=== PATIENT | female | born 1945 | race Caucasian/White ===

== ENCOUNTER → 2017-09-01 08:37 | Outpatient (CLI) | payer MEDICARE, SELFPAY ==
[2017-09-01 09:36] LABS: Alanine Aminotransferase 39 IU/L (9-52); Albumin 4.3 g/dL (3.5-5.0); Albumin Globulin Ratio 1.3 (1.0-2.8); Alkaline Phosphatase 87 U/L (38-126); Aspartate Aminotransferase 27 IU/L (14-36); BUN Creatinine Ratio 26.3 (6-22); Bilirubin Total 0.4 mg/dL (0.2-1.3); Blood Urea Nitrogen 21 mg/dL (7-17); Calcium 9.2 mg/dL (8.4-10.2); Carbon Dioxide 27 mmol/L (22-32); Chloride 102 mmol/L (98-107); Cholesterol 210 mg/dL (140-199); Estimated Glomerular Filt Rate > 60.0 mL/min (>60); Globulin 3.3 g/dL (1.7-4.1); Glucose 110 mg/dL (80-110); HDL Cholesterol 44 mg/dL (40-60); HEMOLYSIS < 15 (0-50); LDL Cholesterol Calculated 135 mg/dL (<100); Potassium 4.1 mmol/L (3.4-5.1); Sodium 143 mmol/L (137-145); Total Protein 7.6 g/dL (6.3-8.2); Triglycerides 157 mg/dL (35-150)
== END ==
PROVIDERS: PCP Family Medicine; Visit Provider Family Medicine
DX: E78.2 Mixed hyperlipidemia (principal)
CPT/HCPCS: 36415; 80053; 80061

== ENCOUNTER → 2017-09-06 10:12 | Outpatient (CLI) | payer MEDICARE, SELFPAY ==
[2017-09-06 11:20] LABS: Add Manual Diff / Slide Review NO; Basophils Percent Auto 1.3 % (0-2); Eosinophils Percent Auto 4.4 % (2-4); Hematocrit 42.5 % (36-46); Hemoglobin 14.2 g/dL (12.0-16.0); Lymphocytes Percent Auto 34.5 % (25-40); Mean Corpuscular HGB Conc 33.5 % (30-36); Mean Corpuscular Hemoglobin 29.9 PG (26-34); Mean Corpuscular Volume 89.3 fL (80-100); Monocytes Percent Auto 4.4 % (3-14); Neutrophils Absolute Auto 5000 /uL (3000-5900); Neutrophils Percent Auto 55.4 % (50-75); Platelet Count 341 X10^3/uL (150-400); Red Blood Cell Count 4.76 X10^6/uL (4.0-5.2); Red Cell Distribution Width 14.6 % (11.6-14.8); White Blood Cell Count 8.9 X10^3/uL (4.5-11.0)
== END ==
PROVIDERS: PCP Family Medicine; Visit Provider Family Medicine
DX: D72.829 Elevated white blood cell count, unspecified (principal)
CPT/HCPCS: 36415; 85025

== ENCOUNTER 2018-03-01 09:13 | Emergency (ER) | payer MEDICARE, SELFPAY ==
[2018-03-01 09:31] VITALS: BP 140/73; PULSE 73; RESP 18; TEMP 36.9; O2SAT 96
--- NOTE | 2018-03-01 09:33 | DI.RAD.S_ITS ---
PROCEDURE: XR KNEE RT 3V INDICATIONS: fall/twist TECHNIQUE: 3 views of the knee were acquired. COMPARISON: None. FINDINGS: Bones: There is a poorly seen fracture involving the lateral tibial plateau. Degenerative changes are seen throughout, including moderate lateral patellofemoral joint space narrowing. Osteophyte formation can be seen along the margins of the patella. Soft tissues: There is a moderate joint effusion. No suspicious soft tissue calcifications. IMPRESSION: Fracture involving the lateral tibial plateau, with associated joint effusion. The scheduled CT study is expected to provide additional diagnostic information. Dictated by: Deejay Solorzano M.D. on 03/01/2018 at 9:56 Approved by: Deejay Solorzano M.D. on 03/01/2018 at 9:58
--- NOTE | 2018-03-01 09:45 | PC.NURSE ---
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
--- NOTE | 2018-03-01 10:48 | ED.LOWEXIN ---
HPI - Extremity Injury (Lower) General Chief Complaint: Extremity Injury, Lower Stated Complaint: FELL AND HURT R KNEE Time Seen by Provider: 03/01/18 10:11 Source: patient Mode of arrival: wheelchair Limitations: no limitations History of Present Illness HPI Narrative: Patient is a 72-year-old female who presents with right knee pain. She was walking the dog when she slipped on the cannon. As she fell onto her elbow she thinks she twisted her knee. She has no numbness or tingling did not have a direct fall onto it. She says that she has known osteopenia. MD complaint: knee injury Related Data Home Medications Medication Instructions Recorded Confirmed albuterol sulfate [Ventolin HFA] 2 puff INH Q4HP PRN #0 06/15/17 03/01/18 aspirin 81 mg tablet,delayed 81 mg PO DAILY tab 09/11/17 03/01/18 release Vitamin D3 1 cap PO DAILY 12/03/17 03/01/18 multivitamin tablet 1 tab PO DAILY 12/03/17 03/01/18 Coq10 1 dose PO DAILY 03/01/18 03/01/18 Fish Oil 1 cap PO DAILY 03/01/18 03/01/18 Magnesium 1 dose PO DAILY 03/01/18 03/01/18 Potassium 1 dose PO DAILY 03/01/18 03/01/18 lisinopril-hydrochlorothiazide 1 tab PO DAILY 03/01/18 03/01/18 [Zestoretic] simvastatin 20 mg PO BEDTIME 03/01/18 03/01/18 Previous Rx's Medication Instructions Recorded tramadol [Ultram] 50 mg PO Q6H PRN #14 tab 03/01/18 Allergies Allergy/AdvReac Type Severity Reaction Status Date / Time peanut [PEANUT] Allergy Severe ASTHMA Verified 12/03/17 15:18 REACTION Sulfa (Sulfonamide Allergy Severe WELTS Verified 12/03/17 15:18 Antibiotics) [SULFA (SULFONAMIDE ANTIBIOTICS)] oyster extract Allergy Intermediate Mild Verified 12/03/17 15:18 [OYSTER EXTRACT] throat swelling Penicillins [PENICILLINS] Allergy Mild DIARRHEA Verified 12/03/17 15:18 morphine [MORPHINE] AdvReac Mild NAUSEA, Verified 12/03/17 15:18 DID NOT WORK FOR PAIN Review of Systems Review of Systems GENERAL: Denies chills,fever HEENT: Denies throat pain RESPIRATORY: Denies dyspnea, cough, wheezing CARDIOVASCULAR: Denies chest pain, palpitations GASTROINTESTINAL: Denies nausea, vomiting MUSCULOSKELETAL: see hPi SKIN: No rash, no laceration, no pruritus NEUROLOGIC: Denies weakness, dizziness, headache, numbness 8 point review of systems is negative except for those stated above and HPI PFSH Medical History Allergic rhinitis (Chronic Unknown) Asthma (Chronic Unknown) Asthma (Chronic Unknown) Carpal tunnel syndrome (Chronic Unknown) Chronic back pain (Chronic Unknown) Eczema (Chronic Unknown) Glaucoma (Chronic 2013) Hyperlipemia (Chronic Unknown) Hypertension (Chronic Unknown) Lumbar disc disease (Chronic Unknown) Osteopenia (Chronic Unknown) Ankle pain (Resolved Unknown) Cataracts, bilateral (Resolved ~2014) Foot pain (Resolved Unknown) Fractures (Resolved Unknown) Heavy menstrual period (Resolved ~1958) Painful menstrual periods (Resolved ~1958) Shoulder pain (Resolved Unknown) Surgical History History of left hip replacement (Resolved 2015) Hx of appendectomy (Resolved 2015) Hx of cataract surgery (Resolved 2014) Hx of tonsillectomy (Resolved ~1953) Family History Child Age: 41 Heart disease Hypertension Stroke Mother Hypertension Stroke High cholesterol Father Heart disease Grandmother Heart disease Grandmother No problems noted. Social History Smoking Status: Former smoker Tobacco: How many years used: 5 alcohol intake: current (occasional) Exam Initial Vital Signs Initial Vital Signs: Vital Signs Temperature 98.4 F 03/01/18 09:31 Pulse Rate 73 03/01/18 09:31 Respiratory Rate 18 03/01/18 09:31 Blood Pressure 140/73 03/01/18 09:31 Pulse Oximetry 96 03/01/18 09:31 GENERAL: A well-appearing alert female cooperative HEENT: Head atraumatic,EOMI, pupils reactive, CARDIOVASCULAR: Regular rate and rhythm without murmurs, rubs or gallops. RESPIRATORY: Breath sounds equal bilaterally, no wheezes rales or rhonchi. ABDOMEN: Soft, nontender. Normoactive bowel sounds all 4 quadrants. No guarding or rebound. EXTREMITIES: Normal range of motion, no clubbing or edema. Neurovascularly intact -right knee mild effusion able to flex and extend distal pedal pulse intact NEUROLOGICAL: Alert and oriented x4.Normal gait and speech. Cranial nerves II through XII grossly intact. SKIN: Warm, dry, no laceration, no petechiae, no rashes or lesions. Course Orders Ordered: ED Orders 03/01/18 09:33 XR knee RT 3V Stat 03/01/18 11:00 CT LE RT wo con Stat Vital Signs - 8 hr 03/01/18 12:24 Pulse Rate 77 Respiratory Rate 17 Blood Pressure [Left Arm] 124/87 Pulse Oximetry 100 MDM - Extremity Injury (Lower) Imaging Data right Knee XR: My impression: Right tibial plateau fracture Radiologist's impression: PROCEDURE: XR KNEE RT 3V INDICATIONS: fall/twist TECHNIQUE: 3 views of the knee were acquired. COMPARISON: None. FINDINGS: Bones: There is a poorly seen fracture involving the lateral tibial plateau. Degenerative changes are seen throughout, including moderate lateral patellofemoral joint space narrowing. Osteophyte formation can be seen along the margins of the patella. Soft tissues: There is a moderate joint effusion. No suspicious soft tissue calcifications. IMPRESSION: Fracture involving the lateral tibial plateau, with associated joint effusion. The scheduled CT study is expected to provide additional diagnostic information. Dictated by: Deejay Solorzano M.D. on 03/01/2018 at 9:56 Approved by: Deejay Solorzano M.D. on 03/01/2018 at 9: CT LE RT: Radiologist's impression: PROCEDURE: CT LE RT WO CON INDICATIONS: Tibial plateau fracture requested Orthopedics TECHNIQUE: Noncontrast 1-1.5 mm axial sections acquired from the mid-patella to the proximal tibia, with coronal and sagittal reformats. [facility], 03/01/2018, 9:35. FINDINGS: Image quality: Excellent. Bones: There is a fracture involving the posterior aspect of the lateral tibial plateau with 4 mm depression (Schatzker II). The involved area measures 2.8 cm anterior-posterior and 12 cm transverse. A small bone island is noted in the tibial eminence. Soft tissues: There is moderate knee joint effusion with a fat/fluid level consistent with hemarthrosis. IMPRESSION: Schatzker II fracture of the lateral tibial plateau with 4 mm central depression. There is moderate hemarthrosis. Dictated by: David Alcantar M.D. on 03/01/2018 at 11:25 MDM Narrative Medical decision making narrative: Dr. Cifuentes has reviewed x-ray request CT. She has reviewed the CT as well. Agrees with knee immobilization nonweightbearing and outpatient follow-up. Discharge Plan Departure Patient Disposition: Home Clinical Impression: Closed fracture of right tibial plateau Discharge Date/Time: 03/01/18 12:43 Interventions: ED Discharge Assessment Last Done: 03/01/18 12:41 Instructions: DI for Tibial Plateau Fracture Activity Restrictions/Additional Instructions: *You have been diagnosed with right tibial plateau fracture *What to do: Keep knee in immobilizer at all times no weight-bearing use crutches *Continue to take medications as directed -tramadol 1 tablet every 6-8 hours if needed for severe pain Tylenol 650 mg every 4 hr if needed mild pain *Follow up with your primary care provider in 2-3 days, up with Orthopedics, call today to schedule up *Return to ER if you should have increasing pain, numbness, tingling or any new, worsening or concerning symptoms CONTROLLED SUBSTANCE DISCHARGE (Narcotoic/benzodiazepine/Flexeril/Phenergan) 1. You have been prescribed narcotic medications, it does have acetaminophen/Tylenol/paracetamol in it so do not take extra Tylenol or Tylenol containing products 2. Please understand that we cannot provide further refills of narcotics, benzodiazepines or controlled substances through the ED and her pain management will need to be through your provider. 3. While on these medications you cannot drive or operate heavy machinery. 4. You cannot sign legal documents or perform any duties such as this. 5. As long as you're taking opiate pain medications he should also be taking a stool softener such as Colace, Dulcolax, MiraLAX or prune juice, to help avoid constipation. Prescriptions: New tramadol [Ultram] 50 mg tablet 50 mg PO Q6H PRN (Reason: pain) Qty: 14 RF: 0 No Action multivitamin Tablet 1 tab PO DAILY RF: 0 Vitamin D3 1 cap PO DAILY RF: 0 aspirin [Adult Low Dose Aspirin] 81 mg tablet,delayed release (DR/EC) 81 mg PO DAILY RF: 0 albuterol sulfate [Ventolin HFA] 90 MCG/PUFF HFA aerosol inhaler 2 puff INH Q4HP PRN (Reason: Shortness Of Breath) Qty: 0 RF: 0 lisinopril-hydrochlorothiazide [Zestoretic] 20-12.5 mg tablet 1 tab PO DAILY RF: 0 simvastatin 20 mg tablet 20 mg PO BEDTIME RF: 0 Fish Oil 1 cap PO DAILY RF: 0 Magnesium 1 dose PO DAILY RF: 0 Potassium 1 dose PO DAILY RF: 0 Coq10 1 dose PO DAILY RF: 0 Referrals: [facility] [Provider Group] Chi Buckner MD [Primary Care Provider] -
--- NOTE | 2018-03-01 11:00 | DI.CT.S_ITS ---
PROCEDURE: CT LE RT WO CON INDICATIONS: Tibial plateau fracture requested Orthopedics TECHNIQUE: Noncontrast 1-1.5 mm axial sections acquired from the mid-patella to the proximal tibia, with coronal and sagittal reformats. COMPARISON: [facility], CR, XR KNEE RT 3V, 03/01/2018, 9:35. FINDINGS: Image quality: Excellent. Bones: There is a fracture involving the posterior aspect of the lateral tibial plateau with 4 mm depression (Schatzker II). The involved area measures 2.8 cm anterior-posterior and 12 cm transverse. A small bone island is noted in the tibial eminence. Soft tissues: There is moderate knee joint effusion with a fat/fluid level consistent with hemarthrosis. IMPRESSION: Schatzker II fracture of the lateral tibial plateau with 4 mm central depression. There is moderate hemarthrosis. Dictated by: David Alcantar M.D. on 03/01/2018 at 11:25 Approved by: David Alacntar M.D. on 03/01/2018 at 11:35
[2018-03-01 12:24] VITALS: BP 124/87; PULSE 77; RESP 17; O2SAT 100
--- NOTE | 2018-03-01 12:41 | PC.NURSE ---
pair of cruthes provided, education provided, verbal understandin instructions.
--- NOTE | 2018-03-01 12:43 | PC.NURSE ---
friend coming for a ride.
== END 2018-03-01 12:43 | disposition home or self-care (01) ==
PROVIDERS: Emergency Provider Emergency Medicine; Family Provider Internal Medicine; PCP Internal Medicine
DX: M25.561 Pain in right knee (principal); W01.0XXA Fall on same level from slipping, tripping and stumbling without subsequent striking against object, initial encounter; Y93.K1 Activity, walking an animal
CPT/HCPCS: 73562; 73700; 99283; 99284

== ENCOUNTER → 2018-12-18 11:07 | Outpatient (CLI) | payer MEDICARE, SELFPAY ==
[2018-12-18 11:48] LABS: Alanine Aminotransferase 25 IU/L (9-52); Albumin 4.5 g/dL (3.5-5.0); Albumin Globulin Ratio 1.6 (1.0-2.8); Alkaline Phosphatase 78 U/L (38-126); Aspartate Aminotransferase 24 IU/L (14-36); BUN Creatinine Ratio 26.3 (6-22); Bilirubin Total 0.5 mg/dL (0.2-1.3); Blood Urea Nitrogen 21 mg/dL (7-17); Calcium 10.6 mg/dL (8.4-10.2); Carbon Dioxide 25 mmol/L (22-32); Chloride 105 mmol/L (98-107); Cholesterol 222 mg/dL (140-199); Estimated Glomerular Filt Rate > 60.0 mL/min (>60); Globulin 2.9 g/dL (1.7-4.1); Glucose 115 mg/dL (80-110); HDL Cholesterol 66 mg/dL (40-60); HEMOLYSIS < 15 (0-50); LDL Cholesterol Calculated 117 mg/dL (<100); Potassium 4.6 mmol/L (3.4-5.1); Sodium 142 mmol/L (137-145); Total Protein 7.4 g/dL (6.3-8.2); Triglycerides 196 mg/dL (35-150)
== END ==
PROVIDERS: PCP Internal Medicine; Visit Provider Internal Medicine
DX: E78.5 Hyperlipidemia, unspecified (principal)
CPT/HCPCS: 36415; 80053; 80061

== ENCOUNTER → 2019-01-25 15:07 | Outpatient (CLI) | payer MEDICARE, SELFPAY ==
[2019-01-25 15:40] LABS: Hemoglobin A1C% w Est Avg Glu 5.6 % (4.0-6.0)
[2019-01-25 15:47] LABS: Uric Acid 4.2 mg/dL (2.5-6.2)
== END ==
PROVIDERS: PCP Internal Medicine; Visit Provider Internal Medicine
DX: M10.9 Gout, unspecified (principal); E11.9 Type 2 diabetes mellitus without complications
CPT/HCPCS: 36415; 83036; 84550

== ENCOUNTER → 2019-04-18 15:26 | Outpatient (CLI) | payer MEDICARE, SELFPAY ==
--- NOTE | 2019-04-18 | DI.RAD.S_ITS ---
PROCEDURE: XR ANKLE RT MIN 3V INDICATIONS: ANKLE PAIN TECHNIQUE: 3 views of the ankle were acquired. COMPARISON: None. FINDINGS: Bones: There is a nondisplaced lucency at the distal fibula. Soft tissues: Mild bimalleolar edema. Achilles tendon appears normal. IMPRESSION: Nondisplaced distal fibular lucency consistent with fracture. Dictated by: Agustina South M.D. on 04/18/2019 at 17:06 Approved by: Agustina South M.D. on 04/18/2019 at 17:07
== END ==
PROVIDERS: PCP Internal Medicine; Visit Provider Nurse Practitioner Family
DX: M25.571 Pain in right ankle and joints of right foot (principal)
CPT/HCPCS: 73610

== ENCOUNTER → 2019-11-05 11:48 | Outpatient (CLI) | payer MEDICARE, SELFPAY ==
[2019-11-05 13:41] LABS: BUN Creatinine Ratio 24.7 (6-22); Blood Urea Nitrogen 21 mg/dL (7-17); Calcium 10.1 mg/dL (8.4-10.2); Carbon Dioxide 23 mmol/L (22-32); Chloride 105 mmol/L (98-107); Estimated Glomerular Filt Rate > 60.0 mL/min (>60); HEMOLYSIS < 15 (0-50); Potassium 4.5 mmol/L (3.4-5.1); Sodium 139 mmol/L (137-145)
[2019-11-05 13:57] LABS: Glucose 86 mg/dL (80-110)
== END ==
PROVIDERS: PCP Student in an Organized Health Care Education/Training Program; Referring Provider Student in an Organized Health Care Education/Training Program; Visit Provider Student in an Organized Health Care Education/Training Program
DX: I10 Essential (primary) hypertension (principal)
CPT/HCPCS: 36415; 80048

== ENCOUNTER → 2020-04-17 10:56 | Outpatient (CLI) | payer MEDICARE, SELFPAY ==
[2020-04-17] MEDS: COVID-19 VACC #1, MRNA(MOD) 100 MCG/0.5 ML VIAL IM (11:02)
== END ==
PROVIDERS: PCP Student in an Organized Health Care Education/Training Program; Visit Provider Internal Medicine
DX: Z23 Encounter for immunization (principal)
CPT/HCPCS: 0011A; 91301

== ENCOUNTER → 2020-05-08 13:02 | Outpatient (CLI) | payer MEDICARE, SELFPAY | PROVIDERS: PCP Nurse Practitioner Family; Referring Provider Nurse Practitioner Family; Visit Provider Nurse Practitioner Family | DX: M85.832 Other specified disorders of bone density and structure, left forearm (principal); Z78.0 Asymptomatic menopausal state; Z87.891 Personal history of nicotine dependence | CPT/HCPCS: 77080; 77081 ==

== ENCOUNTER → 2020-05-15 10:54 | Outpatient (CLI) | payer MEDICARE, SELFPAY ==
[2020-05-15] MEDS: COVID-19 VACC #2, MRNA(MOD) 100 MCG/0.5 ML VIAL IM (11:00)
== END ==
PROVIDERS: PCP Nurse Practitioner Family; Visit Provider Internal Medicine
DX: Z23 Encounter for immunization (principal)
CPT/HCPCS: 0012A; 91301

== ENCOUNTER → 2020-06-10 09:04 | Outpatient (CLI) | payer MEDICARE, SELFPAY ==
[2020-06-10 11:21] LABS: COVID19 -Nasal RAPID Negative (Negative)
== END ==
PROVIDERS: PCP Nurse Practitioner Family; Visit Provider Physician Assistant
DX: Z01.812 Encounter for preprocedural laboratory examination (principal); Z20.822 Contact with and (suspected) exposure to COVID-19
CPT/HCPCS: 87635; C9803

== ENCOUNTER 2020-06-12 12:31 | Day surgery (SDC) | payer MEDICARE, SELFPAY ==
--- NOTE | 2020-06-12 12:01 | PM.HP.1 ---
History of Present Illness History of Present Illness Date Patient Seen: 06/12/20 Chief complaint: SCREENING COLONOSCOPY Narrative: 74 year old female comes in today for consideration of a screening colonoscopy. Has never had a colonoscopy. She did have a sigmoidoscopy many years ago, approximately 30, reportedly normal. There have been no lower GI symptoms suggesting disease such as change in bowel habits, bleeding, abdominal pain or anemia. There's been no family history of colon cancer or colon polyps. Overall health issues have been stable, including no major cardiac events for at least 6 weeks. PCP: REJI Cesar Past medical history Hypertension Hyperlipidemia Gout Depression Mild intermittent asthma Allergies Chronic pain Eczema Lumbar disc disease Osteopenia Past surgical history: History of left replacement, bilateral Appendectomy Cataracts Tonsillectomy Family history: No colon cancer or colon polyps. Social history: to [employer] [facility]. Occasional alcohol use, former smoker. Patient History Medical History (Updated 06/10/20 @ 17:00 by Karla Buckner RN) Allergic rhinitis (Unknown) Ankle pain (Unknown) Asthma (Unknown) Asthma (Unknown) Carpal tunnel syndrome (Unknown) Cataracts, bilateral (~2014) Chronic back pain (Unknown) Depression Depression, controlled Eczema (Unknown) Foot pain (Unknown) Fractures (Unknown) Glaucoma (2012) Heavy menstrual period (~1958) Hyperlipemia (Unknown) Hypertension (Unknown) Lumbar disc disease (Unknown) Osteopenia (Unknown) Painful menstrual periods (~1958) Shoulder pain (Unknown) Surgical History (Updated 11/09/19 @ 10:50 by Ramos Barr MD) History of left hip replacement (2015) Hx of appendectomy (2015) Hx of cataract surgery (2014) Hx of tonsillectomy (~1953) Family & Social History Family History (Updated 10/03/17 @ 16:55 by Debora Meléndez LPN) Child Age: 43 Heart disease Hypertension Stroke Mother Hypertension Stroke High cholesterol Father Heart disease Grandmother Heart disease Grandmother No problems noted. Tobacco & Substance use: Smoking Status Former smoker alcohol intake current alcohol intake frequency other Substance Use Type does not use Meds Home Medications and Allergies Home Medications Medication Instructions Recorded Confirmed Type albuterol sulfate [Ventolin HFA] 2 puff INH Q4HP PRN #0 06/15/17 06/12/20 History aspirin 81 mg tablet,delayed 81 mg PO DAILY tab 09/11/17 06/12/20 History release Vitamin D3 1 cap PO DAILY 12/03/17 06/12/20 History multivitamin 1 tab PO DAILY 12/03/17 06/12/20 History Fish Oil 1 cap PO DAILY 03/01/18 06/12/20 History Magnesium 1 dose DAILY 03/01/18 06/12/20 History simvastatin 20 mg PO BEDTIME 03/01/18 06/12/20 History allopurinol 300 mg tablet 300 mg PO tab 11/05/19 11/05/19 History bupropion HCl 300 mg 24 hr tablet, 300 mg PO DAILY tab 11/05/19 06/12/20 History extended release lisinopril 20 mg tablet 20 mg PO DAILY tab 11/05/19 06/12/20 History Allergies Allergy/AdvReac Type Severity Reaction Status Date / Time peanut [PEANUT] Allergy Severe ASTHMA Verified 11/05/19 11:04 REACTION Sulfa (Sulfonamide Allergy Severe WELTS Verified 11/05/19 11:04 Antibiotics) [SULFA (SULFONAMIDE ANTIBIOTICS)] oyster extract Allergy Intermediate Mild Verified 11/05/19 11:04 [OYSTER EXTRACT] throat swelling Penicillins [PENICILLINS] Allergy Mild DIARRHEA Verified 11/05/19 11:04 morphine [MORPHINE] AdvReac Mild NAUSEA, Verified 11/05/19 11:04 DID NOT WORK FOR PAIN Review of Systems Review of Systems ROS: Yes All systems reviewed with the patient and are negative except as otherwise documented Exam Narrative Exam Narrative: GENERAL: Alert and oriented, appearing stated age and in no acute distress. HEENT: Head normocephalic/atraumatic. Pupils equal, round, and reactive to light and accomodation. Extraocular muscles intact. Tympanic membranes clear. Nasal mucosa moist, septum midline. Oral mucosa moist, no lesions. Neck soft and supple, no lymphadenopathy. LUNGS: Clear to ausculation bilaterally, no wheezes, rhonchi or rales. CV: Normal S1 and S2 with regular rate and rhythm, no audible murmurs, rubs or gallops. ABDOMEN: Soft, non-tender, non-distended, no organomegaly. Positive bowel sounds. EXTREMITIES: No clubbing, cyanosis, or edema. NEURO: Cranial nerves II through XII grossly intact, no focal deficits. PSYCH: Alert and oriented x 3. SKIN: No concerning lesions. Assessment & Plan Assessment & Plan narrative: 1. Screening for colon cancer Plan for colonoscopy. The nature and character of the procedure as well as anticipated results were discussed. The possibility of not completing the procedure was also discussed. Possible complications including aspiration pneumonia, bleeding, perforation and reaction to medications either for sedation or preparation and missed lesions were discussed. Questions were answered and proceeding to the colonoscopy was elected. Informed consent signed. I sincerely appreciate the referral allowing me to participate in this patient's care. Please contact me with any questions or concerns. Quality MIPS - Admit Advanced Care Plan / Current Medications Measures: #47 ? Advanced Care Plan Clinician documentation instruction: document at admission. [] I confirmed that the patient's Advance Care Plan is present, code status is documented, or surrogate decision maker is listed in the patient?s medical record. [SATISFIES MIPS PERFORMANCE] If Yes, Stop Here [] The patient?s Advance Care plan is not present because: (select) [MIPS PERFORMANCE EXCEPTION/EXCLUSION] [] I confirmed today that the patient does not wish or was not able to name a surrogate decision maker or provide an Advance Care Plan. [] Hospice care is currently being provided or has been provided this calendar year [] I did NOT confirm today the presence of an Advance Care Plan or surrogate decision maker documented within the patient's medical record. [DOES NOT SATISFY MIPS PERFORMANCE] #130 - Documentation of Current Medications in the Medical Record Clinician documentation instruction: use macro the first time you see a patient. [] I have utilized all available immediate resources to obtain, update, or review the patient?s current medications. [SATISFIES MIPS PERFORMANCE] If Yes, Stop Here [] The patient is not eligible for medication reconciliation; the patient is in an emergent medical situation where delaying treatment would jeopardize the patient?s health. [MIPS PERFORMANCE EXCEPTION/EXCLUSION] [] I did NOT confirm, update or review the patient's current list of medications today. [DOES NOT SATISFY MIPS PERFORMANCE] MIPS - CL Central Venous Catheter Placement Measure: #76 ? Prevention of Central Venous Catheter (CVC) ? Related Bloodstream Infection Clinician documentation instruction: use macro every time you place a central line. [] All elements of Maximal Sterile Barrier Technique, including hand hygiene, skin prep, and sterile ultrasound technique (if used) were followed. [SATISFIES MIPS PERFORMANCE] If Yes, Stop Here [] If ?No?, the medical reason all elements were NOT used for medical reason [] (ex. emergent condition). [] Maximal Sterile Barrier Technique was not followed, no reason provided [DOES NOT SATISFY MIPS PERFORMANCE] MIPS - DC Heart Failure Measures: #5 - Heart Failure (HF): Angiotensin-Converting Enzyme (CRISTO) Inhibitor or Angiotensin Receptor Keyon (ARB) Therapy for Left Ventricular Systolic Dysfunction (LVSD) and #8 - Heart Failure (HF): Beta-Keyon Therapy for Left Ventricular Systolic Dysfunction (LVSD) Clinician documentation instruction: use macro at every CHF discharge. [] The patient has current or prior documentation of left ventricular ejection fraction (LVEF) less than 40%, or moderate or severely depressed left ventricular systolic function. Answer both: [SATISFIES MIPS PERFORMANCE] [] The patient was prescribed or already taking an Angiotensin-Converting Enzyme (CRISTO) Inhibitor, or Angiotensin Receptor Keyon (ARB). [] The patient was prescribed or already taking a beta-keyon. If Yes to Both, Stop Here [] Patient not prescribed/taking: [MIPS PERFORMANCE EXCEPTION/EXCLUSION] [] CRISTO or ARB for medical/patient/system reason(s) including [] (ex. allergy, intolerance, contraindication) [] Beta-keyon for medical/patient/system reason(s) including [] (ex. allergy, intolerance, contraindication) [] Patient not prescribed/taking: [DOES NOT SATISFY MIPS PERFORMANCE] [] CRISTO or ARB, no reason given [] Beta-keyon, no reason given
--- NOTE | 2020-06-12 12:06 | PM.OP.ENDO ---
Operative Date/Time/Diagnoses Date of procedure: 06/12/20 Procedure Notes Procedure in detail: ENDOSCOPIST: Leighann Fleming MD Sedation RN: Susan Hester RN Sedation start time: 2:01 p.m. Sedation end time: 2:27 p.m. PROCEDURE: Colonoscopy INDICATIONS: 1. Screening for colon cancer MEDICATION: Levsin 0.125 mg sublingual, incremental doses of Versed and fentanyl until appropriate level sedation achieved. ASA CLASS: 2 CECAL WITHDRAWAL TIME: 9 minutes COMPLICATIONS: None. EXTENT OF PROCEDURE: Cecum. QUALITY OF PREP: Good with portions of liquid stool. PROCEDURE: Prior to insertion of the colonoscope, a digital rectal examination was accomplished with circumferential palpation of the distal rectal mucosa without significant findings being noted. The high-definition colonoscope was passed into the rectum in the usual fashion and advanced over to the cecum without difficulty. The ileocecal valve, appendiceal stoma, and medial wall all could be inspected and []no abnormalities were seen. ASCENDING COLON: As the colonoscope was withdrawn, care was taken to expose and inspect the haustral folds and no abnormalities were seen. HEPATIC FLEXURE: Normal, no polyps, diverticula or other abnormalities. TRANSVERSE COLON: Normal, no polyps, diverticula or other abnormalities. DESCENDING COLON: Minor diverticulosis, otherwise, normal, no polyps or other abnormalities. SIGMOID COLON: Minor diverticulosis, otherwise, normal, no polyps or other abnormalities. RECTUM: Normal. J maneuver was produced. There was no significant perianal disease. The J maneuver was broken. The remainder of the rectum was inspected and there was no external hemorrhoid disease. The scope was withdrawn. IMPRESSION: 1. Normal colonoscopy 2. Minor diverticulosis, left-sided PLAN: 1. If life expectancy is greater than 10 years, can repeat colonoscopy in 10 years. Secondary to age, this could also be her last colonoscopy. The possibility of a missed lesion including a malignancy has been discussed with the patient previously. Potential alarm symptoms have been discussed and should be reported immediately.
[2020-06-12 12:58] VITALS: BP 129/75; PULSE 81; RESP 13; TEMP 36.2; O2SAT 100; BMI 25.7
[2020-06-12] MEDS: LACTATED RINGERS 1,000 ML 200 ML IV (13:07)
[2020-06-12] MEDS: HYOSCYAMINE 0.125 MG TABLET PO (13:17)
[2020-06-12] MEDS: MIDAZOLAM 5 MG/5 ML VIAL IV (14:14)
[2020-06-12] MEDS: fentaNYL 250 MCG/5 ML INJ IV (14:14)
[2020-06-12 14:31] VITALS: BP 110/60; PULSE 77; RESP 12; TEMP 35.9; O2SAT 95
[2020-06-12 14:36] VITALS: BP 108/67; PULSE 78; RESP 16; O2SAT 96
[2020-06-12 14:40] VITALS: BP 118/73; PULSE 73; RESP 12; O2SAT 96
[2020-06-12 14:46] VITALS: BP 122/70; PULSE 70; RESP 14; TEMP 37.1; O2SAT 96
== END 2020-06-12 15:07 | disposition home or self-care (01) ==
PROVIDERS: PCP Nurse Practitioner Family; Referring Provider Student in an Organized Health Care Education/Training Program; Visit Provider Student in an Organized Health Care Education/Training Program
PROC: 0DJD8ZZ Inspection of Lower Intestinal Tract, Via Natural or Artificial Opening Endoscopic (ICD-10-PCS; CPT 45378; principal; 2020-06-12 13:45)
DX: Z12.11 Encounter for screening for malignant neoplasm of colon (principal); K57.30 Diverticulosis of large intestine without perforation or abscess without bleeding
CPT/HCPCS: G0121; J2250; J3010

== ENCOUNTER → 2020-07-02 07:59 | Outpatient (CLI) | payer MEDICARE, SELFPAY ==
--- NOTE | 2020-07-02 | DI.MG.S_ITS ---
BILATERAL DIGITAL SCREENING MAMMOGRAM 3D/2D WITH CAD: 07/02/2020 CLINICAL: Routine screening. Comparison is made to exams dated: 05/08/2013 mammogram, 08/26/2011 mammogram, and 02/06/2009 mammogram - [facility]. There are scattered fibroglandular elements in both breasts. Current study was also evaluated with a Computer Aided Detection (CAD) system. There are grouped fine punctate calcifications in the left breast central to the nipple middle depth. There also are grouped fine calcifications in the left breast central to the nipple posterior depth. No other significant masses, calcifications, or other findings are seen in either breast. IMPRESSION: INCOMPLETE: NEEDS ADDITIONAL IMAGING EVALUATION The grouped fine punctate calcifications in the left breast central to the nipple middle depth are indeterminate. Spot magnification and additional views are recommended. The grouped fine calcifications in the left breast central to the nipple posterior depth are indeterminate. Mediolateral, spot magnification, and additional views are recommended. This exam was interpreted at Station ID: [id number]. NOTE: For mammograms, a report in lay terms will be sent to the patient. Approximately 15% of breast malignancies will not be visualized mammographically. In the management of a palpable breast mass, a negative mammogram must not discourage biopsy of a clinically suspicious lesion. Electronically Signed By: Wilbert humphreys/rehana:07/02/2020 09:36:08 letter sent: Additional Imaging Needed ACR BI-RADS Category 0: Incomplete [id number]
== END ==
PROVIDERS: PCP Nurse Practitioner Family; Referring Provider Nurse Practitioner Family; Visit Provider Nurse Practitioner Family
DX: Z12.31 Encounter for screening mammogram for malignant neoplasm of breast (principal); R92.1 Mammographic calcification found on diagnostic imaging of breast
CPT/HCPCS: 77063; 77067

== ENCOUNTER → 2020-07-13 12:17 | Outpatient (CLI) | payer MEDICARE, SELFPAY ==
--- NOTE | 2020-07-13 12:19 | DI.MG.S_ITS ---
UNILATERAL LEFT DIGITAL DIAGNOSTIC MAMMOGRAM 3D/2D WITH ADDITIONAL VIEWS: 07/13/2020 CLINICAL: Additional evaluation requested from prior study. Comparison is made to exams dated: 07/02/2020 mammogram - [facility], 05/08/2013 mammogram, and 08/26/2011 mammogram - [facility]. There are scattered fibroglandular elements in left breast. There are 0.6 cm grouped fine and punctate calcifications in the left breast central to the nipple middle depth. These are increased in number. There also are regional fine and punctate calcifications in the left breast central to the nipple posterior depth. No other significant masses or calcifications are seen in the breast. IMPRESSION: SUSPICIOUS OF MALIGNANCY The 0.6 cm grouped fine and punctate calcifications in the left breast central to the nipple middle depth are at a moderate suspicion for malignancy. -A stereotactic biopsy is recommended. The regional fine and punctate calcifications in the left breast central to the nipple posterior depth are at a moderate suspicion for malignancy. -This area of calcifications is similar but more regional than grouped. Recommend biopsy of the grouped calcifications described above first. If pathology is malignant, second site biopsy or localization could be preformed to guide in treatment planning. Exam findings were discussed with the patient by Dr. Walt Rucker. This exam was interpreted at Station ID: [id number]. NOTE: For mammograms, a report in lay terms will be sent to the patient. Approximately 15% of breast malignancies will not be visualized mammographically. In the management of a palpable breast mass, a negative mammogram must not discourage biopsy of a clinically suspicious lesion. Electronically Signed By: Ghanshyam Howard M.D. [facility]/:07/13/2020 13:43:00 letter sent: Biopsy Required ACR BI-RADS Category 4b: Suspicious abnormality - intermediate suspicion of malignancy 3344F
== END ==
PROVIDERS: PCP Nurse Practitioner Family; Referring Provider Nurse Practitioner Family; Visit Provider Nurse Practitioner Family
DX: R92.8 Other abnormal and inconclusive findings on diagnostic imaging of breast (principal); R92.1 Mammographic calcification found on diagnostic imaging of breast
CPT/HCPCS: 77065; G0279

== ENCOUNTER 2020-11-26 16:00 | Outpatient (RCR) | payer MEDICARE, SELFPAY ==
--- NOTE | 2020-10-07 09:53 | PT.OIE ---
Current Diagnoses Pain in right hip (10/06/20) Pain in left hip (10/06/20) Stiffness of left hip, not elsewhere classified (10/06/20) Sciatica, left side (10/06/20) Muscle weakness (generalized) (10/06/20) Trochanteric bursitis, left hip (10/06/20) Aftercare following joint replacement surgery (10/06/20) Past Medical History (Last Reviewed 08/19/20 @ 15:35 by Shawna Li MD) Allergic rhinitis (Unknown) Ankle pain (Unknown) Asthma (Unknown) Asthma (Unknown) Carpal tunnel syndrome (Unknown) Cataracts, bilateral (~2014) Chronic back pain (Unknown) Depression Depression, controlled Eczema (Unknown) Foot pain (Unknown) Fractures (Unknown) Glaucoma (2012) Heavy menstrual period (~1958) History of left hip replacement (2015) Hx of appendectomy (2015) Hx of cataract surgery (2014) Hx of tonsillectomy (~1953) Hyperlipemia (Unknown) Hypertension (Unknown) Lumbar disc disease (Unknown) Osteopenia (Unknown) Painful menstrual periods (~1958) Shoulder pain (Unknown) Past Surgical History (Last Reviewed 08/19/20 @ 15:35 by Shawna Li MD) History of left hip replacement (2015) Hx of appendectomy (2015) Hx of cataract surgery (2014) Hx of tonsillectomy (~1953) Visit Care Team Role Provider Type Leighann Fleming MD Family Provider Physician Primary Care Provider Specialty: Family Practice Address: [address] [place] [address], [facility] Email: [email or web address] REJI Cesar Attending Provider Advanced Coal Hauler Referring Provider Specialty: Family Practice Address: [address] [place] [address], [id number] Email: Physical Therapy Initial Evaluation PT-OP-A Visit Information Start: 10/06/20 17:33 Freq: Status: Active Protocol: Document 10/06/20 16:00 DCW (Rec: 10/07/20 09:53 DCW [id number]) Out-Patient Physical Therapy Visit Information Visit Information Visit Type Initial Evaluation Visit Start Time 16:00 Visit Stop Time 16:45 Total Visit Minutes 45 Visit Number 1 Number of HEDIS REGISTERED NURSE RN Visits 0 Evaluation Information Evaluation Date 10/06/20 PT-OP-B Current Condition Start: 10/06/20 17:33 Freq: Status: Active Protocol: Document 10/06/20 16:00 DCW (Rec: 10/07/20 09:53 [facility] [id number]) Current Condition History of Current Condition Onset Date A couple of months Current Complaints left>right posterior hip pain History of Current Condition Pt is a 74 year old female presenting with a two month history of left greater than right posterior hip pain. Pt reports she has the most pain lying on her side in bed, or when she first gets up and starts walking after sitting for a while. 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 Pt feels like it is probably sciatic nerve. Prior Treatments and Tests B XOCHILT anterior approach Treatment Goals Patient/Caregiver Goals Decrease hip pain PT-OP-C Subjective Start: 10/06/20 17:33 Freq: Status: Active Protocol: Document 10/06/20 16:00 DCW (Rec: 10/07/20 09:53 [facility] [id number]) OP-PT Subjective Patient Comments Patient Comments I think my left is worst because that was the first one I had replaced, but then my right was still so bad, I was not really able to focus on getting my left better. Patient Reported Progress Same Patient Questionnaires Lower Extremity Functional Scale LEFS Score 62/80 = 77.5% LEFS Impairment 20 to 39% Impaired (Score 48- 62) OP-PT Pain Assessment Location Left Posterior Lateral Hip Intensity 3 Scale Used Numeric (0 - 10) PT-OP-F Manual Assessment Start: 10/06/20 17:33 Freq: Status: Active Protocol: Document 10/06/20 16:00 DCW (Rec: 10/07/20 09:53 LAW [id number]) Manual Assessments Soft Tissue Assessment Soft Tissue Mobility Assessment Moderate tone with tenderness to palpation 3/4: Wincing and withdraw along bilateral piriformis, left ITB, bilateral psoas PT-OP-L Special Tests Start: 10/06/20 17:33 Freq: Status: Active Protocol: Document 10/06/20 16:00 DCW (Rec: 10/07/20 09:53 [facility] [id number]) Special Tests Lumbar Spine Special Tests Vertical Spine Loading Test Results Negative Straight Leg Raise Test Results Negative Slump Test Results Negative Compression Test Results Negative Hip Special Tests Piriformis Test Results Positive bilaterally ROMINA Test Results Mild c/o L hip pain PT-OP-M Strength Start: 10/06/20 17:33 Freq: Status: Active Protocol: Document 10/06/20 16:00 DCW (Rec: 10/07/20 09:53 [facility] [id number]) Hip Strength Hip Manual Muscle Testing Right Flexion (L2) 4+ Good+ Abduction 4+ Good+ Adduction 4+ Good+ External Rotation 4+ Good+ Internal Rotation 4- Good- Left Flexion (L2) 4+ Good+ Abduction 4 Good Adduction 4+ Good+ External Rotation 4+ Good+ Internal Rotation 3+ Fair+ Knee Strength Knee Manual Muscle Testing Right Flexion (S2) 4+ Good+ Extension (L3) 4+ Good+ Left Flexion (S2) 4+ Good+ Extension (L3) 4+ Good+ PT-OP-Q Treatments Start: 10/06/20 17:33 Freq: Status: Active Protocol: Document 10/06/20 16:00 DCW (Rec: 10/06/20 17:36 [facility] [id number]) Therapeutic Exercises Supine Exercises 1 Supine Exercise Name Piriformis stretch - knee to opposite shoulder Side left Sitting Exercises 1 Sitting Exercise Name Piriformis stretch - seated figure-4 Side left PT-OP-T Assessment and Plan Start: 10/06/20 17:33 Freq: Status: Active Protocol: Document 10/06/20 16:00 [facility] (Rec: 10/07/20 09:53 [facility] [id number]) Physical Therapy Assessment Rehab Potential Rehabilitation Potential Good Evaluation Complexity Number of Personal Factors/Comorbidities 1-2 Number of Body Systems Impaired 1-2 Clinical Presentation at Evaluation Stable Impairments Impairments Functional Activities, Functional Mobility,Pain,Soft Tissue Mobility,Strength,Tone Goals Three Impairment MMT shows left IR weakness of 3+/5 Chcf Goal (LTG) Pt to exhibit at least 4/5 hip MMT in all planes to show improvement in mobility and stability of hips and spine LTG Duration 12/07/20 Two Impairment Pt has pain in hip when initiating gait following rest Cemetery Keeper Goal (LTG) Pt to get up in the morning and begin walking with no increased pain on 07/31 morning over the previous week to show improve function and soft tissue tone through hip musculature LTG Duration 12/07/20 One Impairment Pt does not have an appropriate home exercise plan Short Term Goal (STG) Pt to be independent and compliant with an appropriate HEP STG Duration 11/06/20 Assessment Summary Assessment Pt presents with signs and symptoms consistent with possible sciatica due to piriformis tightness bilaterally, left>right. No notable positive special tests in low back or hips, pt likely just has some general hip weakness following bilateral hip replacements, which resulted in protective muscle spasming for added stability. Pt should benefit from skilled therapy focusing on hip strengthening, STM to decrease tone, modalities for pain control and soft tissue mobility, and flexibility. Physical Therapy Plan Frequency and Duration Frequency of Treatment 2x/Week Duration of Treatment Two months Plan of Care Start Date 10/06/20 Plan of Care End Date 12/07/20 Therapeutic Interventions Therapeutic Interventions Home Exercise Program,Joint Mobilizations,Manual Therapy, Neuromuscular Re-education, Patient/Caregiver Education, Self-Care/Home Management,Soft Tissue Mobilization, Therapeutic Activities, Therapeutic Exercises Modalities Cold Pack/Ice Massage,Electric Stimulation,Hot Packs, Ultrasound Next Visit Focus/Plan Next Note Type Treatment Note Next Visit Plan Hip flexibility, STM, strengthening
--- NOTE | 2020-10-07 09:54 | PT.OPPOC ---
Physical, Occupational & Speech Therapy At [facility] Current Diagnoses Pain in right hip (10/06/20) Pain in left hip (10/06/20) Stiffness of left hip, not elsewhere classified (10/06/20) Sciatica, left side (10/06/20) Muscle weakness (generalized) (10/06/20) Trochanteric bursitis, left hip (10/06/20) Aftercare following joint replacement surgery (10/06/20) Visit Care Team Role Provider Type Leighann Fleming MD Family Provider Physician Primary Care Provider Specialty: [facility] Practice Address: [address] [place] [address], [facility] [place], [address] Email: [email or web address] REJI Cesar Attending Provider Advanced Business Initiatives Manager Referring Provider Specialty: [facility] Address: [address] [place] [address]. [facility], [address] Email: Plan Of Care PT-OP-T Assessment and Plan Start: 10/06/20 17:33 Freq: Status: Active Protocol: Document 10/06/20 16:00 DCW (Rec: 10/07/20 09:53 DCW [id number]) Physical Therapy Assessment Rehab Potential Rehabilitation Potential Good Evaluation Complexity Number of Personal Factors/Comorbidities 1-2 Number of Body Systems Impaired 1-2 Clinical Presentation at Evaluation Stable Impairments Impairments Functional Activities, Functional Mobility,Pain,Soft Tissue Mobility,Strength,Tone Goals Three Impairment MMT shows left IR weakness of 3+/5 Rib Cutter Goal (LTG) Pt to exhibit at least 4/5 hip MMT in all planes to show improvement in mobility and stability of hips and spine LTG Duration 12/07/20 Two Impairment Pt has pain in hip when initiating gait following rest Rib Cutter Goal (LTG) Pt to get up in the morning and begin walking with no increased pain on 5/ morning over the previous week to show improve function and soft tissue tone through hip musculature LTG Duration 12/07/20 One Impairment Pt does not have an appropriate home exercise plan Short Term Goal (STG) Pt to be independent and compliant with an appropriate HEP STG Duration 11/06/20 Assessment Summary Assessment Pt presents with signs and symptoms consistent with possible sciatica due to piriformis tightness bilaterally, left>right. No notable positive special tests in low back or hips, pt likely just has some general hip weakness following bilateral hip replacements, which resulted in protective muscle spasming for added stability. Pt should benefit from skilled therapy focusing on hip strengthening, STM to decrease tone, modalities for pain control and soft tissue mobility, and flexibility. Physical Therapy Plan Frequency and Duration Frequency of Treatment 2x/Week Duration of Treatment Two months Plan of Care Start Date 10/06/20 Plan of Care End Date 12/07/20 Therapeutic Interventions Therapeutic Interventions Home Exercise Program,Joint Mobilizations,Manual Therapy, Neuromuscular Re-education, Patient/Caregiver Education, Self-Care/Home Management,Soft Tissue Mobilization, Therapeutic Activities, Therapeutic Exercises Modalities Cold Pack/Ice Massage,Electric Stimulation,Hot Packs, Ultrasound Next Visit Focus/Plan Next Note Type Treatment Note Next Visit Plan Hip flexibility, STM, strengthening Plan of Care Dates Plan of Care Start Date 10/06/20 Plan of Care End Date 12/07/20 Electronically Signed by: Den Diego, PT 10/07/20 0954 Please Sign and Return: I have reviewed this Plan of Care and certify that the skilled therapy services above are required to meet the patient?s needs. Physician Signature Date Printed Name and Credentials Clinical Instructor Signature Printed Name and Credentials
--- NOTE | 2020-10-08 16:43 | PT.OTN ---
Current Diagnoses Pain in right hip (10/08/20) Pain in left hip (10/08/20) Stiffness of left hip, not elsewhere classified (10/08/20) Sciatica, left side (10/08/20) Muscle weakness (generalized) (10/08/20) Trochanteric bursitis, left hip (10/08/20) Aftercare following joint replacement surgery (10/08/20) Physical Therapy Treatment Note PT-OP-A Visit Information Start: 10/06/20 17:33 Freq: Status: Active Protocol: Document 10/08/20 16:00 DCW (Rec: 10/08/20 16:43 DCW [id number]) Out-Patient Physical Therapy Visit Information Visit Information Visit Type Treatment Note Visit Start Time 16:00 Visit Stop Time 16:45 Total Visit Minutes 45 Visit Number 2 Number of CORONER/MEDICAL EXAMINER Visits 0 Evaluation Information Evaluation Date 10/06/20 PT-OP-B Current Condition Start: 10/06/20 17:33 Freq: Status: Active Protocol: Document 10/06/20 16:00 DCW (Rec: 10/07/20 09:53 DCW [id number]) Current Condition History of Current Condition Onset Date A couple of months Current Complaints left>right posterior hip pain History of Current Condition Pt is a 74 year old female presenting with a two month history of left greater than right posterior hip pain. Pt reports she has the most pain lying on her side in bed, or when she first gets up and starts walking after sitting for a while. 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 Pt feels like it is probably sciatic nerve. Prior Treatments and Tests B XOCHILT anterior approach Treatment Goals Patient/Caregiver Goals Decrease hip pain PT-OP-C Subjective Start: 10/06/20 17:33 Freq: Status: Active Protocol: Document 10/08/20 16:00 DCW (Rec: 10/08/20 16:43 DCW [id number]) OP-PT Subjective Patient Comments Patient Comments It really hurts today. PT-OP-F Manual Assessment Start: 10/06/20 17:33 Freq: Status: Active Protocol: Document 10/06/20 16:00 DCW (Rec: 10/07/20 09:53 DCW [id number]) Manual Assessments Soft Tissue Assessment Soft Tissue Mobility Assessment Moderate tone with tenderness to palpation 3/4: Wincing and withdraw along bilateral piriformis, left ITB, bilateral psoas PT-OP-L Special Tests Start: 10/06/20 17:33 Freq: Status: Active Protocol: Document 10/06/20 16:00 DCW (Rec: 10/07/20 09:53 DCW [id number]) Special Tests Lumbar Spine Special Tests Vertical Spine Loading Test Results Negative Straight Leg Raise Test Results Negative Slump Test Results Negative Compression Test Results Negative Hip Special Tests Piriformis Test Results Positive bilaterally ROMINA Test Results Mild c/o L hip pain PT-OP-M Strength Start: 10/06/20 17:33 Freq: Status: Active Protocol: Document 10/06/20 16:00 DCW (Rec: 10/07/20 09:53 DCW [id number]) Hip Strength Hip Manual Muscle Testing Right Flexion (L2) 4+ Good+ Abduction 4+ Good+ Adduction 4+ Good+ External Rotation 4+ Good+ Internal Rotation 4- Good- Left Flexion (L2) 4+ Good+ Abduction 4 Good Adduction 4+ Good+ External Rotation 4+ Good+ Internal Rotation 3+ Fair+ Knee Strength Knee Manual Muscle Testing Right Flexion (S2) 4+ Good+ Extension (L3) 4+ Good+ Left Flexion (S2) 4+ Good+ Extension (L3) 4+ Good+ PT-OP-Q Treatments Start: 10/06/20 17:33 Freq: Status: Active Protocol: Document 10/08/20 16:00 DCW (Rec: 10/08/20 16:43 DCW [id number]) Cardio Equipment Recumbent Elliptical ([employer]) Duration (Minutes) 5 Resistance 3 Seat Position 6 Gym Equipment Shuttle Recovery Unilateral Squats Resistance 50# Shuttle Recovery Platform Stable Bilateral Squats Resistance 100# Shuttle Recovery Platform Stable Therapeutic Exercises Sidelying Exercises 2 Sidelying Exercise Name Reverse Clamshell Side bilateral 1 Sidelying Exercise Name Clamshell Side bilateral Other Exercises 1 Other Exercise Name Resisted side-stepping Manual Therapy Treatment Soft Tissue Mobilization 3 Body Location B Paraspinals Mobilization Type Strumming,Sustained Pressure, Trigger Point Release Body Position Sidelying 2 Body Location B QL Mobilization Type Strumming,Sustained Pressure, Trigger Point Release Body Position Sidelying 1 Body Location B Piriformis Mobilization Type Strumming,Sustained Pressure, Trigger Point Release Body Position Sidelying PT-OP-T Assessment and Plan Start: 10/06/20 17:33 Freq: Status: Active Protocol: Document 10/08/20 16:00 DCW (Rec: 10/08/20 16:43 DCW [id number]) Physical Therapy Assessment Impairments Impairments Functional Activities, Functional Mobility,Pain,Soft Tissue Mobility,Strength,Tone Goals Three Impairment MMT shows left IR weakness of 3+/5 Long-Term Goal (LTG) Pt to exhibit at least 4/5 hip MMT in all planes to show improvement in mobility and stability of hips and spine LTG Duration 12/07/20 Two Impairment Pt has pain in hip when initiating gait following rest Em Physician Goal (LTG) Pt to get up in the morning and begin walking with no increased pain on 07/31 morning over the previous week to show improve function and soft tissue tone through hip musculature LTG Duration 12/07/20 One Impairment Pt does not have an appropriate home exercise plan Short Term Goal (STG) Pt to be independent and compliant with an appropriate HEP STG Duration 11/06/20 Assessment Summary Assessment Pt tolerated treatment very well today, did have some soreness with STM. Physical Therapy Plan Frequency and Duration Frequency of Treatment 2x/Week Duration of Treatment Two months Plan of Care Start Date 10/06/20 Plan of Care End Date 12/07/20 Therapeutic Interventions Therapeutic Interventions Home Exercise Program,Joint Mobilizations,Manual Therapy, Neuromuscular Re-education, Patient/Caregiver Education, Self-Care/Home Management,Soft Tissue Mobilization, Therapeutic Activities, Therapeutic Exercises Modalities Cold Pack/Ice Massage,Electric Stimulation,Hot Packs, Ultrasound Next Visit Focus/Plan Next Note Type Treatment Note Next Visit Plan Hip flexibility, STM, strengthening
--- NOTE | 2020-10-13 16:48 | PT.OTN ---
Current Diagnoses Pain in right hip (10/13/20) Pain in left hip (10/13/20) Stiffness of left hip, not elsewhere classified (10/13/20) Sciatica, left side (10/13/20) Muscle weakness (generalized) (10/13/20) Trochanteric bursitis, left hip (10/13/20) Aftercare following joint replacement surgery (10/13/20) Physical Therapy Treatment Note PT-OP-A Visit Information Start: 10/06/20 17:33 Freq: Status: Active Protocol: Document 10/13/20 16:00 DCW (Rec: 10/13/20 16:48 DCW [id number]) Out-Patient Physical Therapy Visit Information Visit Information Visit Type Treatment Note Visit Start Time 16:00 Visit Stop Time 16:45 Total Visit Minutes 45 Visit Number 3 Number of DIRECTOR OF MARKET RESEARCH Visits 0 Evaluation Information Evaluation Date 10/06/20 PT-OP-B Current Condition Start: 10/06/20 17:33 Freq: Status: Active Protocol: Document 10/06/20 16:00 DCW (Rec: 10/07/20 09:53 DCW [id number]) Current Condition History of Current Condition Onset Date A couple of months Current Complaints left>right posterior hip pain History of Current Condition Pt is a 74 year old female presenting with a two month history of left greater than right posterior hip pain. Pt reports she has the most pain lying on her side in bed, or when she first gets up and starts walking after sitting for a while. 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 Pt feels like it is probably sciatic nerve. Prior Treatments and Tests B XOCHILT anterior approach Treatment Goals Patient/Caregiver Goals Decrease hip pain PT-OP-C Subjective Start: 10/06/20 17:33 Freq: Status: Active Protocol: Document 10/13/20 16:00 DCW (Rec: 10/13/20 16:48 DCW [id number]) OP-PT Subjective Patient Comments Patient Comments It still hurts. Notes she was pretty sore for the rest of the day following the STM during her last visit. PT-OP-F Manual Assessment Start: 10/06/20 17:33 Freq: Status: Active Protocol: Document 10/06/20 16:00 DCW (Rec: 10/07/20 09:53 DCW [id number]) Manual Assessments Soft Tissue Assessment Soft Tissue Mobility Assessment Moderate tone with tenderness to palpation 3/4: Wincing and withdraw along bilateral piriformis, left ITB, bilateral psoas PT-OP-L Special Tests Start: 10/06/20 17:33 Freq: Status: Active Protocol: Document 10/06/20 16:00 DCW (Rec: 10/07/20 09:53 DCW [id number]) Special Tests Lumbar Spine Special Tests Vertical Spine Loading Test Results Negative Straight Leg Raise Test Results Negative Slump Test Results Negative Compression Test Results Negative Hip Special Tests Piriformis Test Results Positive bilaterally ROMINA Test Results Mild c/o L hip pain PT-OP-M Strength Start: 10/06/20 17:33 Freq: Status: Active Protocol: Document 10/06/20 16:00 DCW (Rec: 10/07/20 09:53 DCW [id number]) Hip Strength Hip Manual Muscle Testing Right Flexion (L2) 4+ Good+ Abduction 4+ Good+ Adduction 4+ Good+ External Rotation 4+ Good+ Internal Rotation 4- Good- Left Flexion (L2) 4+ Good+ Abduction 4 Good Adduction 4+ Good+ External Rotation 4+ Good+ Internal Rotation 3+ Fair+ Knee Strength Knee Manual Muscle Testing Right Flexion (S2) 4+ Good+ Extension (L3) 4+ Good+ Left Flexion (S2) 4+ Good+ Extension (L3) 4+ Good+ PT-OP-Q Treatments Start: 10/06/20 17:33 Freq: Status: Active Protocol: Document 10/13/20 16:00 DCW (Rec: 10/13/20 16:48 DCW [id number]) Cardio Equipment Recumbent Elliptical (Biodex) Duration (Minutes) 5 Resistance 4 Seat Position 7 Gym Equipment Shuttle Recovery Unilateral Squats Resistance 62# Shuttle Recovery Platform Stable Bilateral Squats Resistance 112# Shuttle Recovery Platform Stable Therapeutic Exercises Supine Exercises 3 Supine Exercise Name Hamstring Stretch 2 Supine Exercise Name Bridging 1 Supine Exercise Name Piriformis stretch - knee to opposite shoulder Side left Standing Exercises 1 Standing Exercise Name Resisted IR/ER Side bilateral Resistance Lv 2 Equipment Used T-babd Comments Partial kneel on stool Other Exercises 1 Other Exercise Name Resisted side-stepping Resistance Green Manual Therapy Treatment Soft Tissue Mobilization 3 Body Location B Paraspinals Mobilization Type Strumming,Sustained Pressure, Trigger Point Release Body Position Sidelying 2 Body Location B QL Mobilization Type Strumming,Sustained Pressure, Trigger Point Release Body Position Sidelying 1 Body Location B Piriformis Mobilization Type Strumming,Sustained Pressure, Trigger Point Release Body Position Sidelying PT-OP-T Assessment and Plan Start: 10/06/20 17:33 Freq: Status: Active Protocol: Document 10/13/20 16:00 DCW (Rec: 10/13/20 16:48 DCW [id number]) Physical Therapy Assessment Impairments Impairments Functional Activities, Functional Mobility,Pain,Soft Tissue Mobility,Strength,Tone Goals Three Impairment MMT shows left IR weakness of 3+/5 [facility] Goal (LTG) Pt to exhibit at least 4/5 hip MMT in all planes to show improvement in mobility and stability of hips and spine LTG Duration 12/07/20 Two Impairment Pt has pain in hip when initiating gait following rest Ginger Farmer Goal (LTG) Pt to get up in the morning and begin walking with no increased pain on 07/31 morning over the previous week to show improve function and soft tissue tone through hip musculature LTG Duration 12/07/20 One Impairment Pt does not have an appropriate home exercise plan Short Term Goal (STG) Pt to be independent and compliant with an appropriate HEP STG Duration 11/06/20 Assessment Summary Assessment Pt doing very well, showing some improvement with hip strengthening. Physical Therapy Plan Frequency and Duration Frequency of Treatment 2x/Week Duration of Treatment Two months Plan of Care Start Date 10/06/20 Plan of Care End Date 12/07/20 Therapeutic Interventions Therapeutic Interventions Home Exercise Program,Joint Mobilizations,Manual Therapy, Neuromuscular Re-education, Patient/Caregiver Education, Self-Care/Home Management,Soft Tissue Mobilization, Therapeutic Activities, Therapeutic Exercises Modalities Cold Pack/Ice Massage,Electric Stimulation,Hot Packs, Ultrasound Next Visit Focus/Plan Next Note Type Treatment Note Next Visit Plan Hip flexibility, STM, strengthening
--- NOTE | 2020-10-15 16:44 | PT.OTN ---
Current Diagnoses Pain in right hip (10/15/20) Pain in left hip (10/15/20) Stiffness of left hip, not elsewhere classified (10/15/20) Sciatica, left side (10/15/20) Muscle weakness (generalized) (10/15/20) Trochanteric bursitis, left hip (10/15/20) Aftercare following joint replacement surgery (10/15/20) Physical Therapy Treatment Note PT-OP-A Visit Information Start: 10/06/20 17:33 Freq: Status: Active Protocol: Document 10/15/20 16:00 DCW (Rec: 10/15/20 16:43 DCW [id number]) Out-Patient Physical Therapy Visit Information Visit Information Visit Type Treatment Note Visit Start Time 16:00 Visit Stop Time 16:45 Total Visit Minutes 45 Visit Number 4 Number of TRAFFIC RECORDER Visits 0 Evaluation Information Evaluation Date 10/06/20 PT-OP-B Current Condition Start: 10/06/20 17:33 Freq: Status: Active Protocol: Document 10/06/20 16:00 DCW (Rec: 10/07/20 09:53 DCW [id number]) Current Condition History of Current Condition Onset Date A couple of months Current Complaints left>right posterior hip pain History of Current Condition Pt is a 74 year old female presenting with a two month history of left greater than right posterior hip pain. Pt reports she has the most pain lying on her side in bed, or when she first gets up and starts walking after sitting for a while. 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 Pt feels like it is probably sciatic nerve. Prior Treatments and Tests B XOCHILT anterior approach Treatment Goals Patient/Caregiver Goals Decrease hip pain PT-OP-C Subjective Start: 10/06/20 17:33 Freq: Status: Active Protocol: Document 10/15/20 16:00 DCW (Rec: 10/15/20 16:43 DCW [id number]) OP-PT Subjective Patient Comments Patient Comments I'm feeling pretty good today . PT-OP-F Manual Assessment Start: 10/06/20 17:33 Freq: Status: Active Protocol: Document 10/06/20 16:00 DCW (Rec: 10/07/20 09:53 DCW [id number]) Manual Assessments Soft Tissue Assessment Soft Tissue Mobility Assessment Moderate tone with tenderness to palpation 3/4: Wincing and withdraw along bilateral piriformis, left ITB, bilateral psoas PT-OP-L Special Tests Start: 10/06/20 17:33 Freq: Status: Active Protocol: Document 10/06/20 16:00 DCW (Rec: 10/07/20 09:53 DCW [id number]) Special Tests Lumbar Spine Special Tests Vertical Spine Loading Test Results Negative Straight Leg Raise Test Results Negative Slump Test Results Negative Compression Test Results Negative Hip Special Tests Piriformis Test Results Positive bilaterally ROMINA Test Results Mild c/o L hip pain PT-OP-M Strength Start: 10/06/20 17:33 Freq: Status: Active Protocol: Document 10/06/20 16:00 DCW (Rec: 10/07/20 09:53 DCW [id number]) Hip Strength Hip Manual Muscle Testing Right Flexion (L2) 4+ Good+ Abduction 4+ Good+ Adduction 4+ Good+ External Rotation 4+ Good+ Internal Rotation 4- Good- Left Flexion (L2) 4+ Good+ Abduction 4 Good Adduction 4+ Good+ External Rotation 4+ Good+ Internal Rotation 3+ Fair+ Knee Strength Knee Manual Muscle Testing Right Flexion (S2) 4+ Good+ Extension (L3) 4+ Good+ Left Flexion (S2) 4+ Good+ Extension (L3) 4+ Good+ PT-OP-Q Treatments Start: 10/06/20 17:33 Freq: Status: Active Protocol: Document 10/15/20 16:00 DCW (Rec: 10/15/20 16:43 DCW [id number]) Cardio Equipment Recumbent Elliptical (BiodMesitis) Duration (Minutes) 5 Resistance 4 Seat Position 7 Gym Equipment Shuttle Recovery Unilateral Squats Resistance 62# Shuttle Recovery Platform Stable Bilateral Squats Resistance 112# Shuttle Recovery Platform Stable Therapeutic Exercises Supine Exercises 3 Supine Exercise Name Hamstring Stretch 1 Supine Exercise Name Piriformis stretch - knee to opposite shoulder Side left Standing Exercises 1 Standing Exercise Name Resisted IR/ER Side bilateral Resistance Lv 2 Equipment Used T-babd Comments Partial kneel on stool Other Exercises 1 Other Exercise Name Resisted side-stepping Resistance Green Manual Therapy Treatment Soft Tissue Mobilization 3 Body Location B Paraspinals Mobilization Type Strumming,Sustained Pressure, Trigger Point Release Body Position Sidelying 2 Body Location B QL Mobilization Type Strumming,Sustained Pressure, Trigger Point Release Body Position Sidelying 1 Body Location B Piriformis Mobilization Type Strumming,Sustained Pressure, Trigger Point Release Body Position Sidelying PT-OP-T Assessment and Plan Start: 10/06/20 17:33 Freq: Status: Active Protocol: Document 10/15/20 16:00 DCW (Rec: 10/15/20 16:43 DCW [id number]) Physical Therapy Assessment Impairments Impairments Functional Activities, Functional Mobility,Pain,Soft Tissue Mobility,Strength,Tone Goals Three Impairment MMT shows left IR weakness of 3+/5 [facility] Goal (LTG) Pt to exhibit at least 4/5 hip MMT in all planes to show improvement in mobility and stability of hips and spine LTG Duration 12/07/20 Two Impairment Pt has pain in hip when initiating gait following rest Radiocommunications Technician Goal (LTG) Pt to get up in the morning and begin walking with no increased pain on 5/ morning over the previous week to show improve function and soft tissue tone through hip musculature LTG Duration 12/07/20 One Impairment Pt does not have an appropriate home exercise plan Short Term Goal (STG) Pt to be independent and compliant with an appropriate HEP STG Duration 11/06/20 Assessment Summary Assessment Pt tolerating STM better today , showing improvement with mobility. Physical Therapy Plan Frequency and Duration Frequency of Treatment 2x/Week Duration of Treatment Two months Plan of Care Start Date 10/06/20 Plan of Care End Date 12/07/20 Therapeutic Interventions Therapeutic Interventions Home Exercise Program,Joint Mobilizations,Manual Therapy, Neuromuscular Re-education, Patient/Caregiver Education, Self-Care/Home Management,Soft Tissue Mobilization, Therapeutic Activities, Therapeutic Exercises Modalities Cold Pack/Ice Massage,Electric Stimulation,Hot Packs, Ultrasound Next Visit Focus/Plan Next Note Type Treatment Note Next Visit Plan Hip flexibility, STM, strengthening
--- NOTE | 2020-10-21 17:34 | PT.OTN ---
Current Diagnoses Pain in right hip (10/21/20) Pain in left hip (10/21/20) Stiffness of left hip, not elsewhere classified (10/21/20) Sciatica, left side (10/21/20) Muscle weakness (generalized) (10/21/20) Trochanteric bursitis, left hip (10/21/20) Aftercare following joint replacement surgery (10/21/20) Physical Therapy Treatment Note PT-OP-A Visit Information Start: 10/06/20 17:33 Freq: Status: Active Protocol: Document 10/21/20 16:45 DCW (Rec: 10/21/20 17:34 DCW [id number]) Out-Patient Physical Therapy Visit Information Visit Information Visit Type Treatment Note Visit Start Time 16:45 Visit Stop Time 17:30 Total Visit Minutes 45 Visit Number 5 Number of BIOTECH PRODUCTION SPECIALIST Visits 0 Evaluation Information Evaluation Date 10/06/20 PT-OP-B Current Condition Start: 10/06/20 17:33 Freq: Status: Active Protocol: Document 10/06/20 16:00 DCW (Rec: 10/07/20 09:53 DCW [id number]) Current Condition History of Current Condition Onset Date A couple of months Current Complaints left>right posterior hip pain History of Current Condition Pt is a 74 year old female presenting with a two month history of left greater than right posterior hip pain. Pt reports she has the most pain lying on her side in bed, or when she first gets up and starts walking after sitting for a while. 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 Pt feels like it is probably sciatic nerve. Prior Treatments and Tests B XOCHILT anterior approach Treatment Goals Patient/Caregiver Goals Decrease hip pain PT-OP-C Subjective Start: 10/06/20 17:33 Freq: Status: Active Protocol: Document 10/21/20 16:45 DCW (Rec: 10/21/20 17:34 DCW [id number]) OP-PT Subjective Patient Comments Patient Comments Pt has been busy with a friend visiting from out of town this past week. Notes her leg has been feeling good, but was sore Monday night after standing for an extended time leading latter-day. PT-OP-F Manual Assessment Start: 10/06/20 17:33 Freq: Status: Active Protocol: Document 10/06/20 16:00 DCW (Rec: 10/07/20 09:53 DCW [id number]) Manual Assessments Soft Tissue Assessment Soft Tissue Mobility Assessment Moderate tone with tenderness to palpation 3/4: Wincing and withdraw along bilateral piriformis, left ITB, bilateral psoas PT-OP-L Special Tests Start: 10/06/20 17:33 Freq: Status: Active Protocol: Document 10/06/20 16:00 DCW (Rec: 10/07/20 09:53 DCW [id number]) Special Tests Lumbar Spine Special Tests Vertical Spine Loading Test Results Negative Straight Leg Raise Test Results Negative Slump Test Results Negative Compression Test Results Negative Hip Special Tests Piriformis Test Results Positive bilaterally ROMINA Test Results Mild c/o L hip pain PT-OP-M Strength Start: 10/06/20 17:33 Freq: Status: Active Protocol: Document 10/06/20 16:00 DCW (Rec: 10/07/20 09:53 DCW [id number]) Hip Strength Hip Manual Muscle Testing Right Flexion (L2) 4+ Good+ Abduction 4+ Good+ Adduction 4+ Good+ External Rotation 4+ Good+ Internal Rotation 4- Good- Left Flexion (L2) 4+ Good+ Abduction 4 Good Adduction 4+ Good+ External Rotation 4+ Good+ Internal Rotation 3+ Fair+ Knee Strength Knee Manual Muscle Testing Right Flexion (S2) 4+ Good+ Extension (L3) 4+ Good+ Left Flexion (S2) 4+ Good+ Extension (L3) 4+ Good+ PT-OP-Q Treatments Start: 10/06/20 17:33 Freq: Status: Active Protocol: Document 10/21/20 16:45 DCW (Rec: 10/21/20 17:34 DCW [id number]) Cardio Equipment Recumbent Elliptical (Biodex) Duration (Minutes) 5 Resistance 4 Seat Position 6 Gym Equipment Shuttle Recovery Unilateral Squats Resistance 62# Shuttle Recovery Platform Stable Bilateral Squats Resistance 112# Shuttle Recovery Platform Stable Therapeutic Exercises Supine Exercises 3 Supine Exercise Name Hamstring Stretch 1 Supine Exercise Name Piriformis stretch - knee to opposite shoulder Side left Standing Exercises 1 Standing Exercise Name Resisted IR/ER Side bilateral Resistance Lv 2 Equipment Used T-babd Comments Partial kneel on stool Other Exercises 1 Other Exercise Name Resisted side-stepping Resistance Green Manual Therapy Treatment Soft Tissue Mobilization 3 Body Location B Paraspinals Mobilization Type Strumming,Sustained Pressure, Trigger Point Release Body Position Sidelying 2 Body Location B QL Mobilization Type Strumming,Sustained Pressure, Trigger Point Release Body Position Sidelying 1 Body Location B Piriformis Mobilization Type Strumming,Sustained Pressure, Trigger Point Release Body Position Sidelying PT-OP-T Assessment and Plan Start: 10/06/20 17:33 Freq: Status: Active Protocol: Document 10/21/20 16:45 DCW (Rec: 10/21/20 17:34 DCW [id number]) Physical Therapy Assessment Impairments Impairments Functional Activities, Functional Mobility,Pain,Soft Tissue Mobility,Strength,Tone Goals Three Impairment MMT shows left IR weakness of 3+/5 Halal Butcher Goal (LTG) Pt to exhibit at least 4/5 hip MMT in all planes to show improvement in mobility and stability of hips and spine LTG Duration 12/07/20 Two Impairment Pt has pain in hip when initiating gait following rest Halal Butcher Goal (LTG) Pt to get up in the morning and begin walking with no increased pain on 07/31 morning over the previous week to show improve function and soft tissue tone through hip musculature LTG Duration 12/07/20 One Impairment Pt does not have an appropriate home exercise plan Short Term Goal (STG) Pt to be independent and compliant with an appropriate HEP STG Duration 11/06/20 Assessment Summary Assessment Pt having noticeable improvement in overall muscle tone and standing tolerance at work. Physical Therapy Plan Frequency and Duration Frequency of Treatment 2x/Week Duration of Treatment Two months Plan of Care Start Date 10/06/20 Plan of Care End Date 12/07/20 Therapeutic Interventions Therapeutic Interventions Home Exercise Program,Joint Mobilizations,Manual Therapy, Neuromuscular Re-education, Patient/Caregiver Education, Self-Care/Home Management,Soft Tissue Mobilization, Therapeutic Activities, Therapeutic Exercises Modalities Cold Pack/Ice Massage,Electric Stimulation,Hot Packs, Ultrasound Next Visit Focus/Plan Next Note Type Treatment Note Next Visit Plan Hip flexibility, STM, strengthening
--- NOTE | 2020-10-26 15:18 | PT.OTN ---
Current Diagnoses Pain in right hip (10/26/20) Pain in left hip (10/26/20) Stiffness of left hip, not elsewhere classified (10/26/20) Sciatica, left side (10/26/20) Muscle weakness (generalized) (10/26/20) Trochanteric bursitis, left hip (10/26/20) Aftercare following joint replacement surgery (10/26/20) Physical Therapy Treatment Note PT-OP-A Visit Information Start: 10/06/20 17:33 Freq: Status: Active Protocol: Document 10/26/20 14:31 SP (Rec: 10/26/20 15:46 SP [id number]) Out-Patient Physical Therapy Visit Information Visit Information Visit Type Treatment Note Visit Start Time 14:31 Visit Stop Time 15:18 Total Visit Minutes 47 Visit Number 6 Number of STRAWHAT BLOCKING OPERATOR Visits 1 Evaluation Information Evaluation Date 10/06/20 PT-OP-B Current Condition Start: 10/06/20 17:33 Freq: Status: Active Protocol: Document 10/06/20 16:00 DCW (Rec: 10/07/20 09:53 DCW [id number]) Current Condition History of Current Condition Onset Date A couple of months Current Complaints left>right posterior hip pain History of Current Condition Pt is a 74 year old female presenting with a two month history of left greater than right posterior hip pain. Pt reports she has the most pain lying on her side in bed, or when she first gets up and starts walking after sitting for a while. 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 Pt feels like it is probably sciatic nerve. Prior Treatments and Tests B XOCHILT anterior approach Treatment Goals Patient/Caregiver Goals Decrease hip pain PT-OP-C Subjective Start: 10/06/20 17:33 Freq: Status: Active Protocol: Document 10/26/20 14:31 SP (Rec: 10/26/20 15:46 SP [id number]) OP-PT Subjective Patient Comments Patient Comments Pt states L hips starts hurting with extended standing and when comes up to standing but improves once walking. PT-OP-F Manual Assessment Start: 10/06/20 17:33 Freq: Status: Active Protocol: Document 10/06/20 16:00 DCW (Rec: 10/07/20 09:53 DCW [id number]) Manual Assessments Soft Tissue Assessment Soft Tissue Mobility Assessment Moderate tone with tenderness to palpation 3/4: Wincing and withdraw along bilateral piriformis, left ITB, bilateral psoas PT-OP-L Special Tests Start: 10/06/20 17:33 Freq: Status: Active Protocol: Document 10/06/20 16:00 DCW (Rec: 10/07/20 09:53 DCW [id number]) Special Tests Lumbar Spine Special Tests Vertical Spine Loading Test Results Negative Straight Leg Raise Test Results Negative Slump Test Results Negative Compression Test Results Negative Hip Special Tests Piriformis Test Results Positive bilaterally ROMINA Test Results Mild c/o L hip pain PT-OP-M Strength Start: 10/06/20 17:33 Freq: Status: Active Protocol: Document 10/06/20 16:00 DCW (Rec: 10/07/20 09:53 DC [id number]) Hip Strength Hip Manual Muscle Testing Right Flexion (L2) 4+ Good+ Abduction 4+ Good+ Adduction 4+ Good+ External Rotation 4+ Good+ Internal Rotation 4- Good- Left Flexion (L2) 4+ Good+ Abduction 4 Good Adduction 4+ Good+ External Rotation 4+ Good+ Internal Rotation 3+ Fair+ Knee Strength Knee Manual Muscle Testing Right Flexion (S2) 4+ Good+ Extension (L3) 4+ Good+ Left Flexion (S2) 4+ Good+ Extension (L3) 4+ Good+ PT-OP-Q Treatments Start: 10/06/20 17:33 Freq: Status: Active Protocol: Document 10/26/20 14:31 SP (Rec: 10/26/20 15:46 SP [id number]) Gym Equipment Shuttle Recovery Unilateral Squats Details good knee alignment Resistance 62# Shuttle Recovery Platform Stable Reps/Time 2x15 Bilateral Squats Details good slow pace control, cued B knee alignment //feet see insoles Resistance 112# Shuttle Recovery Platform Stable Reps/Time 2x15 Sport Cord green Exercise Details 1.F/B/Side stepping Reps/Duration 5 reps each direction full distance tolerate Comments 2.Then F/B/Side stepping over /back 1 elizabeth. Cued slow small controlled eccentric against resistance steps, level pelvis and foot clearance. Therapeutic Exercises Sitting Exercises self STMs Sitting Exercise Name self rolling ITB> HS, quad, calf; pincer kneed MWM AP achilles Side left Equipment Used rolling pin, fingers foot over opposite knee Reps/Minutes 4 min Comments ed and review self rolling, rocking, sustained pressure w/ MWM - good resp. Standing Exercises 1 Standing Exercise Name Resisted IR/ER Side bilateral Resistance TB Lv 2 Equipment Used contact rail, Partial kneel on stool Reps/Minutes 2x10 each direction Comments cued core fac w/ improvement in trunk decreased rotation stabilization Other Exercises 1 Other Exercise Name Resisted fwd, bwd, side- stepping Resistance G Tb loop> #3 loop Equipment Used contact rail as needed Reps/Minutes 2 laps each Comments cued posture stationary, decreased wt shift side bend PT-OP-T Assessment and Plan Start: 10/06/20 17:33 Freq: Status: Active Protocol: Document 10/26/20 14:31 SP (Rec: 10/26/20 15:46 SP [id number]) Physical Therapy Assessment Goals Three Impairment MMT shows left IR weakness of 3+/5 Cocktail Server Goal (LTG) Pt to exhibit at least 4/5 hip MMT in all planes to show improvement in mobility and stability of hips and spine LTG Duration 12/07/20 Two Impairment Pt has pain in hip when initiating gait following rest Cocktail Server Goal (LTG) Pt to get up in the morning and begin walking with no increased pain on 07/31 morning over the previous week to show improve function and soft tissue tone through hip musculature LTG Duration 12/07/20 One Impairment Pt does not have an appropriate home exercise plan Short Term Goal (STG) Pt to be independent and compliant with an appropriate HEP STG Duration 11/06/20 Assessment Summary Assessment Pt responded well to self STMs using rolling stick and or racquetball at wall for L pirformis, ITB, calf and achilles and seemed more confident to continue properly at home post ed and review. Pt was able to tolerate increased resistance and initiated sport cord core and hip strengthening with balance wt shift self correction. Physical Therapy Plan Frequency and Duration Frequency of Treatment 2x/Week Duration of Treatment Two months Plan of Care Start Date 10/06/20 Plan of Care End Date 12/07/20 Therapeutic Interventions Therapeutic Interventions Home Exercise Program,Joint Mobilizations,Manual Therapy, Neuromuscular Re-education, Patient/Caregiver Education, Self-Care/Home Management,Soft Tissue Mobilization, Therapeutic Activities, Therapeutic Exercises Modalities Cold Pack/Ice Massage,Electric Stimulation,Hot Packs, Ultrasound Next Visit Focus/Plan Next Note Type Treatment Note Next Visit Plan Assess response to sport cord, increased #3 TB loop with band walk last tx. Continue per POC: Hip flexibility, STM, strengthening
--- NOTE | 2020-10-29 17:34 | PT.OTN ---
Current Diagnoses Pain in right hip (10/29/20) Pain in left hip (10/29/20) Stiffness of left hip, not elsewhere classified (10/29/20) Sciatica, left side (10/29/20) Muscle weakness (generalized) (10/29/20) Trochanteric bursitis, left hip (10/29/20) Aftercare following joint replacement surgery (10/29/20) Physical Therapy Treatment Note PT-OP-A Visit Information Start: 10/06/20 17:33 Freq: Status: Active Protocol: Document 10/29/20 16:45 DCW (Rec: 10/29/20 17:33 DCW [id number]) Out-Patient Physical Therapy Visit Information Visit Information Visit Type Treatment Note Visit Start Time 16:45 Visit Stop Time 17:30 Total Visit Minutes 45 Visit Number 7 Number of DECORATING EQUIPMENT SETTER Visits 0 Evaluation Information Evaluation Date 10/06/20 PT-OP-B Current Condition Start: 10/06/20 17:33 Freq: Status: Active Protocol: Document 10/06/20 16:00 DCW (Rec: 10/07/20 09:53 DCW [id number]) Current Condition History of Current Condition Onset Date A couple of months Current Complaints left>right posterior hip pain History of Current Condition Pt is a 74 year old female presenting with a two month history of left greater than right posterior hip pain. Pt reports she has the most pain lying on her side in bed, or when she first gets up and starts walking after sitting for a while. 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 Pt feels like it is probably sciatic nerve. Prior Treatments and Tests B XOCHILT anterior approach Treatment Goals Patient/Caregiver Goals Decrease hip pain PT-OP-C Subjective Start: 10/06/20 17:33 Freq: Status: Active Protocol: Document 10/29/20 16:45 DCW (Rec: 10/29/20 17:33 DCW [id number]) OP-PT Subjective Patient Comments Patient Comments I think it's better, but it's not perfect yet, obviously. It was still pretty uncomfortable after work Monday morning. PT-OP-F Manual Assessment Start: 10/06/20 17:33 Freq: Status: Active Protocol: Document 10/06/20 16:00 DCW (Rec: 10/07/20 09:53 DC [id number]) Manual Assessments Soft Tissue Assessment Soft Tissue Mobility Assessment Moderate tone with tenderness to palpation 3/4: Wincing and withdraw along bilateral piriformis, left ITB, bilateral psoas PT-OP-L Special Tests Start: 10/06/20 17:33 Freq: Status: Active Protocol: Document 10/06/20 16:00 DCW (Rec: 10/07/20 09:53 [facility] [id number]) Special Tests Lumbar Spine Special Tests Vertical Spine Loading Test Results Negative Straight Leg Raise Test Results Negative Slump Test Results Negative Compression Test Results Negative Hip Special Tests Piriformis Test Results Positive bilaterally ROMINA Test Results Mild c/o L hip pain PT-OP-M Strength Start: 10/06/20 17:33 Freq: Status: Active Protocol: Document 10/06/20 16:00 DCW (Rec: 10/07/20 09:53 [facility] [id number]) Hip Strength Hip Manual Muscle Testing Right Flexion (L2) 4+ Good+ Abduction 4+ Good+ Adduction 4+ Good+ External Rotation 4+ Good+ Internal Rotation 4- Good- Left Flexion (L2) 4+ Good+ Abduction 4 Good Adduction 4+ Good+ External Rotation 4+ Good+ Internal Rotation 3+ Fair+ Knee Strength Knee Manual Muscle Testing Right Flexion (S2) 4+ Good+ Extension (L3) 4+ Good+ Left Flexion (S2) 4+ Good+ Extension (L3) 4+ Good+ PT-OP-Q Treatments Start: 10/06/20 17:33 Freq: Status: Active Protocol: Document 10/29/20 16:45 DCW (Rec: 10/29/20 17:33 DCW [id number]) Cardio Equipment Recumbent Elliptical ([employer]ure) Duration (Minutes) 5 Resistance 4 Seat Position 6 Gym Equipment Shuttle Recovery Unilateral Squats Resistance 62# Shuttle Recovery Platform Stable Bilateral Squats Resistance 112# Shuttle Recovery Platform Stable Therapeutic Exercises Sidelying Exercises 2 Sidelying Exercise Name 6-way Clamshell Side bilateral Reps/Minutes x15 Standing Exercises 2 Standing Exercise Name Hip Extension Side bilateral Resistance Green Equipment Used T-band 1 Standing Exercise Name Resisted IR/ER Side bilateral Resistance Lv 2 Equipment Used T-band Comments Partial kneel on stool Other Exercises 1 Other Exercise Name Resisted fwd, bwd, side- stepping Resistance Green Equipment Used T-band Reps/Minutes 2 laps each Manual Therapy Treatment Soft Tissue Mobilization 3 Body Location B Paraspinals Mobilization Type Strumming,Sustained Pressure, Trigger Point Release Body Position Sidelying 2 Body Location B QL Mobilization Type Strumming,Sustained Pressure, Trigger Point Release Body Position Sidelying 1 Body Location B Piriformis Mobilization Type Strumming,Sustained Pressure, Trigger Point Release Body Position Sidelying PT-OP-T Assessment and Plan Start: 10/06/20 17:33 Freq: Status: Active Protocol: Document 10/29/20 16:45 DCW (Rec: 10/29/20 17:33 DCW [id number]) Physical Therapy Assessment Impairments Impairments Functional Activities, Functional Mobility,Pain,Soft Tissue Mobility,Strength,Tone Goals Three Impairment MMT shows left IR weakness of 3+/5 Clark Driver Goal (LTG) Pt to exhibit at least 4/5 hip MMT in all planes to show improvement in mobility and stability of hips and spine LTG Duration 12/07/20 Two Impairment Pt has pain in hip when initiating gait following rest Clark Driver Goal (LTG) Pt to get up in the morning and begin walking with no increased pain on / morning over the previous week to show improve function and soft tissue tone through hip musculature LTG Duration 12/07/20 One Impairment Pt does not have an appropriate home exercise plan Short Term Goal (STG) Pt to be independent and compliant with an appropriate HEP STG Duration 11/06/20 Assessment Summary Assessment Pt feeling better overall, less overall tenderness and discomfort day-to-day. Physical Therapy Plan Frequency and Duration Frequency of Treatment 2x/Week Duration of Treatment Two months Plan of Care Start Date 10/06/20 Plan of Care End Date 12/07/20 Therapeutic Interventions Therapeutic Interventions Home Exercise Program,Joint Mobilizations,Manual Therapy, Neuromuscular Re-education, Patient/Caregiver Education, Self-Care/Home Management,Soft Tissue Mobilization, Therapeutic Activities, Therapeutic Exercises Modalities Cold Pack/Ice Massage,Electric Stimulation,Hot Packs, Ultrasound Next Visit Focus/Plan Next Note Type Treatment Note Next Visit Plan Continue per POC: Hip flexibility, STM, strengthening
--- NOTE | 2020-11-03 17:38 | PT.OTN ---
Current Diagnoses Pain in right hip (11/03/20) Pain in left hip (11/03/20) Stiffness of left hip, not elsewhere classified (11/03/20) Sciatica, left side (11/03/20) Muscle weakness (generalized) (11/03/20) Trochanteric bursitis, left hip (11/03/20) Aftercare following joint replacement surgery (11/03/20) Physical Therapy Treatment Note PT-OP-A Visit Information Start: 10/06/20 17:33 Freq: Status: Active Protocol: Document 11/03/20 16:45 DCW (Rec: 11/03/20 17:38 DCW [id number]) Out-Patient Physical Therapy Visit Information Visit Information Visit Type Treatment Note Visit Start Time 16:45 Visit Stop Time 17:30 Total Visit Minutes 45 Visit Number 8 Number of PARKING METER COLLECTOR Visits 0 Evaluation Information Evaluation Date 10/06/20 PT-OP-B Current Condition Start: 10/06/20 17:33 Freq: Status: Active Protocol: Document 10/06/20 16:00 DCW (Rec: 10/07/20 09:53 DCW [id number]) Current Condition History of Current Condition Onset Date A couple of months Current Complaints left>right posterior hip pain History of Current Condition Pt is a 74 year old female presenting with a two month history of left greater than right posterior hip pain. Pt reports she has the most pain lying on her side in bed, or when she first gets up and starts walking after sitting for a while. 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 Pt feels like it is probably sciatic nerve. Prior Treatments and Tests B XOCHILT anterior approach Treatment Goals Patient/Caregiver Goals Decrease hip pain PT-OP-C Subjective Start: 10/06/20 17:33 Freq: Status: Active Protocol: Document 11/03/20 16:45 DCW (Rec: 11/03/20 17:38 DCW [id number]) OP-PT Subjective Patient Comments Patient Comments Pt's left hip bothering her more today, notes it started out walking her dog. PT-OP-F Manual Assessment Start: 10/06/20 17:33 Freq: Status: Active Protocol: Document 10/06/20 16:00 DCW (Rec: 10/07/20 09:53 DCW [id number]) Manual Assessments Soft Tissue Assessment Soft Tissue Mobility Assessment Moderate tone with tenderness to palpation 3/4: Wincing and withdraw along bilateral piriformis, left ITB, bilateral psoas PT-OP-L Special Tests Start: 10/06/20 17:33 Freq: Status: Active Protocol: Document 10/06/20 16:00 DCW (Rec: 10/07/20 09:53 DCW [id number]) Special Tests Lumbar Spine Special Tests Vertical Spine Loading Test Results Negative Straight Leg Raise Test Results Negative Slump Test Results Negative Compression Test Results Negative Hip Special Tests Piriformis Test Results Positive bilaterally ROMINA Test Results Mild c/o L hip pain PT-OP-M Strength Start: 10/06/20 17:33 Freq: Status: Active Protocol: Document 10/06/20 16:00 DCW (Rec: 10/07/20 09:53 [facility] [id number]) Hip Strength Hip Manual Muscle Testing Right Flexion (L2) 4+ Good+ Abduction 4+ Good+ Adduction 4+ Good+ External Rotation 4+ Good+ Internal Rotation 4- Good- Left Flexion (L2) 4+ Good+ Abduction 4 Good Adduction 4+ Good+ External Rotation 4+ Good+ Internal Rotation 3+ Fair+ Knee Strength Knee Manual Muscle Testing Right Flexion (S2) 4+ Good+ Extension (L3) 4+ Good+ Left Flexion (S2) 4+ Good+ Extension (L3) 4+ Good+ PT-OP-Q Treatments Start: 10/06/20 17:33 Freq: Status: Active Protocol: Document 11/03/20 16:45 DCW (Rec: 11/03/20 17:38 DCW [id number]) Cardio Equipment Recumbent Elliptical (Biodex) Duration (Minutes) 5 Resistance 4 Seat Position 7 Gym Equipment Shuttle Recovery Unilateral Squats Resistance 62# Shuttle Recovery Platform Stable Bilateral Squats Resistance 112# Shuttle Recovery Platform Stable Manual Therapy Treatment Soft Tissue Mobilization 4 Body Location B ITB Mobilization Type Strumming,Sustained Pressure Body Position Sidelying 3 Body Location B Paraspinals Mobilization Type Strumming,Sustained Pressure, Trigger Point Release Body Position Sidelying 2 Body Location B QL Mobilization Type Strumming,Sustained Pressure, Trigger Point Release Body Position Sidelying 1 Body Location B Piriformis Mobilization Type Strumming,Sustained Pressure, Trigger Point Release Body Position Sidelying PT-OP-T Assessment and Plan Start: 10/06/20 17:33 Freq: Status: Active Protocol: Document 11/03/20 16:45 DCW (Rec: 11/03/20 17:38 DCW [id number]) Physical Therapy Assessment Impairments Impairments Functional Activities, Functional Mobility,Pain,Soft Tissue Mobility,Strength,Tone Goals Three Impairment MMT shows left IR weakness of 3+/5 Preschool Teacher Assistant Goal (LTG) Pt to exhibit at least 4/5 hip MMT in all planes to show improvement in mobility and stability of hips and spine LTG Duration 12/07/20 Two Impairment Pt has pain in hip when initiating gait following rest Preschool Teacher Assistant Goal (LTG) Pt to get up in the morning and begin walking with no increased pain on 07/31 morning over the previous week to show improve function and soft tissue tone through hip musculature LTG Duration 12/07/20 One Impairment Pt does not have an appropriate home exercise plan Short Term Goal (STG) Pt to be independent and compliant with an appropriate HEP STG Duration 11/06/20 Assessment Summary Assessment Spent more time today with STM due to pt's increased pain and tightness along L ITB. Notes improvement upon leaving clinic. Physical Therapy Plan Frequency and Duration Frequency of Treatment 2x/Week Duration of Treatment Two months Plan of Care Start Date 10/06/20 Plan of Care End Date 12/07/20 Therapeutic Interventions Therapeutic Interventions Home Exercise Program,Joint Mobilizations,Manual Therapy, Neuromuscular Re-education, Patient/Caregiver Education, Self-Care/Home Management,Soft Tissue Mobilization, Therapeutic Activities, Therapeutic Exercises Modalities Cold Pack/Ice Massage,Electric Stimulation,Hot Packs, Ultrasound Next Visit Focus/Plan Next Note Type Treatment Note Next Visit Plan Continue per POC: Hip flexibility, STM, strengthening
--- NOTE | 2020-11-06 15:20 | PT.OTN ---
Current Diagnoses Pain in right hip (11/06/20) Pain in left hip (11/06/20) Stiffness of left hip, not elsewhere classified (11/06/20) Sciatica, left side (11/06/20) Muscle weakness (generalized) (11/06/20) Trochanteric bursitis, left hip (11/06/20) Aftercare following joint replacement surgery (11/06/20) Physical Therapy Treatment Note PT-OP-A Visit Information Start: 10/06/20 17:33 Freq: Status: Active Protocol: Document 11/06/20 14:36 SP (Rec: 11/06/20 15:31 SP [id number]) Out-Patient Physical Therapy Visit Information Visit Information Visit Type Treatment Note Visit Start Time 14:36 Visit Stop Time 15:20 Total Visit Minutes 44 Visit Number 9 Number of CERTIFIED REGISTERED LOCKSMITH Visits 1 Evaluation Information Evaluation Date 10/06/20 PT-OP-B Current Condition Start: 10/06/20 17:33 Freq: Status: Active Protocol: Document 10/06/20 16:00 DCW (Rec: 10/07/20 09:53 DCW [id number]) Current Condition History of Current Condition Onset Date A couple of months Current Complaints left>right posterior hip pain History of Current Condition Pt is a 74 year old female presenting with a two month history of left greater than right posterior hip pain. Pt reports she has the most pain lying on her side in bed, or when she first gets up and starts walking after sitting for a while. 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 Pt feels like it is probably sciatic nerve. Prior Treatments and Tests B XOCHILT anterior approach Treatment Goals Patient/Caregiver Goals Decrease hip pain PT-OP-C Subjective Start: 10/06/20 17:33 Freq: Status: Active Protocol: Document 11/06/20 14:36 SP (Rec: 11/06/20 15:31 SP [id number]) OP-PT Subjective Patient Comments Patient Comments Pt stated the manual work helped after last tx, but short lived until next day. Saw new chiropractor yesterday and worked on her neck, low back, stated hips amazing level but maybe scoliosis. Patient Reported Progress Same PT-OP-F Manual Assessment Start: 10/06/20 17:33 Freq: Status: Active Protocol: Document 10/06/20 16:00 DCW (Rec: 10/07/20 09:53 DCW [id number]) Manual Assessments Soft Tissue Assessment Soft Tissue Mobility Assessment Moderate tone with tenderness to palpation 3/4: Wincing and withdraw along bilateral piriformis, left ITB, bilateral psoas PT-OP-L Special Tests Start: 10/06/20 17:33 Freq: Status: Active Protocol: Document 10/06/20 16:00 DCW (Rec: 10/07/20 09:53 DCW [id number]) Special Tests Lumbar Spine Special Tests Vertical Spine Loading Test Results Negative Straight Leg Raise Test Results Negative Slump Test Results Negative Compression Test Results Negative Hip Special Tests Piriformis Test Results Positive bilaterally ROMINA Test Results Mild c/o L hip pain PT-OP-M Strength Start: 10/06/20 17:33 Freq: Status: Active Protocol: Document 10/06/20 16:00 DCW (Rec: 10/07/20 09:53 DCW [id number]) Hip Strength Hip Manual Muscle Testing Right Flexion (L2) 4+ Good+ Abduction 4+ Good+ Adduction 4+ Good+ External Rotation 4+ Good+ Internal Rotation 4- Good- Left Flexion (L2) 4+ Good+ Abduction 4 Good Adduction 4+ Good+ External Rotation 4+ Good+ Internal Rotation 3+ Fair+ Knee Strength Knee Manual Muscle Testing Right Flexion (S2) 4+ Good+ Extension (L3) 4+ Good+ Left Flexion (S2) 4+ Good+ Extension (L3) 4+ Good+ PT-OP-Q Treatments Start: 10/06/20 17:33 Freq: Status: Active Protocol: Document 11/06/20 14:36 SP (Rec: 11/06/20 15:31 SP [id number]) Gym Equipment Shuttle Recovery Unilateral Squats Details cued knee alignment Resistance 62# Shuttle Recovery Platform Stable Reps/Time 2x15 Bilateral Squats Details cued knee alignment Resistance 112# Shuttle Recovery Platform Stable Reps/Time x20 Therapeutic Exercises Supine Exercises 3 Supine Exercise Name Hamstring Stretch Side bilateral Equipment Used grasp behind thigh Reps/Minutes 30 Comments w/ ankle pump- good stretch response 1 Supine Exercise Name Piriformis stretch - knee to opposite shoulder Side bilateral Reps/Minutes 30 x2 Standing Exercises stationary lunges Side bilateral Equipment Used table contact, pillow Reps/Minutes x5 reps each side Comments good hip/ glut fac, little hip discomfort but mostly tiring 2 Standing Exercise Name Hip Extension Side bilateral Resistance Green Equipment Used T-band Reps/Minutes x10 Comments good feedback response, glut fac Other Exercises 1 Other Exercise Name Resisted fwd, bwd, side- stepping Resistance Green TB Equipment Used no contact rails today Reps/Minutes 2 laps each Comments good form Manual Therapy Treatment Soft Tissue Mobilization 4 Body Location B ITB Mobilization Type Strumming,Sustained Pressure Body Position Prone 3 Body Location B Paraspinals Mobilization Type Strumming,Sustained Pressure, Trigger Point Release Body Position Prone 2 Body Location B QL Mobilization Type Strumming,Sustained Pressure, Trigger Point Release Body Position Prone 1 Body Location B Piriformis Mobilization Type Strumming,Sustained Pressure, Trigger Point Release Body Position Prone Comments Instructed self using ball on wall- good response. PT-OP-T Assessment and Plan Start: 10/06/20 17:33 Freq: Status: Active Protocol: Document 11/06/20 14:36 SP (Rec: 11/06/20 15:31 SP [id number]) Physical Therapy Assessment Goals Three Impairment MMT shows left IR weakness of 3+/5 Care Home Goal (LTG) Pt to exhibit at least 4/5 hip MMT in all planes to show improvement in mobility and stability of hips and spine LTG Duration 12/07/20 Two Impairment Pt has pain in hip when initiating gait following rest Care Home Goal (LTG) Pt to get up in the morning and begin walking with no increased pain on 5/7 morning over the previous week to show improve function and soft tissue tone through hip musculature LTG Duration 12/07/20 One Impairment Pt does not have an appropriate home exercise plan Short Term Goal (STG) Pt to be independent and compliant with an appropriate HEP STG Duration 11/06/20 Assessment Summary Assessment Pt responded well to manual first then ther ex. Initiated 1/2 knee lunges w/ support of table and pillow under knee lowering to floor, good muscle work, can help me with eventually getting on the floor, sit on low step at the [employer] at work. Instructed self STMs racquetball on wall over gluts to decrease tightness and pain over L>R hip. I am able to move and feel muscles working better end of tx. Physical Therapy Plan Frequency and Duration Frequency of Treatment 2x/Week Duration of Treatment Two months Plan of Care Start Date 10/06/20 Plan of Care End Date 12/07/20 Therapeutic Interventions Therapeutic Interventions Home Exercise Program,Joint Mobilizations,Manual Therapy, Neuromuscular Re-education, Patient/Caregiver Education, Self-Care/Home Management,Soft Tissue Mobilization, Therapeutic Activities, Therapeutic Exercises Modalities Cold Pack/Ice Massage,Electric Stimulation,Hot Packs, Ultrasound Next Visit Focus/Plan Next Note Type Treatment Note Next Visit Plan Continue per POC: Hip flexibility, STM, strengthening *Pt'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
--- NOTE | 2020-11-09 16:44 | PT.OTN ---
Current Diagnoses Pain in right hip (11/09/20) Pain in left hip (11/09/20) Stiffness of left hip, not elsewhere classified (11/09/20) Sciatica, left side (11/09/20) Muscle weakness (generalized) (11/09/20) Trochanteric bursitis, left hip (11/09/20) Aftercare following joint replacement surgery (11/09/20) Physical Therapy Treatment Note PT-OP-A Visit Information Start: 10/06/20 17:33 Freq: Status: Active Protocol: Document 11/09/20 16:00 DCW (Rec: 11/09/20 16:44 DCW [id number]) Out-Patient Physical Therapy Visit Information Visit Information Visit Type Treatment Note Visit Start Time 16:00 Visit Stop Time 16:45 Total Visit Minutes 45 Visit Number 10 Number of VIDEO GAME ENGINEER Visits 0 Evaluation Information Evaluation Date 10/06/20 PT-OP-B Current Condition Start: 10/06/20 17:33 Freq: Status: Active Protocol: Document 10/06/20 16:00 DCW (Rec: 10/07/20 09:53 DCW [id number]) Current Condition History of Current Condition Onset Date A couple of months Current Complaints left>right posterior hip pain History of Current Condition Pt is a 74 year old female presenting with a two month history of left greater than right posterior hip pain. Pt reports she has the most pain lying on her side in bed, or when she first gets up and starts walking after sitting for a while. 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 Pt feels like it is probably sciatic nerve. Prior Treatments and Tests B XOCHILT anterior approach Treatment Goals Patient/Caregiver Goals Decrease hip pain PT-OP-C Subjective Start: 10/06/20 17:33 Freq: Status: Active Protocol: Document 11/09/20 16:00 DCW (Rec: 11/09/20 16:44 DCW [id number]) OP-PT Subjective Patient Comments Patient Comments I'm feeling a little bit better. I went to the chiropractor Monday and today, and it seems to be helping. PT-OP-F Manual Assessment Start: 10/06/20 17:33 Freq: Status: Active Protocol: Document 10/06/20 16:00 DCW (Rec: 10/07/20 09:53 [facility] [id number]) Manual Assessments Soft Tissue Assessment Soft Tissue Mobility Assessment Moderate tone with tenderness to palpation 3/4: Wincing and withdraw along bilateral piriformis, left ITB, bilateral psoas PT-OP-L Special Tests Start: 10/06/20 17:33 Freq: Status: Active Protocol: Document 10/06/20 16:00 DCW (Rec: 10/07/20 09:53 UTW [id number]) Special Tests Lumbar Spine Special Tests Vertical Spine Loading Test Results Negative Straight Leg Raise Test Results Negative Slump Test Results Negative Compression Test Results Negative Hip Special Tests Piriformis Test Results Positive bilaterally ROMINA Test Results Mild c/o L hip pain PT-OP-M Strength Start: 10/06/20 17:33 Freq: Status: Active Protocol: Document 10/06/20 16:00 DCW (Rec: 10/07/20 09:53 [facility] [id number]) Hip Strength Hip Manual Muscle Testing Right Flexion (L2) 4+ Good+ Abduction 4+ Good+ Adduction 4+ Good+ External Rotation 4+ Good+ Internal Rotation 4- Good- Left Flexion (L2) 4+ Good+ Abduction 4 Good Adduction 4+ Good+ External Rotation 4+ Good+ Internal Rotation 3+ Fair+ Knee Strength Knee Manual Muscle Testing Right Flexion (S2) 4+ Good+ Extension (L3) 4+ Good+ Left Flexion (S2) 4+ Good+ Extension (L3) 4+ Good+ PT-OP-Q Treatments Start: 10/06/20 17:33 Freq: Status: Active Protocol: Document 11/09/20 16:00 DCW (Rec: 11/09/20 16:44 DCW [id number]) Cardio Equipment Recumbent Elliptical ([employer]) Duration (Minutes) 5 Resistance 5 Seat Position 6 Gym Equipment Shuttle Recovery Unilateral Squats Resistance 62# Shuttle Recovery Platform Stable Bilateral Squats Resistance 112# Shuttle Recovery Platform Stable Therapeutic Exercises Supine Exercises 3 Supine Exercise Name Hamstring Stretch Side bilateral Equipment Used grasp behind thigh Reps/Minutes 30 Comments w/ ankle pump- good stretch response 2 Supine Exercise Name ITB Stretch Side bilateral 1 Supine Exercise Name Piriformis stretch - knee to opposite shoulder Side bilateral Reps/Minutes 30 x2 Standing Exercises 2 Standing Exercise Name Hip Extension Side bilateral Resistance Green Equipment Used T-band Reps/Minutes x10 Comments good feedback response, glut fac Other Exercises 1 Other Exercise Name Resisted fwd, bwd, side- stepping Resistance Green TB Equipment Used no contact rails today Reps/Minutes 2 laps each Comments good form Manual Therapy Treatment Soft Tissue Mobilization 4 Body Location B ITB Mobilization Type Strumming,Sustained Pressure Body Position Prone 3 Body Location B Paraspinals Mobilization Type Strumming,Sustained Pressure, Trigger Point Release Body Position Prone 2 Body Location B QL Mobilization Type Strumming,Sustained Pressure, Trigger Point Release Body Position Prone 1 Body Location B Piriformis Mobilization Type Strumming,Sustained Pressure, Trigger Point Release Body Position Prone Comments Instructed self using ball on wall- good response. PT-OP-T Assessment and Plan Start: 10/06/20 17:33 Freq: Status: Active Protocol: Document 11/09/20 16:00 DCW (Rec: 11/09/20 16:44 DCW [id number]) Physical Therapy Assessment Impairments Impairments Functional Activities, Functional Mobility,Pain,Soft Tissue Mobility,Strength,Tone Goals Three Impairment MMT shows left IR weakness of 3+/5 Prison Goal (LTG) Pt to exhibit at least 4/5 hip MMT in all planes to show improvement in mobility and stability of hips and spine LTG Duration 12/07/20 Two Impairment Pt has pain in hip when initiating gait following rest Lunchroom Operator Goal (LTG) Pt to get up in the morning and begin walking with no increased pain on 07/31 morning over the previous week to show improve function and soft tissue tone through hip musculature LTG Duration 12/07/20 One Impairment Pt does not have an appropriate home exercise plan Short Term Goal (STG) Pt to be independent and compliant with an appropriate HEP STG Duration 11/06/20 Assessment Summary Assessment Pt feeling better overall, feels good when leaving, but still has noticeable increase in pain in the days following her PT sessions. Physical Therapy Plan Frequency and Duration Frequency of Treatment 2x/Week Duration of Treatment Two months Plan of Care Start Date 10/06/20 Plan of Care End Date 12/07/20 Therapeutic Interventions Therapeutic Interventions Home Exercise Program,Joint Mobilizations,Manual Therapy, Neuromuscular Re-education, Patient/Caregiver Education, Self-Care/Home Management,Soft Tissue Mobilization, Therapeutic Activities, Therapeutic Exercises Modalities Cold Pack/Ice Massage,Electric Stimulation,Hot Packs, Ultrasound Next Visit Focus/Plan Next Note Type Treatment Note Next Visit Plan Continue per POC: Hip flexibility, STM, strengthening *Pt's goal 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
--- NOTE | 2020-11-12 15:59 | PT.OTN ---
Current Diagnoses Pain in right hip (11/12/20) Pain in left hip (11/12/20) Stiffness of left hip, not elsewhere classified (11/12/20) Sciatica, left side (11/12/20) Muscle weakness (generalized) (11/12/20) Trochanteric bursitis, left hip (11/12/20) Aftercare following joint replacement surgery (11/12/20) Physical Therapy Treatment Note PT-OP-A Visit Information Start: 10/06/20 17:33 Freq: Status: Active Protocol: Document 11/12/20 15:15 DCW (Rec: 11/12/20 15:59 DCW [id number]) Out-Patient Physical Therapy Visit Information Visit Information Visit Type Treatment Note Visit Start Time 15:15 Visit Stop Time 16:00 Total Visit Minutes 45 Visit Number 11 Number of WELDING ESTIMATOR Visits 0 Evaluation Information Evaluation Date 10/06/20 PT-OP-B Current Condition Start: 10/06/20 17:33 Freq: Status: Active Protocol: Document 10/06/20 16:00 DCW (Rec: 10/07/20 09:53 DCW [id number]) Current Condition History of Current Condition Onset Date A couple of months Current Complaints left>right posterior hip pain History of Current Condition Pt is a 74 year old female presenting with a two month history of left greater than right posterior hip pain. Pt reports she has the most pain lying on her side in bed, or when she first gets up and starts walking after sitting for a while. 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 Pt feels like it is probably sciatic nerve. Prior Treatments and Tests B XOCHILT anterior approach Treatment Goals Patient/Caregiver Goals Decrease hip pain PT-OP-C Subjective Start: 10/06/20 17:33 Freq: Status: Active Protocol: Document 11/12/20 15:15 DCW (Rec: 11/12/20 15:59 DCW [id number]) OP-PT Subjective Patient Comments Patient Comments I'm quite a bit better, but I wouldn't say all better yet. PT-OP-F Manual Assessment Start: 10/06/20 17:33 Freq: Status: Active Protocol: Document 10/06/20 16:00 DCW (Rec: 10/07/20 09:53 DCW [id number]) Manual Assessments Soft Tissue Assessment Soft Tissue Mobility Assessment Moderate tone with tenderness to palpation 3/4: Wincing and withdraw along bilateral piriformis, left ITB, bilateral psoas PT-OP-L Special Tests Start: 10/06/20 17:33 Freq: Status: Active Protocol: Document 10/06/20 16:00 DCW (Rec: 10/07/20 09:53 DCW [id number]) Special Tests Lumbar Spine Special Tests Vertical Spine Loading Test Results Negative Straight Leg Raise Test Results Negative Slump Test Results Negative Compression Test Results Negative Hip Special Tests Piriformis Test Results Positive bilaterally ROMINA Test Results Mild c/o L hip pain PT-OP-M Strength Start: 10/06/20 17:33 Freq: Status: Active Protocol: Document 10/06/20 16:00 DCW (Rec: 10/07/20 09:53 [facility] [id number]) Hip Strength Hip Manual Muscle Testing Right Flexion (L2) 4+ Good+ Abduction 4+ Good+ Adduction 4+ Good+ External Rotation 4+ Good+ Internal Rotation 4- Good- Left Flexion (L2) 4+ Good+ Abduction 4 Good Adduction 4+ Good+ External Rotation 4+ Good+ Internal Rotation 3+ Fair+ Knee Strength Knee Manual Muscle Testing Right Flexion (S2) 4+ Good+ Extension (L3) 4+ Good+ Left Flexion (S2) 4+ Good+ Extension (L3) 4+ Good+ PT-OP-Q Treatments Start: 10/06/20 17:33 Freq: Status: Active Protocol: Document 11/12/20 15:15 DCW (Rec: 11/12/20 15:59 DCW [id number]) Cardio Equipment Recumbent Elliptical ([employer]) Duration (Minutes) 5 Resistance 5 Seat Position 6 Therapeutic Exercises Supine Exercises 3 Supine Exercise Name Hamstring Stretch Side bilateral Equipment Used grasp behind thigh Reps/Minutes 30 Comments w/ ankle pump- good stretch response 2 Supine Exercise Name ITB Stretch Side bilateral 1 Supine Exercise Name Piriformis stretch - knee to opposite shoulder Side bilateral Reps/Minutes 30 x2 Standing Exercises 2 Standing Exercise Name Hip Extension, abduction Side bilateral Resistance Green Equipment Used T-band Reps/Minutes x10 Comments good feedback response, glut fac Other Exercises 1 Other Exercise Name Resisted fwd, bwd, side- stepping Resistance Green TB Equipment Used no contact rails today Reps/Minutes 2 laps each Comments good form Manual Therapy Treatment Soft Tissue Mobilization 4 Body Location B ITB Mobilization Type Strumming,Sustained Pressure Body Position Prone 3 Body Location B Paraspinals Mobilization Type Strumming,Sustained Pressure, Trigger Point Release Body Position Prone 2 Body Location B QL Mobilization Type Strumming,Sustained Pressure, Trigger Point Release Body Position Prone 1 Body Location B Piriformis Mobilization Type Strumming,Sustained Pressure, Trigger Point Release Body Position Prone Comments Instructed self using ball on wall- good response. PT-OP-T Assessment and Plan Start: 10/06/20 17:33 Freq: Status: Active Protocol: Document 11/12/20 15:15 DCW (Rec: 11/12/20 15:59 DCW [id number]) Physical Therapy Assessment Impairments Impairments Functional Activities, Functional Mobility,Pain,Soft Tissue Mobility,Strength,Tone Goals Three Impairment MMT shows left IR weakness of 3+/5 Snf Goal (LTG) Pt to exhibit at least 4/5 hip MMT in all planes to show improvement in mobility and stability of hips and spine LTG Duration 12/07/20 Two Impairment Pt has pain in hip when initiating gait following rest Internship Coordinator Goal (LTG) Pt to get up in the morning and begin walking with no increased pain on 07/31 morning over the previous week to show improve function and soft tissue tone through hip musculature LTG Duration 12/07/20 One Impairment Pt does not have an appropriate home exercise plan Short Term Goal (STG) Pt to be independent and compliant with an appropriate HEP STG Duration 11/06/20 Assessment Summary Assessment Pt showing noticeable decrease in tone overall, improvement with mobility. Physical Therapy Plan Frequency and Duration Frequency of Treatment 2x/Week Duration of Treatment Two months Plan of Care Start Date 10/06/20 Plan of Care End Date 12/07/20 Therapeutic Interventions Therapeutic Interventions Home Exercise Program,Joint Mobilizations,Manual Therapy, Neuromuscular Re-education, Patient/Caregiver Education, Self-Care/Home Management,Soft Tissue Mobilization, Therapeutic Activities, Therapeutic Exercises Modalities Cold Pack/Ice Massage,Electric Stimulation,Hot Packs, Ultrasound Next Visit Focus/Plan Next Note Type Treatment Note Next Visit Plan Continue per POC: Hip flexibility, STM, strengthening *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
--- NOTE | 2020-11-19 15:15 | PT.OTN ---
Current Diagnoses Pain in right hip (11/19/20) Pain in left hip (11/19/20) Stiffness of left hip, not elsewhere classified (11/19/20) Sciatica, left side (11/19/20) Muscle weakness (generalized) (11/19/20) Trochanteric bursitis, left hip (11/19/20) Aftercare following joint replacement surgery (11/19/20) Physical Therapy Treatment Note PT-OP-A Visit Information Start: 10/06/20 17:33 Freq: Status: Active Protocol: Document 11/19/20 14:30 DCW (Rec: 11/19/20 15:15 DCW [id number]) Out-Patient Physical Therapy Visit Information Visit Information Visit Type Treatment Note Visit Start Time 14:30 Visit Stop Time 15:15 Total Visit Minutes 45 Visit Number 12 Number of FINE JEWELRY SALES ASSOCIATE Visits 0 Evaluation Information Evaluation Date 10/06/20 PT-OP-B Current Condition Start: 10/06/20 17:33 Freq: Status: Active Protocol: Document 10/06/20 16:00 DCW (Rec: 10/07/20 09:53 DCW [id number]) Current Condition History of Current Condition Onset Date A couple of months Current Complaints left>right posterior hip pain History of Current Condition Pt is a 74 year old female presenting with a two month history of left greater than right posterior hip pain. Pt reports she has the most pain lying on her side in bed, or when she first gets up and starts walking after sitting for a while. 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 Pt feels like it is probably sciatic nerve. Prior Treatments and Tests B XOCHILT anterior approach Treatment Goals Patient/Caregiver Goals Decrease hip pain PT-OP-C Subjective Start: 10/06/20 17:33 Freq: Status: Active Protocol: Document 11/19/20 14:30 DCW (Rec: 11/19/20 15:15 DCW [id number]) OP-PT Subjective Patient Comments Patient Comments It's certainly better, but it 's not great yet. PT-OP-F Manual Assessment Start: 10/06/20 17:33 Freq: Status: Active Protocol: Document 10/06/20 16:00 DCW (Rec: 10/07/20 09:53 DCW [id number]) Manual Assessments Soft Tissue Assessment Soft Tissue Mobility Assessment Moderate tone with tenderness to palpation 3/4: Wincing and withdraw along bilateral piriformis, left ITB, bilateral psoas PT-OP-L Special Tests Start: 10/06/20 17:33 Freq: Status: Active Protocol: Document 10/06/20 16:00 DCW (Rec: 10/07/20 09:53 DCW [id number]) Special Tests Lumbar Spine Special Tests Vertical Spine Loading Test Results Negative Straight Leg Raise Test Results Negative Slump Test Results Negative Compression Test Results Negative Hip Special Tests Piriformis Test Results Positive bilaterally ROMINA Test Results Mild c/o L hip pain PT-OP-M Strength Start: 10/06/20 17:33 Freq: Status: Active Protocol: Document 10/06/20 16:00 DCW (Rec: 10/07/20 09:53 DCW [id number]) Hip Strength Hip Manual Muscle Testing Right Flexion (L2) 4+ Good+ Abduction 4+ Good+ Adduction 4+ Good+ External Rotation 4+ Good+ Internal Rotation 4- Good- Left Flexion (L2) 4+ Good+ Abduction 4 Good Adduction 4+ Good+ External Rotation 4+ Good+ Internal Rotation 3+ Fair+ Knee Strength Knee Manual Muscle Testing Right Flexion (S2) 4+ Good+ Extension (L3) 4+ Good+ Left Flexion (S2) 4+ Good+ Extension (L3) 4+ Good+ PT-OP-Q Treatments Start: 10/06/20 17:33 Freq: Status: Active Protocol: Document 11/19/20 14:30 DCW (Rec: 11/19/20 15:15 DCW [id number]) Cardio Equipment Recumbent Elliptical ([employer]) Duration (Minutes) 5 Resistance 5 Seat Position 6 Gym Equipment Shuttle Recovery Unilateral Squats Resistance 62# Shuttle Recovery Platform Stable Bilateral Squats Resistance 112# Shuttle Recovery Platform Stable Therapeutic Exercises Supine Exercises 3 Supine Exercise Name Hamstring Stretch Side bilateral Equipment Used grasp behind thigh Reps/Minutes 30 Comments w/ ankle pump- good stretch response 2 Supine Exercise Name ITB Stretch Side bilateral 1 Supine Exercise Name Piriformis stretch - knee to opposite shoulder Side bilateral Reps/Minutes 30 x2 Standing Exercises 2 Standing Exercise Name Hip Extension, abduction Side bilateral Resistance Green Equipment Used T-band Reps/Minutes x10 Comments good feedback response, glut fac Other Exercises 1 Other Exercise Name Resisted fwd, bkwd, side- stepping Resistance Green TB Equipment Used no contact rails today Reps/Minutes 2 laps each Comments good form Manual Therapy Treatment Soft Tissue Mobilization 4 Body Location B ITB Mobilization Type Strumming,Sustained Pressure Body Position Prone 3 Body Location B Paraspinals Mobilization Type Strumming,Sustained Pressure, Trigger Point Release Body Position Prone 2 Body Location B QL Mobilization Type Strumming,Sustained Pressure, Trigger Point Release Body Position Prone 1 Body Location B Piriformis Mobilization Type Strumming,Sustained Pressure, Trigger Point Release Body Position Prone Comments Instructed self using ball on wall- good response. PT-OP-T Assessment and Plan Start: 10/06/20 17:33 Freq: Status: Active Protocol: Document 11/19/20 14:30 DCW (Rec: 11/19/20 15:15 DCW [id number]) Physical Therapy Assessment Impairments Impairments Functional Activities, Functional Mobility,Pain,Soft Tissue Mobility,Strength,Tone Goals Three Impairment MMT shows left IR weakness of 3+/5 Supervisor Kennel Goal (LTG) Pt to exhibit at least 4/5 hip MMT in all planes to show improvement in mobility and stability of hips and spine LTG Duration 12/07/20 Two Impairment Pt has pain in hip when initiating gait following rest Supervisor Kennel Goal (LTG) Pt to get up in the morning and begin walking with no increased pain on 07/31 morning over the previous week to show improve function and soft tissue tone through hip musculature LTG Duration 12/07/20 One Impairment Pt does not have an appropriate home exercise plan Short Term Goal (STG) Pt to be independent and compliant with an appropriate HEP STG Duration 11/06/20 Assessment Summary Assessment Pt continues to make very good improvement, feeling substantially better with mobility. Physical Therapy Plan Frequency and Duration Frequency of Treatment 2x/Week Duration of Treatment Two months Plan of Care Start Date 10/06/20 Plan of Care End Date 12/07/20 Therapeutic Interventions Therapeutic Interventions Home Exercise Program,Joint Mobilizations,Manual Therapy, Neuromuscular Re-education, Patient/Caregiver Education, Self-Care/Home Management,Soft Tissue Mobilization, Therapeutic Activities, Therapeutic Exercises Modalities Cold Pack/Ice Massage,Electric Stimulation,Hot Packs, Ultrasound Next Visit Focus/Plan Next Note Type Treatment Note Next Visit Plan Continue per POC: Hip flexibility, STM, strengthening *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
--- NOTE | 2020-11-24 15:15 | PT.OTN ---
Current Diagnoses Pain in right hip (11/24/20) Pain in left hip (11/24/20) Stiffness of left hip, not elsewhere classified (11/24/20) Sciatica, left side (11/24/20) Muscle weakness (generalized) (11/24/20) Trochanteric bursitis, left hip (11/24/20) Aftercare following joint replacement surgery (11/24/20) Physical Therapy Treatment Note PT-OP-A Visit Information Start: 10/06/20 17:33 Freq: Status: Active Protocol: Document 11/24/20 14:31 SP (Rec: 11/24/20 15:51 SP [id number]) Out-Patient Physical Therapy Visit Information Visit Information Visit Type Treatment Note Visit Start Time 14:31 Visit Stop Time 15:15 Total Visit Minutes 44 Visit Number 13 Number of HEALTH INFORMATICS ADVISOR Visits 1 Evaluation Information Evaluation Date 10/06/20 PT-OP-B Current Condition Start: 10/06/20 17:33 Freq: Status: Active Protocol: Document 10/06/20 16:00 DCW (Rec: 10/07/20 09:53 DCW [id number]) Current Condition History of Current Condition Onset Date A couple of months Current Complaints left>right posterior hip pain History of Current Condition Pt is a 74 year old female presenting with a two month history of left greater than right posterior hip pain. Pt reports she has the most pain lying on her side in bed, or when she first gets up and starts walking after sitting for a while. 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 Pt feels like it is probably sciatic nerve. Prior Treatments and Tests B XOCHILT anterior approach Treatment Goals Patient/Caregiver Goals Decrease hip pain PT-OP-C Subjective Start: 10/06/20 17:33 Freq: Status: Active Protocol: Document 11/24/20 14:31 SP (Rec: 11/24/20 15:51 SP [id number]) OP-PT Subjective Patient Comments Patient Comments Doing better, not hurting badly, was stiff getting out of chair after sititng in chair at office chair. PT-OP-F Manual Assessment Start: 10/06/20 17:33 Freq: Status: Active Protocol: Document 10/06/20 16:00 DCW (Rec: 10/07/20 09:53 DCW [id number]) Manual Assessments Soft Tissue Assessment Soft Tissue Mobility Assessment Moderate tone with tenderness to palpation 3/4: Wincing and withdraw along bilateral piriformis, left ITB, bilateral psoas PT-OP-L Special Tests Start: 10/06/20 17:33 Freq: Status: Active Protocol: Document 10/06/20 16:00 DCW (Rec: 10/07/20 09:53 DCW [id number]) Special Tests Lumbar Spine Special Tests Vertical Spine Loading Test Results Negative Straight Leg Raise Test Results Negative Slump Test Results Negative Compression Test Results Negative Hip Special Tests Piriformis Test Results Positive bilaterally ROMINA Test Results Mild c/o L hip pain PT-OP-M Strength Start: 10/06/20 17:33 Freq: Status: Active Protocol: Document 10/06/20 16:00 DCW (Rec: 10/07/20 09:53 [facility] [id number]) Hip Strength Hip Manual Muscle Testing Right Flexion (L2) 4+ Good+ Abduction 4+ Good+ Adduction 4+ Good+ External Rotation 4+ Good+ Internal Rotation 4- Good- Left Flexion (L2) 4+ Good+ Abduction 4 Good Adduction 4+ Good+ External Rotation 4+ Good+ Internal Rotation 3+ Fair+ Knee Strength Knee Manual Muscle Testing Right Flexion (S2) 4+ Good+ Extension (L3) 4+ Good+ Left Flexion (S2) 4+ Good+ Extension (L3) 4+ Good+ PT-OP-Q Treatments Start: 10/06/20 17:33 Freq: Status: Active Protocol: Document 11/24/20 14:31 SP (Rec: 11/24/20 15:51 SP [id number]) Cardio Equipment Recumbent Elliptical ([employer]) Duration (Minutes) 5 Resistance 5 Seat Position 6 Other LEs only Gym Equipment Shuttle Recovery Unilateral Squats Details cued knee alignment Resistance 62# Shuttle Recovery Platform Stable Reps/Time 2x15 Bilateral Squats Resistance 112# Shuttle Recovery Platform Stable Reps/Time x20 Therapeutic Activity Therapeutic Activity on/ off floor, low step Comments 1. 1 rep: practiced 1/2 kneel onto R knee, use of chair BUE WB to guide self to floor, cued slow descent. 2. 3 reps on off 12 step with 8 step pulled out front to assimulate samaritan [employer] stairs for children's message- able complete with 1UE support on step for ascend/descent to/ from sitting with improved hip hinge- not as much pain as used to be, very low. Neuro Re-Education Treatment Balance Activities dynamic gait Details head turns, quicks stop, quick turns Surface firm Equipment gait belt Reps/Duration 40 ft x3 laps Comments no LOB, minor self corrections needed. step up/ downs Details knee alignment Equipment 8 step Comments cued posterior chain heel press facilitation- improved decreased knee discomfort with reps and knee alignment single elizabeth Details fwd, bkwd Surface firm Equipment elizabeth Reps/Duration each LE lead 2x5 reps balance on blue foam Details balance recovery Comments WBOS, NBOS, stagger 1. stationary stance 2. head turns 3. EC: WBOS 30, NBOS 30, Stagger 20-30 elizabeth stepping Equipment 6 hurdles, blue foam, wedge steps Reps/Duration 3 laps each Comments 1. step to, CGA- SBA 2. step over step, CGA 3. uneven, step over stepping CG- Kamla PT-OP-T Assessment and Plan Start: 10/06/20 17:33 Freq: Status: Active Protocol: Document 11/24/20 14:31 SP (Rec: 11/24/20 15:51 SP [id number]) Physical Therapy Assessment Goals Three Impairment MMT shows left IR weakness of 3+/5 Residential Goal (LTG) Pt to exhibit at least 4/5 hip MMT in all planes to show improvement in mobility and stability of hips and spine LTG Duration 12/07/20 Two Impairment Pt has pain in hip when initiating gait following rest Residential Goal (LTG) Pt to get up in the morning and begin walking with no increased pain on 07/31 morning over the previous week to show improve function and soft tissue tone through hip musculature LTG Duration 12/07/20 One Impairment Pt does not have an appropriate home exercise plan Short Term Goal (STG) Pt to be independent and compliant with an appropriate HEP STG Duration 11/06/20 Assessment Summary Assessment Pt responded well to ascend/ descend sitting on/ off 12 step and on/ off floor using UE support on chair with low pain pain to be able to continue children's message seated on low alter 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 Initiated neuro re- ed balance hurdles, uneven surfaces and step up/ downs with noted ankle weakness bilaterally requiring assist, improved less assist with repetitions. Next tx add ankle TB strengthening for HEP. Pt felt more confident in balance and is progressing. Physical Therapy Plan Frequency and Duration Frequency of Treatment 2x/Week Duration of Treatment Two months Plan of Care Start Date 10/06/20 Plan of Care End Date 12/07/20 Therapeutic Interventions Therapeutic Interventions Home Exercise Program,Joint Mobilizations,Manual Therapy, Neuromuscular Re-education, Patient/Caregiver Education, Self-Care/Home Management,Soft Tissue Mobilization, Therapeutic Activities, Therapeutic Exercises Modalities Cold Pack/Ice Massage,Electric Stimulation,Hot Packs, Ultrasound Next Visit Focus/Plan Next Note Type Treatment Note Next Visit Plan Assess response to dynamic balance, next tx add ankle TB strengthening. POC: Hip flexibility, STM, strengthening
--- NOTE | 2020-11-26 16:52 | PT.OTN ---
Current Diagnoses Pain in right hip (11/26/20) Pain in left hip (11/26/20) Stiffness of left hip, not elsewhere classified (11/26/20) Sciatica, left side (11/26/20) Muscle weakness (generalized) (11/26/20) Trochanteric bursitis, left hip (11/26/20) Aftercare following joint replacement surgery (11/26/20) Physical Therapy Treatment Note PT-OP-A Visit Information Start: 10/06/20 17:33 Freq: Status: Active Protocol: Document 11/26/20 16:00 DCW (Rec: 11/26/20 16:52 DCW [id number]) Out-Patient Physical Therapy Visit Information Visit Information Visit Type Treatment Note Visit Start Time 16:00 Visit Stop Time 16:45 Total Visit Minutes 45 Visit Number 14 Number of PORTABLE CANTEEN OPERATOR Visits 0 Evaluation Information Evaluation Date 10/06/20 PT-OP-B Current Condition Start: 10/06/20 17:33 Freq: Status: Active Protocol: Document 10/06/20 16:00 DCW (Rec: 10/07/20 09:53 DCW [id number]) Current Condition History of Current Condition Onset Date A couple of months Current Complaints left>right posterior hip pain History of Current Condition Pt is a 74 year old female presenting with a two month history of left greater than right posterior hip pain. Pt reports she has the most pain lying on her side in bed, or when she first gets up and starts walking after sitting for a while. 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 Pt feels like it is probably sciatic nerve. Prior Treatments and Tests B XOCHILT anterior approach Treatment Goals Patient/Caregiver Goals Decrease hip pain PT-OP-C Subjective Start: 10/06/20 17:33 Freq: Status: Active Protocol: Document 11/26/20 16:00 DCW (Rec: 11/26/20 16:52 DCW [id number]) OP-PT Subjective Patient Comments Patient Comments Pt reports that she is feeling better overall, but it is still sore enough that her sleep is disturbed. PT-OP-F Manual Assessment Start: 10/06/20 17:33 Freq: Status: Active Protocol: Document 10/06/20 16:00 DCW (Rec: 10/07/20 09:53 DCW [id number]) Manual Assessments Soft Tissue Assessment Soft Tissue Mobility Assessment Moderate tone with tenderness to palpation 3/4: Wincing and withdraw along bilateral piriformis, left ITB, bilateral psoas PT-OP-L Special Tests Start: 10/06/20 17:33 Freq: Status: Active Protocol: Document 10/06/20 16:00 DCW (Rec: 10/07/20 09:53 DCW [id number]) Special Tests Lumbar Spine Special Tests Vertical Spine Loading Test Results Negative Straight Leg Raise Test Results Negative Slump Test Results Negative Compression Test Results Negative Hip Special Tests Piriformis Test Results Positive bilaterally ROMINA Test Results Mild c/o L hip pain PT-OP-M Strength Start: 10/06/20 17:33 Freq: Status: Active Protocol: Document 10/06/20 16:00 DCW (Rec: 10/07/20 09:53 DCW [id number]) Hip Strength Hip Manual Muscle Testing Right Flexion (L2) 4+ Good+ Abduction 4+ Good+ Adduction 4+ Good+ External Rotation 4+ Good+ Internal Rotation 4- Good- Left Flexion (L2) 4+ Good+ Abduction 4 Good Adduction 4+ Good+ External Rotation 4+ Good+ Internal Rotation 3+ Fair+ Knee Strength Knee Manual Muscle Testing Right Flexion (S2) 4+ Good+ Extension (L3) 4+ Good+ Left Flexion (S2) 4+ Good+ Extension (L3) 4+ Good+ PT-OP-Q Treatments Start: 10/06/20 17:33 Freq: Status: Active Protocol: Document 11/26/20 16:00 DCW (Rec: 11/26/20 16:52 DCW [id number]) Cardio Equipment Recumbent Elliptical ([employer]) Duration (Minutes) 5 Resistance 5 Seat Position 7 Gym Equipment Shuttle Recovery Unilateral Squats Resistance 62# Shuttle Recovery Platform Stable Bilateral Squats Resistance 112# Shuttle Recovery Platform Stable Therapeutic Exercises Supine Exercises 3 Supine Exercise Name Hamstring Stretch Side bilateral Equipment Used grasp behind thigh Reps/Minutes 30 Comments w/ ankle pump- good stretch response 2 Supine Exercise Name ITB Stretch Side bilateral 1 Supine Exercise Name Piriformis stretch - knee to opposite shoulder Side bilateral Reps/Minutes 30 x2 Standing Exercises 2 Standing Exercise Name Hip Extension, abduction Side bilateral Resistance Green Equipment Used T-band Reps/Minutes x25 Other Exercises 1 Other Exercise Name Resisted fwd, bkwd, side- stepping Resistance Green TB Equipment Used no contact rails today Reps/Minutes 2 laps each Manual Therapy Treatment Soft Tissue Mobilization 4 Body Location B ITB Mobilization Type Strumming,Sustained Pressure Body Position Prone 3 Body Location B Paraspinals Mobilization Type Strumming,Sustained Pressure, Trigger Point Release Body Position Prone 2 Body Location B QL Mobilization Type Strumming,Sustained Pressure, Trigger Point Release Body Position Prone 1 Body Location B Piriformis Mobilization Type Strumming,Sustained Pressure, Trigger Point Release Body Position Prone Comments Instructed self using ball on wall- good response. PT-OP-T Assessment and Plan Start: 10/06/20 17:33 Freq: Status: Active Protocol: Document 11/26/20 16:00 DCW (Rec: 11/26/20 16:52 DCW [id number]) Physical Therapy Assessment Impairments Impairments Functional Activities, Functional Mobility,Pain,Soft Tissue Mobility,Strength,Tone Goals Three Impairment MMT shows left IR weakness of 3+/5 Zoo Director Goal (LTG) Pt to exhibit at least 4/5 hip MMT in all planes to show improvement in mobility and stability of hips and spine LTG Duration 12/07/20 Two Impairment Pt has pain in hip when initiating gait following rest Nursing Home Goal (LTG) Pt to get up in the morning and begin walking with no increased pain on 07/31 morning over the previous week to show improve function and soft tissue tone through hip musculature LTG Duration 12/07/20 One Impairment Pt does not have an appropriate home exercise plan Short Term Goal (STG) Pt to be independent and compliant with an appropriate HEP STG Duration 11/06/20 Assessment Summary Assessment Pt much less tender with STM today, noticeable reduction in tone. Physical Therapy Plan Frequency and Duration Frequency of Treatment 2x/Week Duration of Treatment Two months Plan of Care Start Date 10/06/20 Plan of Care End Date 12/07/20 Therapeutic Interventions Therapeutic Interventions Home Exercise Program,Joint Mobilizations,Manual Therapy, Neuromuscular Re-education, Patient/Caregiver Education, Self-Care/Home Management,Soft Tissue Mobilization, Therapeutic Activities, Therapeutic Exercises Modalities Cold Pack/Ice Massage,Electric Stimulation,Hot Packs, Ultrasound Next Visit Focus/Plan Next Note Type Treatment Note Next Visit Plan Assess response to dynamic balance, next tx add ankle TB strengthening. POC: Hip flexibility, STM, strengthening
--- NOTE | 2020-12-15 07:15 | PT-OP ANOTE ---
[employer] chart reviewed for scheduled appt today and noted that pt's POC on 12/07/20, she had cancelled 12/07 appt and NS 12/10 appt with primary PT. [employer] notified supervisor front and stated PT Troy in out on PTO and pt needs to see PT for POC updated for her to be seen by [employer]. medical front desk coordinator will call pt and see if can see another PT today or near future to update POC or opt to wait and see scheduled appt with primary PT Troy on upcoming scheduled appt on 12/17/20.
--- NOTE | 2020-12-16 09:37 | PT.OPDS ---
Current Diagnoses Pain in right hip (11/26/20) Pain in left hip (11/26/20) Stiffness of left hip, not elsewhere classified (11/26/20) Sciatica, left side (11/26/20) Muscle weakness (generalized) (11/26/20) Trochanteric bursitis, left hip (11/26/20) Aftercare following joint replacement surgery (11/26/20) Visit Care Team Role Provider Type Leighann Fleming MD Family Provider Physician Primary Care Provider Specialty: [facility] Address: [address] [place] [address], [facility] [place], [facility] Email: [email or web address] Cesar Attending Provider [employer] Referring Provider Specialty: [facility] Address: [address] [place] [address]. [facility] [place], [facility] Email: Visit Number Visit Number 14 Discharge Summary PT-OP-B Current Condition Start: 10/06/20 17:33 Freq: Status: Active Protocol: Document 10/06/20 16:00 DCW (Rec: 10/07/20 09:53 DCW [id number]) Current Condition History of Current Condition Onset Date A couple of months Current Complaints left>right posterior hip pain History of Current Condition Pt is a 74 year old female presenting with a two month history of left greater than right posterior hip pain. Pt reports she has the most pain lying on her side in bed, or when she first gets up and starts walking after sitting for a while. 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 Pt feels like it is probably sciatic nerve. Prior Treatments and Tests B XOCHILT anterior approach Treatment Goals Patient/Caregiver Goals Decrease hip pain PT-OP-C Subjective Start: 10/06/20 17:33 Freq: Status: Active Protocol: Document 11/26/20 16:00 DCW (Rec: 11/26/20 16:52 DCW [id number]) OP-PT Subjective Patient Comments Patient Comments Pt reports that she is feeling better overall, but it is still sore enough that her sleep is disturbed. PT-OP-F Manual Assessment Start: 10/06/20 17:33 Freq: Status: Active Protocol: Document 10/06/20 16:00 DCW (Rec: 10/07/20 09:53 [facility] [id number]) Manual Assessments Soft Tissue Assessment Soft Tissue Mobility Assessment Moderate tone with tenderness to palpation 3/4: Wincing and withdraw along bilateral piriformis, left ITB, bilateral psoas PT-OP-L Special Tests Start: 10/06/20 17:33 Freq: Status: Active Protocol: Document 10/06/20 16:00 DCW (Rec: 10/07/20 09:53 [facility] [id number]) Special Tests Lumbar Spine Special Tests Vertical Spine Loading Test Results Negative Straight Leg Raise Test Results Negative Slump Test Results Negative Compression Test Results Negative Hip Special Tests Piriformis Test Results Positive bilaterally ROMINA Test Results Mild c/o L hip pain PT-OP-M Strength Start: 10/06/20 17:33 Freq: Status: Active Protocol: Document 10/06/20 16:00 DCW (Rec: 10/07/20 09:53 [facility] [id number]) Hip Strength Hip Manual Muscle Testing Right Flexion (L2) 4+ Good+ Abduction 4+ Good+ Adduction 4+ Good+ External Rotation 4+ Good+ Internal Rotation 4- Good- Left Flexion (L2) 4+ Good+ Abduction 4 Good Adduction 4+ Good+ External Rotation 4+ Good+ Internal Rotation 3+ Fair+ Knee Strength Knee Manual Muscle Testing Right Flexion (S2) 4+ Good+ Extension (L3) 4+ Good+ Left Flexion (S2) 4+ Good+ Extension (L3) 4+ Good+ PT-OP-T Assessment and Plan Start: 10/06/20 17:33 Freq: Status: Active Protocol: Document 12/16/20 09:36 DCW (Rec: 12/16/20 09:37 [facility] [id number]) Physical Therapy Assessment Assessment Summary Assessment Pt spoke with front end technician, requested discharge, she feels she has gotten as much out of therapy as she is going to . Physical Therapy Plan Discharge Physical Therapy Discharge Reasons Patient Request Next Visit Focus/Plan Next Note Type Discharge Summary
== END 2020-12-16 12:35 | disposition home or self-care (01) ==
LOC: PHYS 16:00
PROVIDERS: Family Provider Student in an Organized Health Care Education/Training Program; PCP Student in an Organized Health Care Education/Training Program; Referring Provider Nurse Practitioner Family; Visit Provider Nurse Practitioner Family
DX: M70.62 Trochanteric bursitis, left hip (principal); M25.552 Pain in left hip; M25.551 Pain in right hip; M25.652 Stiffness of left hip, not elsewhere classified; M62.81 Muscle weakness (generalized); M54.32 Sciatica, left side; Z47.1 Aftercare following joint replacement surgery
CPT/HCPCS: 97110; 97112; 97140; 97161

== ENCOUNTER → 2021-03-15 07:58 | Outpatient (CLI) | payer MEDICARE, SELFPAY ==
--- NOTE | 2021-03-15 | DI.US.S_ITS ---
PROCEDURE: US ABD AORTA ANEURYSM SCREEN INDICATIONS: Atherosclerosis of aorta TECHNIQUE: Real time scanning was performed of the aorta and iliac arteries, with image documentation. COMPARISON: None. FINDINGS: Aorta: Proximal aortic diameter measures 2.5 cm. Mid-aorta measures 1.8 cm. Distal aortic diameter is 1.6 cm. Ujjh-vj-pfkgvldq plaque throughout the aorta. Iliac arteries: Right common iliac artery measures 1.8 cm. Left common iliac artery measures 1.9 cm. IMPRESSION: No abdominal aortic aneurysm. Minimal ectasia of the proximal aorta measuring 2.5 cm. Recommend follow-up aorta ultrasound in 5 years. Dictated by: Ghanshyam Howard M.D. on 03/15/2021 at 9:04 Approved by: Ghanshyam Howard M.D. on 03/15/2021 at 9:18
== END ==
PROVIDERS: Family Provider Student in an Organized Health Care Education/Training Program; PCP Student in an Organized Health Care Education/Training Program; Referring Provider Student in an Organized Health Care Education/Training Program; Visit Provider Student in an Organized Health Care Education/Training Program
DX: I70.0 Atherosclerosis of aorta (principal); Z87.891 Personal history of nicotine dependence
CPT/HCPCS: 76706

== ENCOUNTER → 2021-09-08 09:34 | Outpatient (CLI) | payer MEDICARE, SELFPAY | LOC: US 09:36 | PROVIDERS: Family Provider Student in an Organized Health Care Education/Training Program; PCP Student in an Organized Health Care Education/Training Program; Referring Provider Student in an Organized Health Care Education/Training Program; Visit Provider Student in an Organized Health Care Education/Training Program | DX: R92.8 Other abnormal and inconclusive findings on diagnostic imaging of breast (principal); Z53.20 Procedure and treatment not carried out because of patient's decision for unspecified reasons ==

== ENCOUNTER → 2021-09-17 09:09 | Outpatient (CLI) | payer MEDICARE, SELFPAY ==
--- NOTE | 2021-09-17 09:11 | DI.MG.S_ITS ---
BILATERAL DIGITAL DIAGNOSTIC MAMMOGRAM 3D/2D: 09/17/2021 CLINICAL: Short term follow up of the left breast, due for bilateral imaging. Comparison is made to exams dated: 07/13/2020 mammogram, 07/02/2020 mammogram - [facility], and 05/08/2013 mammogram - [facility]. There are scattered fibroglandular elements in both breasts. Residual calcifications and biopsy markers present in the left breast. No suspicious new clustered microcalcifications, mass, or asymmetry demonstrated. IMPRESSION: BENIGN No suspicious finding. Screening annual mammography recommended. This exam was interpreted at Station ID: [id number]. NOTE: For mammograms, a report in lay terms will be sent to the patient. Approximately 15% of breast malignancies will not be visualized mammographically. In the management of a palpable breast mass, a negative mammogram must not discourage biopsy of a clinically suspicious lesion. Electronically Signed By: Jong Arvizu M.D. jr/:09/17/2021 09:57:54 Entry: - 09/20/2021 09:20:13 letter sent: Normal Exam ACR BI-RADS Category 2: Benign Finding(s) 3342F
== END ==
PROVIDERS: Family Provider Student in an Organized Health Care Education/Training Program; PCP Student in an Organized Health Care Education/Training Program; Referring Provider Student in an Organized Health Care Education/Training Program; Visit Provider Student in an Organized Health Care Education/Training Program
DX: R92.8 Other abnormal and inconclusive findings on diagnostic imaging of breast (principal)
CPT/HCPCS: 77066; G0279

== ENCOUNTER → 2022-02-06 10:24 | Outpatient (CLI) | payer MEDICARE, SELFPAY ==
[2022-02-06 11:15] LABS: Influenza A - CEPHEID Flu A NEGATIVE (NEGATIVE); Influenza B - CEPHEID Flu B NEGATIVE (NEGATIVE); Respiratory Syncytial Virus POSITIVE (Negative)
[2022-02-06 11:19] LABS: COVID-19 CEPHEID 4-PLEX PCR Negative (Negative)
== END ==
PROVIDERS: Family Provider Student in an Organized Health Care Education/Training Program; PCP Family Medicine; Visit Provider Physician Assistant
DX: R05.9 Cough, unspecified (principal)
CPT/HCPCS: 0241U

== ENCOUNTER → 2022-02-06 10:37 | Outpatient (CLI) | payer MEDICARE, SELFPAY ==
--- NOTE | 2022-02-06 10:39 | DI.RAD.S_ITS ---
PROCEDURE: XR CHEST 2V INDICATIONS: Shortness of breath and wheezing TECHNIQUE: 2 views of the chest were acquired. COMPARISON: None. FINDINGS: Surgical changes and devices: None. Lungs and pleura: Lungs are clear. No pleural effusions or pneumothorax. The lungs are hyperexpanded, with flattening of the hemidiaphragms seen. Mediastinum: The cardiac contours are within normal limits. The aorta demonstrates calcification and tortuosity. Bones and chest wall: No suspicious bony abnormalities. Age-appropriate bony degenerative changes are seen. Soft tissues appear unremarkable. IMPRESSION: No acute plain film abnormality is seen. Dictated by: Deejay Solorzano M.D. on 02/06/2022 at 10:10 Approved by: Deejay Solorzano M.D. on 02/06/2022 at 10:11
== END ==
PROVIDERS: Family Provider Student in an Organized Health Care Education/Training Program; PCP Family Medicine; Referring Provider Physician Assistant; Visit Provider Physician Assistant
DX: R06.02 Shortness of breath (principal); R06.2 Wheezing; R05.9 Cough, unspecified
CPT/HCPCS: 0241U; 71046

== ENCOUNTER → 2022-12-20 10:37 | Outpatient (CLI) | payer MEDICARE, SELFPAY ==
--- NOTE | 2022-12-20 | DI.MG.S_ITS ---
BILATERAL DIGITAL SCREENING MAMMOGRAM 3D/2D WITH CAD: 12/20/2022 CLINICAL: Routine screening. Comparison is made to exams dated: 09/17/2021 mammogram, 07/13/2020 mammogram, 07/02/2020 mammogram - [facility], and 05/08/2013 mammogram - [facility]. There are scattered areas of fibroglandular density in both breasts (category b / 25%-50% glandular tissue). Current study was also evaluated with a Computer Aided Detection (CAD) system. There are benign calcifications in the left breast. There also are biopsy clips in the left breast. No significant masses, calcifications, or other findings are seen in either breast. There has been no significant interval change. IMPRESSION: BENIGN There is no mammographic evidence of malignancy. A 1 year screening mammogram is recommended. Based on the Tyrer Cuzick model (a risk assessment model) the patient's lifetime risk is 3.5% and her 10 year risk is 3.5%. According to the ACR, ACS, and NCCN guidelines, an annual breast MRI exam along with mammogram is recommended if the patient's lifetime risk is 20% or greater. This exam was interpreted at Station ID: [id number]. NOTE: For mammograms, a report in lay terms will be sent to the patient. Approximately 15% of breast malignancies will not be visualized mammographically. In the management of a palpable breast mass, a negative mammogram must not discourage biopsy of a clinically suspicious lesion. Electronically Signed By: Mary todd/rehana:12/20/2022 14:48:40 letter sent: Normal Exam ACR BI-RADS Category 2: Benign Finding(s) 3342F
== END ==
PROVIDERS: Family Provider Family Medicine; PCP Family Medicine; Referring Provider Family Medicine; Visit Provider Family Medicine
DX: Z12.31 Encounter for screening mammogram for malignant neoplasm of breast (principal)
CPT/HCPCS: 77063; 77067

== ENCOUNTER 2022-12-27 09:31 | Inpatient (IN) | payer MEDICARE, SELFPAY ==
[2022-12-27] VITALS (38 sets, daily range): BP systolic 141–194; BP diastolic 71–101; PULSE 78–113; RESP 13–31; TEMP 36.2–36.7; O2SAT 86–98; BMI 33.7
--- NOTE | 2022-12-27 09:35 | DI.RAD.S_ITS ---
PROCEDURE: XR CHEST 1V INDICATIONS: SOB TECHNIQUE: One view of the chest was acquired. COMPARISON: [facility], CR, XR CHEST 2V, 02/06/2022, 10:42. FINDINGS: Surgical changes and devices: None. Lungs and pleura: Lungs are clear. No pleural effusions or pneumothorax. Mediastinum: Mediastinal contours appear normal. Heart size is normal. Bones and chest wall: No suspicious bony lesions. Overlying soft tissues appear unremarkable. IMPRESSION: Portable chest within normal limits for age. Dictated by: Abdoul Cramer M.D. on 12/27/2022 at 10:08 Approved by: Abdoul Cramer M.D. on 12/27/2022 at 10:09
--- NOTE | 2022-12-27 09:41 | ED.GENADULT ---
HPI - General Adult General Chief complaint: Shortness of Breath/Dyspnea Stated complaint: SOB x1wk Time Seen by Provider: 12/27/22 09:34 Source: patient and EMS Mode of arrival: EMS Limitations: no limitations History of Present Illness HPI narrative: 77-year-old female. Has a history of asthma. Is here for evaluation of approximately 1 week of shortness of breath. She states there are periods of time when it is much worse than others and there are periods of time where she relatively does not have shortness of breath but has noticed that these episodes are becoming more frequent. She was getting more short of breath with exertion. She states this feels different than her asthma. She normally is not on oxygen. She contacted EMS because this morning she would an episode of shortness of breath. No chest pain. No lower extremity swelling. No history of heart failure. She does have history of high blood pressure. Not on anticoagulation. No fevers. No cough. Related Data Home Medications Medication Instructions Recorded Confirmed albuterol sulfate 90 mcg/actuation 2 puff INH Q4HP PRN Shortness Of 06/15/17 02/06/22 aerosol inhaler (Ventolin HFA) Breath ##0 aspirin 81 mg tablet,delayed 81 mg PO DAILY 09/11/17 02/06/22 release (Adult Low Dose Aspirin) Vitamin D3 1 cap PO DAILY 12/03/17 02/06/22 multivitamin 1 tab PO DAILY 12/03/17 02/06/22 Magnesium 1 dose DAILY 03/01/18 02/06/22 simvastatin 20 mg tablet 20 mg PO BEDTIME 03/01/18 02/06/22 allopurinol 300 mg tablet 300 mg PO 11/05/19 02/06/22 bupropion HCl 300 mg 24 hr tablet, 300 mg PO DAILY 11/05/19 02/06/22 extended release lisinopril 20 mg tablet 20 mg PO DAILY 11/05/19 02/06/22 biotin 1 mg capsule 1 mg PO DAILY 08/19/20 02/06/22 calcium carbonate 500 mg calcium 500 mg PO DAILY 08/19/20 02/06/22 (1,250 mg) chewable tablet (Calcium 500) Allergies Allergy/AdvReac Type Severity Reaction Status Date / Time peanut [PEANUT] Allergy Severe ASTHMA Verified 02/06/22 10:03 REACTION Sulfa (Sulfonamide Allergy Severe WELTS Verified 02/06/22 10:03 Antibiotics) [SULFA (SULFONAMIDE ANTIBIOTICS)] oyster extract Allergy Intermediate Mild Verified 02/06/22 10:03 [OYSTER EXTRACT] throat swelling Penicillins [PENICILLINS] Allergy Mild DIARRHEA Verified 02/06/22 10:03 morphine [MORPHINE] AdvReac Mild NAUSEA, Verified 02/06/22 10:03 DID NOT WORK FOR PAIN Review of Systems Review of Systems ROS Unobtainable: All systems reviewed & are unremarkable except as noted in HPI and below Patient History Medical History Allergic rhinitis (Unknown) Ankle pain (Unknown) Asthma (Unknown) Asthma (Unknown) Carpal tunnel syndrome (Unknown) Cataracts, bilateral (~2014) Chronic back pain (Unknown) Depression Depression, controlled Eczema (Unknown) Foot pain (Unknown) Fractures (Unknown) Glaucoma (2012) Heavy menstrual period (~1958) Hyperlipemia (Unknown) Hypertension (Unknown) Lumbar disc disease (Unknown) Osteopenia (Unknown) Painful menstrual periods (~1958) Shoulder pain (Unknown) Surgical History History of left hip replacement (2015) Hx of appendectomy (2015) Hx of cataract surgery (2014) Hx of tonsillectomy (~1953) Family History Child Age: 44 Heart disease Hypertension Stroke Mother Hypertension Stroke High cholesterol Father Heart disease Grandmother Heart disease Grandmother No problems noted. Social History marital status: household members: spouse occupational status: employed Smoking Status: Former smoker Tobacco: How many years used: 5 alcohol intake: current substance use type: does not use Smoking Status: Former smoker alcohol intake frequency: holidays/special occasions only Substance Use Type: does not use Exam Initial Vital Signs Initial Vital Signs: Vital Signs Temperature 98.1 F 12/27/22 09:37 Pulse Rate 109 H 12/27/22 09:37 Respiratory Rate 20 12/27/22 09:37 Blood Pressure 194/99 H 12/27/22 09:37 Pulse Oximetry 93 12/27/22 09:37 Oxygen Delivery Method Room Air 12/27/22 09:37 Const General: cooperative, comfortable and No ill appearing [facility] Head: normal to inspection Ears: hearing grossly normal bilaterally Resp Effort & Inspection: normal respiratory effort Auscultation: clear to auscultation bilaterally Cardio Rate: tachycardic Rhythm: regular rhythm GI Inspection: normal to inspection Skin General: no rashes or lesions noted Neuro General: patient alert, patient awake and moves all extremities Extrem General: No edema Course Orders Ordered: ED Orders 12/27/22 09:35 XR chest 1V Stat Complete Blood Count AUTO DIFF Stat Comprehensive Metabolic Panel Stat D Dimer Stat Lipase Stat NT-proBNP (BNP-Adult 18+) Stat Procalcitonin Stat Troponin & CK Cardiac Panel Stat EKG-12 Lead Stat 12/27/22 09:40 Covid-19 + FLU A/B + RSV - PCR Stat 12/27/22 09:45 PTT Partial Thromboplastin Julio Cesar Stat Prothrombin Time INR Stat 12/27/22 09:56 CT angio chest PE protocol Stat 12/27/22 11:18 EC echo doppler complete Stat 12/27/22 13:35 Consult to Physician Stat 12/27/22 13:36 Consult to Physician Urgent 12/27/22 17:15 PTT Partial Thromboplastin Julio Cesar Q6H 12/27/22 23:15 PTT Partial Thromboplastin Julio Cesar Q6H 12/28/22 05:00 Hemoglobin and Hematocrit DAILY Platelet Count DAILY 12/28/22 05:15 PTT Partial Thromboplastin Julio Cesar Q6H 12/29/22 05:00 Hemoglobin and Hematocrit DAILY Platelet Count DAILY Heparin Sodium/Dextrose (Heparin Drip) 25,000 unit in 500 mls @ 20 mls/hr IV CONT CHRISTOPHER; Protocol Last Admin: 12/27/22 11:17 Dose: 1,000 units/hr, 20 mls/hr Documented By: ROBBIE Co-signed By: KM Discontinued Medications Heparin Sodium (Porcine) (Heparin 5,000 Unit/Ml Vial) 7,100 unit 80 unit/kg (7100 unit) IV NOW ONE Stop: 12/27/22 11:04 Last Admin: 12/27/22 11:16 Dose: 7,100 unit Documented By: ROBBIE Vital Signs Vital signs: Vital Signs - 8 hr 12/27/22 09:37 12/27/22 09:38 12/27/22 09:41 Temperature 98.1 F Pulse Rate 109 H 110 H Respiratory Rate 20 27 H Blood Pressure 194/99 H 194/99 H Pulse Oximetry 93 92 Oxygen Delivery Method Room Air Oxygen Flow Rate 12/27/22 09:41 12/27/22 10:00 12/27/22 10:00 Temperature Pulse Rate 108 H 104 H Respiratory Rate 24 23 Blood Pressure 141/88 H Pulse Oximetry 93 94 Oxygen Delivery Method Oxygen Flow Rate 12/27/22 10:16 12/27/22 10:16 12/27/22 10:18 Temperature Pulse Rate 106 H 101 H Respiratory Rate 23 18 Blood Pressure 165/95 H 165/95 H Pulse Oximetry 94 95 Oxygen Delivery Method Room Air Nasal Cannula Oxygen Flow Rate 2 12/27/22 10:20 12/27/22 10:22 12/27/22 10:24 Temperature Pulse Rate 101 H 100 H 100 H Respiratory Rate 13 15 15 Blood Pressure Pulse Oximetry 95 95 94 Oxygen Delivery Method Oxygen Flow Rate 12/27/22 10:26 12/27/22 10:28 12/27/22 10:30 Temperature Pulse Rate 100 H 100 H Respiratory Rate 17 15 Blood Pressure 166/91 H Pulse Oximetry 94 94 Oxygen Delivery Method Oxygen Flow Rate 12/27/22 10:30 12/27/22 10:32 12/27/22 10:34 Temperature Pulse Rate 100 H 100 H 100 H Respiratory Rate 16 15 16 Blood Pressure Pulse Oximetry 94 94 93 Oxygen Delivery Method Oxygen Flow Rate 12/27/22 10:36 12/27/22 10:38 12/27/22 10:40 Temperature Pulse Rate 100 H 100 H 101 H Respiratory Rate 15 17 15 Blood Pressure Pulse Oximetry 94 94 94 Oxygen Delivery Method Oxygen Flow Rate 12/27/22 10:42 12/27/22 10:44 12/27/22 10:46 Temperature Pulse Rate 101 H 100 H 100 H Respiratory Rate 17 18 15 Blood Pressure Pulse Oximetry 93 93 93 Oxygen Delivery Method Oxygen Flow Rate 12/27/22 10:48 12/27/22 10:50 12/27/22 10:52 Temperature Pulse Rate 101 H 101 H 109 H Respiratory Rate 17 29 H 29 H Blood Pressure Pulse Oximetry 94 94 Oxygen Delivery Method Oxygen Flow Rate 12/27/22 10:54 12/27/22 10:56 12/27/22 10:58 Temperature Pulse Rate 113 H 104 H 99 H Respiratory Rate 31 H 23 31 H Blood Pressure Pulse Oximetry 86 L 95 96 Oxygen Delivery Method Room Air Nasal Cannula Oxygen Flow Rate 4 12/27/22 11:00 12/27/22 11:00 12/27/22 11:27 Temperature Pulse Rate 98 H Respiratory Rate 18 Blood Pressure 168/101 H 162/93 H Pulse Oximetry 96 Oxygen Delivery Method Nasal Cannula Oxygen Flow Rate 4 12/27/22 11:27 12/27/22 11:30 12/27/22 11:30 Temperature Pulse Rate 99 H 99 H Respiratory Rate 21 18 Blood Pressure 164/95 H Pulse Oximetry 95 96 Oxygen Delivery Method Oxygen Flow Rate 12/27/22 12:00 12/27/22 12:00 Temperature Pulse Rate 97 H Respiratory Rate 19 Blood Pressure 151/90 H Pulse Oximetry 95 Oxygen Delivery Method Oxygen Flow Rate Medical Decision Making Lab Data Lab results reviewed: Yes I reviewed the patient's lab results. 12/27/22 09:35 12/27/22 09:35 Labs: Lab Results 12/27/22 12/27/22 12/27/22 Range/Units 09:35 09:35 09:35 WBC 9.5 (4.5-11.0) X10^3/uL RBC 4.83 (4.0-5.2) X10^6/uL Hgb 14.5 (12.0-16.0) g/dL Hct 43.7 (36-46) % MCV 90.6 (80-100) fL MCH 30.0 (26-34) PG MCHC 33.1 (30-36) % RDW 15.6 H (11.6-14.8) % Plt Count 254 (150-400) X10^3/uL Neut % (Auto) 68.7 (50-75) % Lymph % (Auto) 21.1 L (25-40) % [place] % (Auto) 5.0 (3-14) % Eos % (Auto) 4.0 (2-4) % Baso % (Auto) 1.2 (0-2) % Neut # (Auto) 6500 (5404-6389) /uL Lymph # (Auto) 2000 (4737-7272) /uL [place] # (Auto) 500 (0-900) /uL Eos # (Auto) 400 (0-450) /uL Baso # (Auto) 100 (0-100) /uL PT (10.1-12.7) SECONDS INR (0.9-1.3) APTT (26-36) SECONDS D-Dimer 6003 H (<500) ng/ml Sodium 141 (137-145) mmol/L Potassium 4.1 (3.4-5.1) mmol/L Chloride 106 (98-107) mmol/L Carbon Dioxide 26 (22-32) mmol/L BUN 17 (7-17) mg/dL Creatinine 0.82 (0.52-1.04) mg/dL Estimated GFR > 60 (>60) mL/min BUN/Creatinine Ratio 20.7 (6-22) Glucose 116 H (80-110) mg/dL Calcium 9.4 (8.4-10.2) mg/dL Total Bilirubin 0.5 (0.2-1.3) mg/dL AST 24 (14-36) IU/L ALT 22 (<35) IU/L Alkaline Phosphatase 92 (38-126) U/L Total Creatine Kinase (30-135) U/L Troponin I (0.01-0.034) ng/mL NT-Pro-B Natriuret Pep 60 (<450) pg/mL Total Protein 7.4 (6.3-8.2) g/dL Albumin 4.2 (3.5-5.0) g/dL Globulin 3.2 (1.7-4.1) g/dL Albumin/Globulin Ratio 1.3 (1.0-2.8) Lipase 98 (23-300) U/L Procalcitonin 0.06 (<0.5) ng/mL SARS-CoV-2 (PCR) (Negative) Influenza A (RT-PCR) (NEGATIVE) Influenza B (RT-PCR) (NEGATIVE) RSV (PCR) (Negative) 12/27/22 12/27/22 12/27/22 Range/Units 09:35 09:40 09:45 WBC (4.5-11.0) X10^3/uL RBC (4.0-5.2) X10^6/uL Hgb (12.0-16.0) g/dL Hct (36-46) % MCV (80-100) fL MCH (26-34) PG MCHC (30-36) % RDW (11.6-14.8) % Plt Count (150-400) X10^3/uL Neut % (Auto) (50-75) % Lymph % (Auto) (25-40) % [place] % (Auto) (3-14) % Eos % (Auto) (2-4) % Baso % (Auto) (0-2) % Neut # (Auto) (4896-2431) /uL Lymph # (Auto) (7175-8675) /uL [place] # (Auto) (0-900) /uL Eos # (Auto) (0-450) /uL Baso # (Auto) (0-100) /uL PT 11.7 (10.1-12.7) SECONDS INR 1.0 (0.9-1.3) APTT 31 (26-36) SECONDS D-Dimer (<500) ng/ml Sodium (137-145) mmol/L Potassium (3.4-5.1) mmol/L Chloride (98-107) mmol/L Carbon Dioxide (22-32) mmol/L BUN (7-17) mg/dL Creatinine (0.52-1.04) mg/dL Estimated GFR (>60) mL/min BUN/Creatinine Ratio (6-22) Glucose (80-110) mg/dL Calcium (8.4-10.2) mg/dL Total Bilirubin (0.2-1.3) mg/dL AST (14-36) IU/L ALT (<35) IU/L Alkaline Phosphatase (38-126) U/L Total Creatine Kinase 79 (30-135) U/L Troponin I < 0.012 (0.01-0.034) ng/mL NT-Pro-B Natriuret Pep (<450) pg/mL Total Protein (6.3-8.2) g/dL Albumin (3.5-5.0) g/dL Globulin (1.7-4.1) g/dL Albumin/Globulin Ratio (1.0-2.8) Lipase (23-300) U/L Procalcitonin (<0.5) ng/mL SARS-CoV-2 (PCR) Negative (Negative) Influenza A (RT-PCR) Flu a negative (NEGATIVE) Influenza B (RT-PCR) Flu b negative (NEGATIVE) RSV (PCR) Negative (Negative) Imaging Data Chest x-ray: Radiologist's Impression: PROCEDURE:? XR CHEST 1V ? INDICATIONS:? SOB ? TECHNIQUE:? One view of the chest was acquired.? ? COMPARISON:? [facility], CR, XR CHEST 2V, 02/06/2022, 10:42. ? FINDINGS:? ? Surgical changes and devices:? None.? ? Lungs and pleura:? Lungs are clear.? No pleural effusions or pneumothorax.? ? Mediastinum:? Mediastinal contours appear normal.? Heart size is normal.? ? Bones and chest wall:? No suspicious bony lesions.? Overlying soft tissues appear unremarkable.? ? ? IMPRESSION:? Portable chest within normal limits for age. CTA chest: Radiologist's Impression: PROCEDURE:? CT ANGIO CHEST PE PROTOCOL ? INDICATIONS:? Chest pain, shortness of breath, tachycardia ? TECHNIQUE:? After the administration of intravenous contrast, 2 mm thick sections acquired from the pulmonary apices to the posterior costophrenic angles.? 3-dimensional maximum intensity projection (MIP) coronal and sagittal reformats were then acquired through the thorax.? For radiation dose reduction, the following was used:? automated exposure control, adjustment of mA and/or kV according to patient size.? ? COMPARISON:? [facility], CT, ABDOMEN/PELVIS WITH CONTRAST, 08/08/2015, 22:18.? [facility], CR, XR CHEST 1V, 12/27/2022, 9:52. ? FINDINGS:? Image quality:? Excellent.? ? Pulmonary arteries:? Pulmonary arteries are normal in size.? There are intraluminal filling defects involving the main, lobar and segmental pulmonary arteries bilaterally consistent with central pulmonary embolism.? ? Lungs and pleura:? Small right pleural effusion.? There are mild right basilar infiltrate..? No pleural effusions or pneumothorax.? Central and peripheral airways are patent.? Small lung nodules are present, unchanged since 08/08/2015, likely benign. ? -5 mm; right lower lobe; series 5, image 178. -2 mm; right lower lobe; series 5, image 173. -2 mm; left lower lobe; series 5, image 172. ? Mediastinum:? Heart size is normal, without pericardial effusion.? Right atrium is mildly prominent in size.? No mediastinal or hilar adenopathy.? Thoracic aorta is normal in caliber and enhancement.? Esophagus is normal in caliber, without hiatal hernia.? ? Bones and chest wall:? No suspicious bony lesions.? Ribs and thoracic spine appear intact throughout.? Thyroid gland is normal.? No axillary or supraclavicular adenopathy.? ? Abdomen:? There is contrast reflux into the hepatic vein.? Multiple hypodense nodules in liver are most likely cysts..? ? IMPRESSION:? ? 1. Bilateral pulmonary embolism involving the main, lobar and segmental pulmonary arteries. ? 2. Mild enlarged of right atrium and IV contrast reflux into the hepatic vein suggesting right heart strain. ? 3. Mild right lower lobe infiltrate and small right pleural effusion, which is likely secondary to pulmonary infarct. ? 4. Small lung nodules are unchanged since 08/08/2015, likely benign. ECG Data Attestation: I personally reviewed and interpreted this ECG as follows: Interpretation: Sinus tachycardia Ventricular rate 107 Normal axis Normal QRS Normal QTC No ST T wave changes MDM Narrative Medical decision making narrative: Patient has been short of breath specifically on exertion for at least a week if not longer. She was tachycardic. Not hypotensive. Oxygen saturations on room air have been in the low 90s but she does feel much better with oxygen by nasal cannula. No fevers. Chest x-ray shows no pneumonia. Troponin and BNP unremarkable. CT scan of the chest does show bilateral pulmonary emboli and some concern for right heart strain. When the patient got up to use the bedside commode her oxygen saturations did drop to the mid 80s. She returns back to the mid 90s upon lying in bed and her oxygen. I did discuss the case with Interventional Cardiology at [facility]. He reviewed the CT scan with the radiologist. He stated that the patient would not be a candidate for ECOS given the locations of the clots. Given her shortness of breath need for oxygen she does require admission to the hospital. She is been on heparin. Echocardiogram ordered. Discussed the case with Dr. Moyer on-call for the patient's primary provider who will admit for further evaluation and treatment. Discussed the need for admission with the patient she expressed understanding and agreement as well. Discharge Plan Departure Patient Disposition: Admitted As Inpatient Clinical Impression: Pulmonary embolism, Hypoxia Admit Date/Time: 12/27/22 13:37 Admit Provider: Denilson Moyer
[2022-12-27 09:46] LABS: Add Manual Diff / Slide Review NO; Basophils Absolute Auto 100 /uL (0-100); Basophils Percent Auto 1.2 % (0-2); Eosinophils Absolute Auto 400 /uL (0-450); Hematocrit 43.7 % (36-46); Hemoglobin 14.5 g/dL (12.0-16.0); Lymphocytes Absolute Auto 2000 /uL (1100-4500); Lymphocytes Percent Auto 21.1 % (25-40); Mean Corpuscular HGB Conc 33.1 % (30-36); Mean Corpuscular Volume 90.6 fL (80-100); Monocytes Absolute Auto 500 /uL (0-900); Neutrophils Absolute Auto 6500 /uL (1500-7000); Neutrophils Percent Auto 68.7 % (50-75); Platelet Count 254 X10^3/uL (150-400); Red Blood Cell Count 4.83 X10^6/uL (4.0-5.2); Red Cell Distribution Width 15.6 % (11.6-14.8); White Blood Cell Count 9.5 X10^3/uL (4.5-11.0)
[2022-12-27 09:54] LABS: D Dimer 6003 ng/ml (<500)
--- NOTE | 2022-12-27 09:56 | DI.CT.S_ITS ---
PROCEDURE: CT ANGIO CHEST PE PROTOCOL INDICATIONS: Chest pain, shortness of breath, tachycardia TECHNIQUE: After the administration of intravenous contrast, 2 mm thick sections acquired from the pulmonary apices to the posterior costophrenic angles. 3-dimensional maximum intensity projection (MIP) coronal and sagittal reformats were then acquired through the thorax. For radiation dose reduction, the following was used: automated exposure control, adjustment of mA and/or kV according to patient size. COMPARISON: [facility], CT, ABDOMEN/PELVIS WITH CONTRAST, 08/08/2015, 22:18. [facility], CR, XR CHEST 1V, 12/27/2022, 9:52. FINDINGS: Image quality: Excellent. Pulmonary arteries: Pulmonary arteries are normal in size. There are intraluminal filling defects involving the main, lobar and segmental pulmonary arteries bilaterally consistent with central pulmonary embolism. Lungs and pleura: Small right pleural effusion. There are mild right basilar infiltrate.. No pleural effusions or pneumothorax. Central and peripheral airways are patent. Small lung nodules are present, unchanged since 08/08/2015, likely benign. -5 mm; right lower lobe; series 5, image 178. -2 mm; right lower lobe; series 5, image 173. -2 mm; left lower lobe; series 5, image 172. Mediastinum: Heart size is normal, without pericardial effusion. Right atrium is mildly prominent in size. No mediastinal or hilar adenopathy. Thoracic aorta is normal in caliber and enhancement. Esophagus is normal in caliber, without hiatal hernia. Bones and chest wall: No suspicious bony lesions. Ribs and thoracic spine appear intact throughout. Thyroid gland is normal. No axillary or supraclavicular adenopathy. Abdomen: There is contrast reflux into the hepatic vein. Multiple hypodense nodules in liver are most likely cysts.. IMPRESSION: 1. Bilateral pulmonary embolism involving the main, lobar and segmental pulmonary arteries. 2. Mild enlarged of right atrium and IV contrast reflux into the hepatic vein suggesting right heart strain. 3. Mild right lower lobe infiltrate and small right pleural effusion, which is likely secondary to pulmonary infarct. 4. Small lung nodules are unchanged since 08/08/2015, likely benign. Dictated by: David Alcantar M.D. on 12/27/2022 at 10:17 Approved by: David Alcantar M.D. on 12/27/2022 at 10:26
[2022-12-27 10:00] LABS: Alanine Aminotransferase 22 IU/L (<35); Albumin 4.2 g/dL (3.5-5.0); Albumin Globulin Ratio 1.3 (1.0-2.8); Alkaline Phosphatase 92 U/L (38-126); Aspartate Aminotransferase 24 IU/L (14-36); BUN Creatinine Ratio 20.7 (6-22); Bilirubin Total 0.5 mg/dL (0.2-1.3); Blood Urea Nitrogen 17 mg/dL (7-17); Calcium 9.4 mg/dL (8.4-10.2); Carbon Dioxide 26 mmol/L (22-32); Chloride 106 mmol/L (98-107); Creatine Kinase 79 U/L (30-135); Estimated Glomerular Filt Rate > 60 mL/min (>60); Globulin 3.2 g/dL (1.7-4.1); Glucose 116 mg/dL (80-110); HEMOLYSIS < 15 (0-50); Lipase 98 U/L (23-300); Potassium 4.1 mmol/L (3.4-5.1); Sodium 141 mmol/L (137-145); Total Protein 7.4 g/dL (6.3-8.2)
[2022-12-27 10:09] LABS: NT-proBNP (BNP-Adult 18+) 60 pg/mL (<450)
[2022-12-27 10:12] LABS: Troponin I < 0.012 ng/mL (0.01-0.034)
[2022-12-27 10:17] LABS: Procalcitonin 0.06 ng/mL (<0.5)
[2022-12-27 10:27] LABS: Influenza A - CEPHEID Flu A NEGATIVE (NEGATIVE); Influenza B - CEPHEID Flu B NEGATIVE (NEGATIVE); Respiratory Syncytial Virus Negative (Negative)
[2022-12-27 10:28] LABS: COVID-19 CEPHEID 4-PLEX PCR Negative (Negative)
[2022-12-27 10:49] LABS: Prothrombin Time 11.7 SECONDS (10.1-12.7)
[2022-12-27 10:52] LABS: PTT Partial Thromboplastin Tim 31 SECONDS (26-36)
--- NOTE | 2022-12-27 11:01 | PC.NURSE ---
RN assisted pt to commode, while pt was sitting on the commode her O2 sats dipped to 86%, pt states at that same time she felt increased pressure in her chest. Pt placed on 4L NC and assisted back to bed. Dr. Hutton notified.
[2022-12-27] MEDS: HEPARIN 5,000 UNIT/ML VIAL 7100 UNIT IV (11:16)
[2022-12-27] MEDS: HEPARIN DRIP 25,000 UNIT/500 ML IV.SOLN 20 UNIT IV (11:17)
--- NOTE | 2022-12-27 11:18 | DI.ECHO.S_ITS ---
[facility]---------+ [facility] +---------+ : : [address] [place] : : : : [phone] : : : : Phone: [phone] Echocardiogram Report + + :Name: NURIA ROBERTS Study Date: 12/27/2022 Height: 64 in : :[facility] ReadingLocation: Weight: 197 lb : : Gender: Female BSA: 1.9 m2 : :: 1945 Age: 77 yrs BP: 151/90 mmHg: :Reason For Study: PULMONARY EMBOLISM : :Ordering Physician: IRAM, : :APRIL Performed By: Jennifer Steele : :Referring: APRIL WALDEN : + + Interpretation Summary The left ventricular cavity is small. The left ventricular ejection fraction is normal. The ejection fraction is estimated to be 60-65%. The right ventricle is normal size. Overall RV function preserved however from parasternal long axis view the mid RV segments appears to be hypokinetic and hyperkinetic RV apex. Likely positive Nava's sign suggestive of PE. A bicuspid aortic valve cannot be excluded. The aortic valve is moderately calcified. The peak aortic velocity is 2.0 m/sec. The aortic valve mean gradient is 8 mmHg. There is mild to moderately reduced leaflet mobility. There is no hemodynamically significant valvular aortic stenosis. There is mild tricuspid regurgitation. The right ventricular systolic pressure is estimated to be at least 43 mmHg based on an estimated right atrial pressure of 3 mm Hg. Mild atherosclerotic plaque(s) in the aortic arch. Procedure: A two-dimensional transthoracic echocardiogram with color flow and Doppler was performed. The study quality was technically adequate. There is no prior echocardiogram noted for this patient. The patient was in sinus rhythm with heart rates between 90-95 bpm during the exam. Left Ventricle: The left ventricular cavity is small. There is normal left ventricular wall thickness. There is no thrombus. The ejection fraction is estimated to be 60-65%. The left ventricular ejection fraction is normal. There are no focal wall motion abnormalities. Diastolic parameters suggest a relaxation abnormality of the left ventricle, consistent with probable normal filling pressures. Right Ventricle: The right ventricle is normal size. Overall RV function preserved however from parasternal long axis view the mid RV segments appears to be hypokinetic and hyperkinetic RV apex. Likely positive Nava's sign suggestive of PE. Atria: The left atrial size is normal. Right atrial size is normal. There is no Doppler evidence for an interatrial shunt. Mitral Valve: The mitral valve leaflets appear borderline thickened, but open well. There is mild mitral annular calcification. There is trace mitral regurgitation. Aortic Valve: The aortic valve is moderately calcified. A bicuspid aortic valve cannot be excluded. There is mild to moderately reduced leaflet mobility. The peak aortic velocity is 2.0 m/sec. The aortic valve mean gradient is 8 mmHg. There is no hemodynamically significant valvular aortic stenosis. No aortic regurgitation is present. Tricuspid Valve: The tricuspid valve is normal. There is mild tricuspid regurgitation. The right ventricular systolic pressure is estimated to be at least 43 mmHg based on an estimated right atrial pressure of 3 mm Hg. Pulmonic Valve: The pulmonic valve is not well visualized. There is no pulmonic valvular regurgitation. Great Vessels: The aortic root is normal size. The dimensions of the ascending aorta are normal. Mild atherosclerotic plaque(s) in the aortic arch. The IVC is of normal diameter and collapses greater than 50% with a sniff. This suggests a low right atrial pressure of 3 mm Hg. Pericardium/ Pleura There is no pericardial effusion. There is no pleural effusion. MMode/2D Measurements & Calculations LVIDd: 3.3 cm LVOT diam: 2.2 cm LVIDs: 2.4 cm Ao root diam: 3.1 cm FS: 26.5 % asc Aorta Diam: 3.5 cm IVSd: 0.81 cm Ao Arch Diam (Prox Trans): 3.1 cm LVPWd: 0.82 cm LV samuels. diameter/BSA (cm/m^2): 1.7 LV sys. diameter/BSA (cm/m^2): 1.3 LA A2 area: 16.2 cm2 RA long axis: 4.0 cm LA A4 area: 11.8 cm2 RA area: 11.3 cm2 LA length (vol): 4.0 cm RA vol: 27.3 ml LA vol: 40.7 ml RA : 14.1 ml/m2 LA vol index: 20.9 ml/m2 IVC diam: 1.1 cm RVD1 (basal): 3.3 cm RVD2 (mid): 2.8 cm TAPSE: 1.7 cm Doppler Measurements & Calculations Ao V2 max: 196.1 cm/sec LVOT Max Abad: 108.3 cm/sec Ao V2 mean: 126.5 cm/sec LV V1 max P.7 mmHg Ao max P.5 mmHg LV V1 VTI: 20.7 cm Ao mean P.6 mmHg LEONEL(I,D): 2.2 cm2 Ao V2 VTI: 36.0 cm LEONEL(V,D): 2.1 cm2 sev ratio: 0.57 LEONEL indexed to BSA (cm^2/m^2): 1.1 MV E max abad: 61.6 cm/sec TR max abad: 316.8 cm/sec MV A max abad: 98.0 cm/sec TR max P.2 mmHg MV E/A: 0.63 PA V2 max: 130.4 cm/sec Med Peak E' Abad: 7.1 cm/sec PA V2 mean: 90.0 cm/sec E/E' med: 8.7 PA mean P.6 mmHg Lat Peak E' Abad: 8.2 cm/sec PA pr(Accel): 46.5 mmHg E/E' lat: 7.5 E/e' average: 8.1 MV dec time: 0.17 sec SV(LVOT): 79.2 ml Reading Physician:04:39 PM
[2022-12-27 18:07] LABS: PTT Partial Thromboplastin Tim 123 SECONDS (26-36)
--- NOTE | 2022-12-27 18:27 | PC.NURSE ---
Addendum entered by Mckenna Villalobos R.N. 12/27/22 18:51: at 1845 heparin drip restarted at 800 units/hr at 16ml/hr Original Note: at 1815 PTT 123. heparin drip stopped x 30 mins.
--- NOTE | 2022-12-27 18:39 | P.HP_ITS ---
History of Present Illness History of Present Illness Date Patient Seen: 12/27/22 Time Patient Seen: 18:39 Chief complaint: SOB x1wk Narrative: Patient is a 77-year-old with history of asthma otherwise relatively healthy who is a patient of my partner Dr. Connolly who presented with increased short of breath. Patient has not been feeling well for the last couple 2-3 weeks. And felt like she is slowly been getting worse with her breathing. This has become increasingly worse over the last week and today felt as if she could hardly get her breath with any movement. Patient has had no chest pain. No orthopnea no PND. She is not had any fevers or chills no real cough. And just basically is becoming more and more frequently short of breath. Patient has not had any history of long travels. She has no history of cancer. She has no history of trauma. She is not had any leg pain. No abdominal pain. Otherwise has felt well. No other changes or complaints. She has asthma and has had issues with that in the past but has not had any recently she is been using her medicine and this feels completely different than what she usually feels. Her calves do not hurt. And she is not noticed any swelling or redness. [facility] Medical History Allergic rhinitis (Unknown) Ankle pain (Unknown) Asthma (Unknown) Asthma (Unknown) Carpal tunnel syndrome (Unknown) Cataracts, bilateral (~2014) Chronic back pain (Unknown) Depression Depression, controlled Eczema (Unknown) Foot pain (Unknown) Fractures (Unknown) Glaucoma (2012) Heavy menstrual period (~1958) Hyperlipemia (Unknown) Hypertension (Unknown) Lumbar disc disease (Unknown) Osteopenia (Unknown) Painful menstrual periods (~1958) Shoulder pain (Unknown) Surgical History History of left hip replacement (2015) Hx of appendectomy (2016) Hx of cataract surgery (2014) Hx of tonsillectomy (~1953) Family History Child Age: 44 Heart disease Hypertension Stroke Mother Hypertension Stroke High cholesterol Father Heart disease Grandmother Heart disease Grandmother No problems noted. Social History marital status: household members: spouse occupational status: employed Smoking Status: Former smoker Tobacco: How many years used: 5 alcohol intake: current substance use type: does not use Meds Home Medications and Allergies Home Medications Medication Instructions Recorded Confirmed Type albuterol sulfate 90 mcg/actuation 2 puff INH Q4HP PRN Shortness Of 06/15/17 12/27/22 History aerosol inhaler (Ventolin HFA) Breath ##0 aspirin 81 mg tablet,delayed 81 mg PO DAILY 09/11/17 12/27/22 History release (Adult Low Dose Aspirin) Vitamin D3 1 cap PO DAILY 12/03/17 12/27/22 History multivitamin 1 tab PO DAILY 12/03/17 12/27/22 History Magnesium 1 dose DAILY 03/01/18 12/27/22 History simvastatin 20 mg tablet 20 mg PO BEDTIME 03/01/18 12/27/22 History allopurinol 300 mg tablet 300 mg PO DAILY 11/05/19 12/27/22 History bupropion HCl 300 mg 24 hr tablet, 300 mg PO DAILY 11/05/19 12/27/22 History extended release lisinopril 20 mg tablet 20 mg PO DAILY 11/05/19 12/27/22 History biotin 1 mg capsule 1 mg PO DAILY 08/19/20 12/27/22 History calcium carbonate 500 mg calcium 500 mg PO DAILY 08/19/20 12/27/22 History (1,250 mg) chewable tablet (Calcium 500) propranolol 10 mg tablet 10 mg PO DAILY 12/27/22 12/27/22 History sertraline 50 mg tablet 50 mg PO DAILY 12/27/22 12/27/22 History Allergies Allergy/AdvReac Type Severity Reaction Status Date / Time peanut [PEANUT] Allergy Severe ASTHMA Verified 02/06/22 10:03 REACTION Sulfa (Sulfonamide Allergy Severe WELTS Verified 02/06/22 10:03 Antibiotics) [SULFA (SULFONAMIDE ANTIBIOTICS)] oyster extract Allergy Intermediate Mild Verified 02/06/22 10:03 [OYSTER EXTRACT] throat swelling Penicillins [PENICILLINS] Allergy Mild DIARRHEA Verified 02/06/22 10:03 morphine [MORPHINE] AdvReac Mild NAUSEA, Verified 02/06/22 10:03 DID NOT WORK FOR PAIN Review of Systems Review of Systems Narrative: All negative except above Exam Vital Signs (past 8 hours): - 12/27/22 10:40 12/27/22 10:42 12/27/22 10:44 Temperature Pulse Rate 101 H 101 H 100 H Respiratory Rate 15 17 18 Blood Pressure Pulse Oximetry 94 93 93 Oxygen Delivery Method Oxygen Flow Rate 12/27/22 10:46 12/27/22 10:48 12/27/22 10:50 Temperature Pulse Rate 100 H 101 H 101 H Respiratory Rate 15 17 29 H Blood Pressure Pulse Oximetry 93 94 94 Oxygen Delivery Method Oxygen Flow Rate 12/27/22 10:52 12/27/22 10:54 12/27/22 10:56 Temperature Pulse Rate 109 H 113 H 104 H Respiratory Rate 29 H 31 H 23 Blood Pressure Pulse Oximetry 86 L 95 Oxygen Delivery Method Room Air Oxygen Flow Rate 12/27/22 10:58 12/27/22 11:00 12/27/22 11:00 Temperature Pulse Rate 99 H 98 H Respiratory Rate 31 H 18 Blood Pressure 168/101 H Pulse Oximetry 96 96 Oxygen Delivery Method Nasal Cannula Nasal Cannula Oxygen Flow Rate 4 4 12/27/22 11:27 12/27/22 11:27 12/27/22 11:30 Temperature Pulse Rate 99 H Respiratory Rate 21 Blood Pressure 162/93 H 164/95 H Pulse Oximetry 95 Oxygen Delivery Method Oxygen Flow Rate 12/27/22 11:30 12/27/22 12:00 12/27/22 12:00 Temperature Pulse Rate 99 H 97 H Respiratory Rate 18 19 Blood Pressure 151/90 H Pulse Oximetry 96 95 Oxygen Delivery Method Oxygen Flow Rate 12/27/22 12:30 12/27/22 12:30 12/27/22 13:00 Temperature Pulse Rate 96 H Respiratory Rate 19 Blood Pressure 169/92 H 161/86 H Pulse Oximetry 95 Oxygen Delivery Method Nasal Cannula Oxygen Flow Rate 4 12/27/22 13:00 12/27/22 13:30 12/27/22 13:30 Temperature Pulse Rate 95 H 93 H Respiratory Rate 21 17 Blood Pressure 157/91 H Pulse Oximetry 95 94 Oxygen Delivery Method Oxygen Flow Rate 12/27/22 14:00 12/27/22 14:00 12/27/22 15:00 Temperature 97.5 F L Pulse Rate 90 92 H Respiratory Rate 16 17 Blood Pressure 150/94 H 150/97 H Pulse Oximetry 96 98 Oxygen Delivery Method Oxygen Flow Rate 4 12/27/22 13:42 Temperature Pulse Rate Respiratory Rate Blood Pressure Pulse Oximetry Oxygen Delivery Method Nasal Cannula Oxygen Flow Rate Oxygen Delivery Method Nasal Cannula Oxygen Flow Rate 4 Narrative Exam Narrative: Alert elderly female with oxygen on in no acute respiratory distress HEENT exam shows mucous membranes moist neck supple without adenopathy JVD or bruits lungs are clear heart is regular rate and rhythm abdomen is soft positive bowel sounds nontender extremities without edema she does have a little tenderness in her left knee cap but otherwise no change. Objective Labs 12/27/22 09:35 12/27/22 09:35 Labs: Laboratory Results - last 24 hr 12/27/22 12/27/22 12/27/22 09:35 09:35 09:35 WBC 9.5 RBC 4.83 Hgb 14.5 Hct 43.7 MCV 90.6 MCH 30.0 MCHC 33.1 RDW 15.6 H Plt Count 254 Neut % (Auto) 68.7 Lymph % (Auto) 21.1 L Overton % (Auto) 5.0 Eos % (Auto) 4.0 Baso % (Auto) 1.2 Neut # (Auto) 6500 Lymph # (Auto) 2000 Overton # (Auto) 500 Eos # (Auto) 400 Baso # (Auto) 100 PT INR APTT D-Dimer 6003 H Sodium 141 Potassium 4.1 Chloride 106 Carbon Dioxide 26 BUN 17 Creatinine 0.82 Estimated GFR > 60 BUN/Creatinine Ratio 20.7 Glucose 116 H Calcium 9.4 Total Bilirubin 0.5 AST 24 ALT 22 Alkaline Phosphatase 92 Total Creatine Kinase Troponin I NT-Pro-B Natriuret Pep 60 Total Protein 7.4 Albumin 4.2 Globulin 3.2 Albumin/Globulin Ratio 1.3 Lipase 98 Procalcitonin 0.06 SARS-CoV-2 (PCR) Influenza A (RT-PCR) Influenza B (RT-PCR) RSV (PCR) 12/27/22 12/27/22 12/27/22 09:35 09:40 09:45 WBC RBC Hgb Hct MCV MCH MCHC RDW Plt Count Neut % (Auto) Lymph % (Auto) Overton % (Auto) Eos % (Auto) Baso % (Auto) Neut # (Auto) Lymph # (Auto) Overton # (Auto) Eos # (Auto) Baso # (Auto) PT 11.7 INR 1.0 APTT 31 D-Dimer Sodium Potassium Chloride Carbon Dioxide BUN Creatinine Estimated GFR BUN/Creatinine Ratio Glucose Calcium Total Bilirubin AST ALT Alkaline Phosphatase Total Creatine Kinase 79 Troponin I < 0.012 NT-Pro-B Natriuret Pep Total Protein Albumin Globulin Albumin/Globulin Ratio Lipase Procalcitonin SARS-CoV-2 (PCR) Negative Influenza A (RT-PCR) Flu a negative Influenza B (RT-PCR) Flu b negative RSV (PCR) Negative 12/27/22 17:15 WBC RBC Hgb Hct MCV MCH MCHC RDW Plt Count Neut % (Auto) Lymph % (Auto) Overton % (Auto) Eos % (Auto) Baso % (Auto) Neut # (Auto) Lymph # (Auto) Overton # (Auto) Eos # (Auto) Baso # (Auto) PT INR APTT 123 H* D D-Dimer Sodium Potassium Chloride Carbon Dioxide BUN Creatinine Estimated GFR BUN/Creatinine Ratio Glucose Calcium Total Bilirubin AST ALT Alkaline Phosphatase Total Creatine Kinase Troponin I NT-Pro-B Natriuret Pep Total Protein Albumin Globulin Albumin/Globulin Ratio Lipase Procalcitonin SARS-CoV-2 (PCR) Influenza A (RT-PCR) Influenza B (RT-PCR) RSV (PCR) Assessment & Plan Assessment & Plan narrative: Pulmonary emboli bilateral. Patient has some changes on her echo for right heart issues but nothing significant. Does not need to be transferred. Cause i s unclear. She has no real inciting event. We discussed that this probably will mean she will be on longstanding anticoagulation. Question is whether or not this could be some type of cancerous response and certainly given history and physical there is no definitive abnormality. Has a history of breast hyperplasia no evidence breast cancer back in 21. Did not think this is significant but will need to be followed. She may need to be workup that in the future 2. Probably will need a press tender short goods as an outpatient. Patient does understand this. Patient was started on heparin in the emergency room will continue through the night and re-evaluate in a.m.. Consider switch to 1 of the newer anticoagulation. Patient understands. And appreciates. Certainly with bilateral pulmonary embolus this is a seriously life-threatening condition and hospitalization is important for that follow-up. Respiratory failure acute although the question is whether has not been going on for a couple of weeks. Certainly has started that that time. Patient with an O2 requirement that when she gets treated even when she is 91% she drops her respiratory rate and is more comfortable. At this point will continue treating with O2. Will see how she goes and how she does. Hopefully as we treat her pulmonary embolus which is certainly the cause of this and not related to her asthma she will improve. The possibility that she goes home on oxygen. Will see what the next 24 hours brings. Asthma. Not actively having an issue. We discussed this. She understands will use med regular medicine. Depression. No change at this time. Will continue to follow. Hypertension. Continue CRISTO inhibitor. Doing well. Code status. Full. Discussed extensively. GI prophylaxis. Should be stable at this time. Eating well. Disposition. Patient will probably be admitted at least 2 days will see how things go over the next 24 hours. Would be good if we were limiting O2 need prior to discharge and respiratory failure. Patient is actively a significant risk for worsening if untreated and is important that she was admitted to the hospital. 85 minutes spent reviewing her chart discussing with Dr. owusu patient orders and dictation Quality VTE Deep Vein Thrombosis/Pulmonary Embolism Present on Admission: No
--- NOTE | 2022-12-27 18:47 | PC.NURSE ---
Patient arrived from ED this afternoon at 1440, she denies pain. A&OX4, slightly hypertensive, SOB with exertion, and limited activity tolerance. She tolerates meals well. Heparin drip initially at 1000 units/hr or 20ml/hr. Patient remains NSR on telemetry. PTT this evening due at 1700.
[2022-12-27] MEDS: HEPARIN DRIP 25,000 UNIT/500 ML IV.SOLN 16 UNIT IV (18:56)
[2022-12-27] MEDS: ALBUTEROL 2.5 MG/3 ML NEB (ADULT) INH (20:11)
[2022-12-27] MEDS: PROPRANOLOL 10 MG TABLET PO (20:19)
[2022-12-27] MEDS: ATORVASTATIN 20 MG TABLET 10 MG PO (20:20)
[2022-12-27] MEDS: SODIUM CHLORIDE 0.9% FLUSH 10 ML IV (20:20)
[2022-12-28] MEDS: ALBUTEROL 2.5 MG/3 ML NEB (ADULT) INH ×2 (00:08→11:29)
[2022-12-28 00:34] LABS: PTT Partial Thromboplastin Tim 56 SECONDS (26-36)
--- NOTE | 2022-12-28 01:00 | PC.NURSE ---
Patient is alert and oriented. Breath sounds with expiratory squeak/wheeze. On oxygen at 4L/min at shift change with sat of 98% but RT here at time of assessment and gave neb Rx and decresed oxygen to 3L/min per NC and sats maintaining at 95%; on continuous oximetry. Stated she is SOB with exertion and occasionally at rest but is able to speak in complete sentences. HRR w/telemetry reading of SR; denied any chest pain/discomfort. Denied nausea. BT hypoactive and abdomen is soft. Is using BSC to void and denied dysuria but reports she sometimes dribbles but declined offer of incontinent pad. Is able to turn herself in bed. Provided SBA when up to BSC. Denied any pain/discomfort. Is wearing bilateral calf SCD's. Fall risk score is moderate but calls appropriately for assistance so bed alarm is not activated at this time.
[2022-12-28 03:23] VITALS: BP 140/89; PULSE 78; RESP 18; TEMP 36.2; O2SAT 96
[2022-12-28 06:19] LABS: Hematocrit 41.2 % (36-46); Hemoglobin 13.7 g/dL (12.0-16.0); Platelet Count 221 X10^3/uL (150-400)
[2022-12-28 06:29] LABS: PTT Partial Thromboplastin Tim 62 SECONDS (26-36)
[2022-12-28 06:46] LABS: Alanine Aminotransferase 19 IU/L (<35); Albumin 3.8 g/dL (3.5-5.0); Albumin Globulin Ratio 1.3 (1.0-2.8); Alkaline Phosphatase 87 U/L (38-126); Aspartate Aminotransferase 22 IU/L (14-36); BUN Creatinine Ratio 18.6 (6-22); Bilirubin Total 0.4 mg/dL (0.2-1.3); Blood Urea Nitrogen 16 mg/dL (7-17); Carbon Dioxide 27 mmol/L (22-32); Chloride 105 mmol/L (98-107); Estimated Glomerular Filt Rate > 60 mL/min (>60); Globulin 2.9 g/dL (1.7-4.1); Glucose 109 mg/dL (80-110); HEMOLYSIS < 15 (0-50); Sodium 139 mmol/L (137-145); Total Protein 6.7 g/dL (6.3-8.2)
[2022-12-28 06:53] LABS: NT-proBNP (BNP-Adult 18+) 704 pg/mL (<450)
[2022-12-28 08:19] VITALS: BP 120/70; PULSE 77
[2022-12-28] MEDS: SERTRALINE 50 MG TABLET PO (08:19)
[2022-12-28] MEDS: lisinopriL 20 MG TABLET PO (08:19)
[2022-12-28] MEDS: buPROPion XL 150 MG TAB 300 MG PO (08:19)
[2022-12-28] MEDS: allopurinoL 100 MG TABLET 300 MG PO (08:19)
[2022-12-28] MEDS: PROPRANOLOL 10 MG TABLET PO (08:19)
[2022-12-28] MEDS: SODIUM CHLORIDE 0.9% FLUSH 10 ML IV (08:21)
[2022-12-28 08:28] VITALS: BP 120/70; PULSE 86; RESP 18; TEMP 36.4; O2SAT 94
[2022-12-28 11:29] VITALS: PULSE 88; RESP 18; O2SAT 92
--- NOTE | 2022-12-28 11:32 | CM.DANOTE ---
Initial DCP Assessment Note Pt is a 77 yo female, resident of [place], arrives with shortness of breath for a week. Patient admitted for management of acute resp failure and bilateral Pulmonary emboli, placed on heparin drip today and O2. According to nursing, Dr Connolly will reevaluate medical plan of care this afternoon, possible discharge home w/new Rx for anticoagulation. PCP: Sae Connolly Payer: [employer] Reviewed chart, met w/patient briefly to introduce self and role. 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 No barriers identified at this time to patient's safe discharge home w/family to assist; close outpatient f/u recommended. CM team will plan to follow closely in case any DC needs or concerns arise. JENNIFER Mayfield Discharge Planning/Care Management CM Discharge Assessment Start: 12/28/22 11:29 Freq: Status: Active Protocol: Document 12/28/22 11:29 TURNER (Rec: 12/28/22 11:32 TURNER [id number]) Discharge Planning Assessment Assigned Sexual Health Physician JENNIFER Levy DPOA/Assigned Designee Name Ollie Barnard, spouse Contact Information [phone] Advance Directives? Yes Advance Directives on File No History Provided By Patient,Medical Record Prior Living Arrangements House Household Members spouse Type of transporation used prior to Drives own vehicle admit Independent with ADL's Yes Is patient alert and oriented? Yes Discharge Plan Home Transportation Arrangement Spouse Referrals Initiated None needed
[2022-12-28 12:38] LABS: PTT Partial Thromboplastin Tim 62 SECONDS (26-36)
[2022-12-28] MEDS: APIXABAN 5 MG TABLET PO (15:37)
[2022-12-28 16:00] VITALS: BP 121/70; PULSE 79; RESP 16; TEMP 36.7; O2SAT 94
--- NOTE | 2022-12-28 18:17 | PM.DS.1 ---
History of Present Illness History of Present Illness Date Patient Seen: 12/28/22 Time Patient Seen: 08:50 Chief complaint: SOB x1wk Narrative: Pt is feeling better today she is satting ok on room air at rest and is able to ambulate short distances. At most she was needing only 1L of O2 via NC which she was able to take off by this afternoon. She is eating well and feeling ok. 24 hours of heparin drip was completed and she is transitioned over to eliquis 5mg dose this afternoon without any difficulty. This is her first time ever having a PE and there is no obvious inciting trigger. She is feeling perky and working on her ser[employer]oskin ([employer]) for Monday. Discharge Providers Provider Date of admission: 12/27/22 13:37 Discharge Date: 12/28/22 Primary care physician: Sae Connolly MD Consults: 12/27/22 13:35 Consult to Physician Stat Comment: Consulting Provider: Sae Connolly Reason for consultation: Admission Has provider been notified: No 12/27/22 13:36 Consult to Physician Urgent Comment: Consulting Provider: Denilson Moyer Reason for consultation: Admission Has provider been notified: Yes Discharge provider: Sae Connolly MD Summary Hospital Course Discharge Diagnosis: #pulmonary embolism Hospital Course: 77-year-old with history of asthma otherwise relatively healthy presented with increased shortness of breath in setting of worsening malaise over last 2-3 weeks and breathing issues. acute SOB on any exertion. Found to have bilateral PEs without any obvious inciting injury or context. Did well on heparin drip with only mild hypoxia responding to slight O2 supplementation. By DoD she was doing ok on RA and felt ready to go home on eliquis. Discussed return precautions and need to continue anticoagulation for the foreseeable future - at least 3 months - to treat and prevent reoccurence. Status at Discharge Cognitive/behavioral status at discharge: at baseline, oriented Functional status at discharge: uses cane/walker Overall status at discharge: patient is progressing back to baseline Exam Vital Signs (past 8 hours): - 12/28/22 11:29 12/28/22 16:00 Temperature 98.1 F Pulse Rate 88 79 Respiratory Rate 18 16 Blood Pressure 121/70 Pulse Oximetry 92 94 Oxygen Delivery Method Room Air Oxygen Flow Rate 1.5 Oxygen Delivery Method Room Air Oxygen Flow Rate 1.5 Narrative Exam Narrative: cheerful alert sitting up in chair Const Other: well developed well nourished HENMT Other: normocephalic atraumatic Resp Other: moving air well bilaterally, clear to auscultation grossly Cardio Other: regular rate and rhythm, S1/S2 GI Other: soft nontender active bowel sounds Extrem Other: moving all extremities, no pedal edema Objective Labs 12/28/22 06:00 12/28/22 06:00 Labs: Laboratory Results - last 24 hr 12/28/22 12/28/22 12/28/22 00:15 06:00 12:04 Hgb 13.7 Hct 41.2 Plt Count 221 APTT 56 H D 62 H 62 H Sodium 139 Potassium 4.0 Chloride 105 Carbon Dioxide 27 BUN 16 Creatinine 0.86 Estimated GFR > 60 BUN/Creatinine Ratio 18.6 Glucose 109 Calcium 9.0 Total Bilirubin 0.4 AST 22 ALT 19 Alkaline Phosphatase 87 NT-Pro-B Natriuret Pep 704 H Total Protein 6.7 Albumin 3.8 Globulin 2.9 Albumin/Globulin Ratio 1.3 PFSH Medical History Allergic rhinitis (Unknown) Ankle pain (Unknown) Asthma (Unknown) Asthma (Unknown) Carpal tunnel syndrome (Unknown) Cataracts, bilateral (~2014) Chronic back pain (Unknown) Depression Depression, controlled Eczema (Unknown) Foot pain (Unknown) Fractures (Unknown) Glaucoma (2012) Heavy menstrual period (~195) Hyperlipemia (Unknown) Hypertension (Unknown) Lumbar disc disease (Unknown) Osteopenia (Unknown) Painful menstrual periods (~1958) Shoulder pain (Unknown) Surgical History History of left hip replacement (2016) Hx of appendectomy (2016) Hx of cataract surgery (2014) Hx of tonsillectomy (~1953) Family History Child Age: 44 Heart disease Hypertension Stroke Mother Hypertension Stroke High cholesterol Father Heart disease Grandmother Heart disease Grandmother No problems noted. 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 #hx of asthma not in current exacerbation, monitor #MDD stable contine home meds #hypertension stable continue dispo: discharge home to f/up with me as outpt on eliquis PCP: Mohsen Time spent: 40 min Discharge Plan Discharge Plan Patient Disposition: Home Discharge orders & Medications Prescriptions: New Eliquis DVT-PE Treat 30D Start 5 mg (74 tabs) tablets,dose pack See Rx Instructions .ROUTE .COMPLEX Qty: 74 0RF Rx Instructions: orally per package directions Continued multivitamin Tablet 1 tab PO DAILY Patient Comments: 1 tab PO QDAY Vitamin D3 1 cap PO DAILY Patient Comments: 1 softgel PO QDAY aspirin [Adult Low Dose Aspirin] 81 mg tablet,delayed release (DR/EC) 81 mg PO DAILY albuterol sulfate [Ventolin HFA] 90 MCG/PUFF HFA aerosol inhaler 2 puff INH Q4HP PRN (Reason: Shortness Of Breath) Qty: 0 lisinopril 20 mg tablet 20 mg PO DAILY bupropion HCl 300 mg tablet extended release 24 hr 300 mg PO DAILY allopurinol 300 mg tablet 300 mg PO DAILY calcium carbonate [Calcium 500] 500 mg calcium (1,250 mg) tablet,chewable 500 mg PO DAILY biotin 1 mg capsule 1 mg PO DAILY simvastatin 20 mg tablet 20 mg PO BEDTIME Magnesium 1 dose DAILY sertraline 50 mg Tablet 50 mg PO DAILY propranolol 10 mg tablet 10 mg PO DAILY Follow up/Referrals: Sae Connolly MD [Primary Care Provider] - Visit Report/Discharge Packet Stand Alone Forms: Patient Portal/API, Stroke Signs & Symptoms Discharge Data Primary Care Provider: Sae Connolly Quality VTE Deep Vein Thrombosis/Pulmonary Embolism Present on Admission: No
== END 2022-12-28 19:25 | disposition home or self-care (01) | DRG 175 ==
LOC: ED 13:29 → AC 13:38
PROVIDERS: Admitting Provider Family Medicine; Emergency Provider Emergency Medicine; Family Provider Family Medicine; PCP Family Medicine; Referring Provider Emergency Medicine; Visit Provider Family Medicine
DX: I26.99 Other pulmonary embolism without acute cor pulmonale (principal); J96.01 Acute respiratory failure with hypoxia; I10 Essential (primary) hypertension; J45.909 Unspecified asthma, uncomplicated; F32.9 Major depressive disorder, single episode, unspecified; Z87.891 Personal history of nicotine dependence
CPT/HCPCS: 0241U; 36415; 71045; 71275; 80053; 82550; 83690; 83880; 84145; 84484; 85014; 85018; 85025; 85049; 85379; 85610; 85730; 93005; 93306; 94640; 94762; 96365; 96366; 96376; 99285; J1644; J7613

== ENCOUNTER → 2023-04-24 13:47 | Outpatient (CLI) | payer MEDICARE, SELFPAY ==
[2022-12-27 17:55] VITALS: BMI 33.7
--- NOTE | 2023-04-24 13:50 | DI.US.S_ITS ---
PROCEDURE: US SOFT TISSUE HEAD AND NECK INDICATIONS: Localized swelling, mass and lump, head TECHNIQUE: Real-time scanning was performed of the neck region of interest, with image documentation. Color Doppler was also utilized. COMPARISON: None. FINDINGS: At the site of clinical concern, there is a nonvascular focus seen that measures 11 x 5 x 6 mm. This is seen adjacent to the regional vessels. IMPRESSION: Nonspecific nonvascular focus seen at the site of clinical concern. Differential diagnosis includes a lymph node. If clinically appropriate, please consider a contrast enhanced CT through the area for further evaluation. Dictated by: Deejay Solorzano M.D. on 04/24/2023 at 17:10 Approved by: Deejay Solorzano M.D. on 04/24/2023 at 17:11
== END ==
LOC: US 13:48
PROVIDERS: Family Provider Family Medicine; PCP Family Medicine; Referring Provider Family Medicine; Visit Provider Family Medicine
DX: R22.0 Localized swelling, mass and lump, head (principal)
CPT/HCPCS: 76536

== ENCOUNTER → 2023-06-29 10:00 | Outpatient (CLI) | payer MEDICARE, SELFPAY ==
[2022-12-27 17:55] VITALS: BMI 33.7
--- NOTE | 2023-06-29 10:04 | DI.RAD.S_ITS ---
PROCEDURE: XR FINGER LT MIN 2V INDICATIONS: PAIN IN LEFT THUMB TECHNIQUE: AP hand, 2 views of the 1st finger(s) acquired. COMPARISON: None. FINDINGS: Bones: No fractures or dislocations. No suspicious bony lesions. Moderate degenerative joint disease at the triscaphe joint and the 1st carpometacarpal joint joint. There is periarticular bony erosion at the triscaphe joint. Soft tissues: No suspicious soft tissue calcifications. IMPRESSION: 1. No acute bony abnormality. 2. Moderate osteoarthritic changes. 3. 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 Dictated by: David Alcantar M.D. on 06/29/2023 at 11:26 Approved by: David Alcantar M.D. on 06/29/2023 at 11:28
== END ==
LOC: RAD 10:02
PROVIDERS: Family Provider Family Medicine; PCP Family Medicine; Referring Provider Family Medicine; Visit Provider Family Medicine
DX: M85.842 Other specified disorders of bone density and structure, left hand (principal); M79.645 Pain in left finger(s)
CPT/HCPCS: 73140

== ENCOUNTER 2023-08-29 17:49 | Emergency (ER) | payer MEDICARE, SELFPAY ==
[2022-12-27 17:55] VITALS: BMI 33.7
[2023-08-29 18:01] VITALS: BP 156/89; PULSE 96; RESP 16; TEMP 36.7; O2SAT 96; BMI 34.2
--- NOTE | 2023-08-29 18:05 | DI.RAD.S_ITS ---
PROCEDURE: XR SHOULDER LT MIN 2V INDICATIONS: fall left shoulder pain TECHNIQUE: 2 views of the shoulder were acquired. COMPARISON: None. FINDINGS: Bones: Mildly displaced 2 part fracture of the left humeral head. No suspicious bony lesions. Visualized ribs appear intact. Acromioclavicular joint is intact. Soft tissues: No suspicious soft tissue calcifications. IMPRESSION: Minimally displaced left humeral head fracture. Approved by: Gayathri Dee M.D.,Ph.D. on 08/29/2023 at 20:10
--- NOTE | 2023-08-29 18:06 | DI.RAD.S_ITS ---
PROCEDURE: XR ELBOW LT MIN 3V INDICATIONS: Fall onto left side TECHNIQUE: 4 views of the elbow were acquired. COMPARISON: None. FINDINGS: Bones: Suboptimal positioning due to patient factors. No definite acute fracture identified. Soft tissues: No elbow joint effusion. No suspicious soft tissue calcifications. IMPRESSION: Suboptimal positioning due to patient factors. No definite acute fracture identified. If symptoms persist with conservative management, consider repeat radiographs in 5-7 days. Approved by: Gayathri Dee M.D.,Ph.D. on 08/29/2023 at 20:11
[2023-08-29 22:25] VITALS: PULSE 95; O2SAT 99
[2023-08-29 22:26] VITALS: BP 142/77; PULSE 94; O2SAT 96
[2023-08-29 22:30] VITALS: PULSE 94; O2SAT 94
--- NOTE | 2023-08-29 22:40 | ED_ITS ---
HPI - General Adult General Chief complaint: Extremity Injury, Upper Stated complaint: GLF Fall left shoulder injury Time Seen by Provider: 08/29/23 22:32 Source: patient Mode of arrival: Ambulatory History of Present Illness HPI narrative: 77-year-old female who is here for evaluation of a left shoulder left arm injury after tripping over some shoes at home. She landed on her left shoulder. Did not hit her head. No loss of consciousness. No neck pain. No other extremity injuries from the event. Has a difficulty moving her shoulder since that time. Has not tried anything for symptoms prior to arrival. No prior injuries Related Data Home Medications Medication Instructions Recorded Confirmed albuterol sulfate 90 mcg/actuation 2 puff INH Q4HP PRN Shortness Of 06/15/17 12/27/22 aerosol inhaler (Ventolin HFA) Breath ##0 aspirin 81 mg tablet,delayed 81 mg PO DAILY 09/11/17 12/27/22 release (Adult Low Dose Aspirin) Vitamin D3 1 cap PO DAILY 12/03/17 12/27/22 multivitamin 1 tab PO DAILY 12/03/17 12/27/22 Magnesium 1 dose DAILY 03/01/18 12/27/22 simvastatin 20 mg tablet 20 mg PO BEDTIME 03/01/18 12/27/22 allopurinol 300 mg tablet 300 mg PO DAILY 11/05/19 12/27/22 bupropion HCl 300 mg 24 hr tablet, 300 mg PO DAILY 11/05/19 12/27/22 extended release lisinopril 20 mg tablet 20 mg PO DAILY 11/05/19 12/27/22 biotin 1 mg capsule 1 mg PO DAILY 08/19/20 12/27/22 calcium carbonate (Calcium 500) 500 mg PO DAILY 08/19/20 12/27/22 propranolol 10 mg tablet 10 mg PO DAILY 12/27/22 12/27/22 sertraline 50 mg tablet 50 mg PO DAILY 12/27/22 12/27/22 Previous Rx's Medication Instructions Recorded apixaban 5 mg (74 tabs) tablets in See Rx Instructions PO .COMPLEX 12/28/22 a dose pack (Eliquis DVT-PE Treat #74 ea 30D Start) hydrocodone 5 mg-acetaminophen 325 1 tab PO Q8H PRN pain #14 tabs 08/29/23 mg tablet Allergies Allergy/AdvReac Type Severity Reaction Status Date / Time peanut [PEANUT] Allergy Severe ASTHMA Verified 08/29/23 18:05 REACTION Sulfa (Sulfonamide Allergy Severe WELTS Verified 08/29/23 18:05 Antibiotics) [SULFA (SULFONAMIDE ANTIBIOTICS)] oyster extract Allergy Intermediate Mild Verified 08/29/23 18:05 [OYSTER EXTRACT] throat swelling Penicillins [PENICILLINS] Allergy Mild DIARRHEA Verified 08/29/23 18:05 morphine [MORPHINE] AdvReac Mild NAUSEA, Verified 08/29/23 18:05 DID NOT WORK FOR PAIN Review of Systems Constitutional Constitutional: Reports system reviewed and no additional complaints, except as documented Musculoskeletal Musculoskeletal: Reports system reviewed and no additional complaints, except as documented Integumentary/Breasts Skin/Breast: Reports system reviewed and no additional complaints, except as documented Neurologic Neurologic: Reports system reviewed and no additional complaints, except as documented Patient History Medical History Depression, controlled Depression Allergic rhinitis (Unknown) Asthma (Unknown) Eczema (Unknown) Foot pain (Unknown) Fractures (Unknown) Lumbar disc disease (Unknown) Shoulder pain (Unknown) Ankle pain (Unknown) Carpal tunnel syndrome (Unknown) Chronic back pain (Unknown) Cataracts, bilateral (~2014) Painful menstrual periods (~1958) Heavy menstrual period (~1958) Hyperlipemia (Unknown) Osteopenia (Unknown) Asthma (Unknown) Glaucoma (2012) Hypertension (Unknown) Surgical History History of left hip replacement (2015) Hx of appendectomy (2015) Hx of cataract surgery (2014) Hx of tonsillectomy (~1953) Family History Child Age: 44 Heart disease Hypertension Stroke Mother Hypertension Stroke High cholesterol Father Heart disease Grandmother Heart disease Grandmother No problems noted. Social History marital status: household members: spouse occupational status: employed Smoking Status: Former smoker Tobacco: How many years used: 5 alcohol intake: current substance use type: does not use Smoking Status: Former smoker alcohol intake frequency: a few times a month Substance Use Type: does not use Exam Initial Vital Signs Initial Vital Signs: Vital Signs Temperature 98.0 F 08/29/23 18:01 Pulse Rate 96 H 08/29/23 18:01 Respiratory Rate 16 08/29/23 18:01 Blood Pressure 156/89 H 08/29/23 18:01 Pulse Oximetry 96 08/29/23 18:01 Oxygen Delivery Method Room Air 08/29/23 18:01 Skin General: no rashes or lesions noted Extrem Other: Discomfort to palpation of the proximal humerus and left shoulder with very limited range of motion because of this. Procedures Orthopedic Splinting/Casting Injury #1: Side: left Upper Extremity Injury Location: upper arm Upper Extremity Immobilizer: sling/shoulder immobilizer Post splinting neuro exam: no change Post splinting vascular exam: no change Placed by: Provider Course Orders Ordered: Discontinued Medications Hydrocodone Bitart/Acetaminophen (Hydrocodone/Acet 5/325 Tablet) 1 tab PO NOW ONE Stop: 08/29/23 22:41 Last Admin: 08/29/23 22:55 Dose: 1 tab Documented By: ELIZABETH Hydrocodone Bitart/Acetaminophen (Hydrocodone/Acet 5/325 Prepack) 1 bottle MISC DIRECTED ONE Stop: 08/29/23 22:41 Last Admin: 08/29/23 22:56 Dose: 1 bottle Documented By: ELIZABETH Vital Signs Vital signs: Vital Signs - 8 hr 08/29/23 22:25 08/29/23 22:26 08/29/23 22:26 Temperature Pulse Rate 95 H 94 H Blood Pressure 142/77 H Pulse Oximetry 99 96 08/29/23 22:30 08/29/23 22:57 Temperature 97.6 F Pulse Rate 94 H Blood Pressure Pulse Oximetry 94 Medical Decision Making Imaging Data Extremity x-ray #1: Radiologist's Impression: PROCEDURE: XR SHOULDER LT MIN 2V INDICATIONS: fall left shoulder pain TECHNIQUE: 2 views of the shoulder were acquired. COMPARISON: None. FINDINGS: Bones: Mildly displaced 2 part fracture of the left humeral head. No suspicious bony lesions. Visualized ribs appear intact. Acromioclavicular joint is intact. Soft tissues: No suspicious soft tissue calcifications. IMPRESSION: Minimally displaced left humeral head fracture. Extremity x-ray #2: Radiologist's Impression: PROCEDURE: XR ELBOW LT MIN 3V INDICATIONS: Fall onto left side TECHNIQUE: 4 views of the elbow were acquired. COMPARISON: None. FINDINGS: Bones: Suboptimal positioning due to patient factors. No definite acute fracture identified. Soft tissues: No elbow joint effusion. No suspicious soft tissue calcifications. IMPRESSION: Suboptimal positioning due to patient factors. No definite acute fracture identified. If symptoms persist with conservative management, consider repeat radiographs in 5-7 days. [facility] Narrative Medical decision making narrative: Patient does have x-ray findings that are consistent with a proximal humerus fracture. She was neurovascularly intact. This [facility] that she [facility] with today. She was placed in his sling. Will treat with pain medication. She does understand the importance of early mobilization. Will have her contact Orthopedics for follow-up. She reports no other injuries from the event. She was given return precautions. She expressed understanding and agreement. Discharge Plan Departure Patient Disposition: Home Clinical Impression: Fracture of proximal end of left humerus Instructions: DI for Shoulder Fracture Activity Restrictions/Additional Instructions: The sling is for your comfort. We do recommend that you try to perform exercises like we discussed out of the sling as much as possible. Contact the orthopedic providers in the number provided below for follow-up. Return to the emergency department for new or worsening symptoms. Prescriptions: New hydrocodone-acetaminophen 5-325 mg tablet 1 tab PO Q8H PRN (Reason: pain) Qty: 14 0RF No Action multivitamin Tablet 1 tab PO DAILY Patient Comments: 1 tab PO QDAY Vitamin D3 1 cap PO DAILY Patient Comments: 1 softgel PO QDAY aspirin [Adult Low Dose Aspirin] 81 mg tablet,delayed release (DR/EC) 81 mg PO DAILY albuterol sulfate [Ventolin HFA] 90 MCG/PUFF HFA aerosol inhaler 2 puff INH Q4HP PRN (Reason: Shortness Of Breath) Qty: 0 lisinopril 20 mg tablet 20 mg PO DAILY bupropion HCl 300 mg tablet extended release 24 hr 300 mg PO DAILY allopurinol 300 mg tablet 300 mg PO DAILY calcium carbonate [Calcium 500] 500 mg calcium (1,250 mg) tablet,chewable 500 mg PO DAILY biotin 1 mg capsule 1 mg PO DAILY simvastatin 20 mg tablet 20 mg PO BEDTIME Magnesium 1 dose DAILY sertraline 50 mg Tablet 50 mg PO DAILY propranolol 10 mg tablet 10 mg PO DAILY Eliquis DVT-PE Treat 30D Start 5 mg (74 tabs) tablets,dose pack See Rx Instructions .ROUTE .COMPLEX Qty: 74 0RF Rx Instructions: orally per package directions Referrals: Emilie Qiu MD [Physician] - Sae Connolly MD [Primary Care Provider] - Stand Alone Forms: Patient Portal/API
[2023-08-29] MEDS: HYDROCODONE/ACET 5/325 TABLET 1 TAB PO (22:55)
[2023-08-29] MEDS: HYDROCODONE/ACET 5/325 PREPACK 1 BOTTLE MISC (22:56)
[2023-08-29 22:57] VITALS: TEMP 36.4
== END 2023-08-29 22:58 | disposition home or self-care (01) ==
PROVIDERS: Emergency Provider Emergency Medicine; Family Provider Family Medicine; PCP Family Medicine
DX: S42.202A Unspecified fracture of upper end of left humerus, initial encounter for closed fracture (principal); W01.0XXA Fall on same level from slipping, tripping and stumbling without subsequent striking against object, initial encounter
CPT/HCPCS: 73030; 73080; 99283; 99284

== ENCOUNTER → 2023-09-01 11:08 | Outpatient (CLI) | payer MEDICARE, SELFPAY ==
[2022-12-27 17:55] VITALS: BMI 33.7
--- NOTE | 2023-09-01 11:09 | DI.CT.S_ITS ---
PROCEDURE: CT ABDOMEN PELVIS WO/W CON INDICATIONS: HEMATURIA TECHNIQUE: Optional 5 mm thick noncontrast images acquired from the diaphragm to the symphysis pubis. After the administration of intravenous contrast, 5 mm thick images acquired from the diaphragm to the symphysis pubis after a 10-minute delay. 2 mm thick coronal and sagittal reformats were then performed of the kidneys and ureters. For radiation dose reduction, the following was used: automated exposure control, adjustment of mA and/or kV according to patient size. COMPARISON: None. FINDINGS: Image quality: Pelvis obscured by metallic artifact. Kidneys and Ureters: Both kidneys are normal in size. No hydronephrosis. Moderate burden of punctate, bilateral nonobstructing nephrolithiasis. No perinephric fat stranding. There is normal bilateral renal enhancement. Renal calyces appear normal in morphology when filled with contrast. Opacified portions of both ureters demonstrate normal caliber Bladder: Dependent nodularity within the urinary bladder, partially visualized due to metallic artifact. This measures 7 mm on the right and 5 mm on the left (series 6, image 184). OTHER: Lower chest: Unremarkable. Liver: No solid mass. Hepatic cysts. Hepatic steatosis. Gallbladder: No radiopaque gallstones or wall thickening. Biliary ducts: No biliary dilation. Pancreas: No ductal dilation. Spleen: Size is within normal limits. Adrenal Glands: No adrenal nodules. Stomach and Bowel: Normal colonic caliber, without significant wall thickening. Colonic diverticulosis without evidence of diverticulitis. Peritoneum: No abnormal intraperitoneal fluid. No free air. Ventral Wall: Small umbilical hernia containing fat. Abdominal Nodes: No retroperitoneal or mesenteric adenopathy by size criteria. Vessels: Aorta and inferior vena cava are normal in size. PELVIS: Pelvic Organs: Unremarkable. Pelvic Nodes: No enlarged lymph nodes. Miscellaneous: No inguinal hernias are seen. Bones: No aggressive osseous abnormality. Bilateral total hip arthroplasties. Degenerative disc disease of the lumbar spine. IMPRESSION: Moderate burden of bilateral nonobstructing nephrolithiasis, which are punctate. Nodularity within the posterior bladder wall, partially obscured by metallic artifact. Differential includes malignancy versus artifact. Recommend direct visualization with cystoscopy if not performed in the past. Other chronic findings as above. Dictated by: Abdoul Cramer M.D. on 09/01/2023 at 12:40 Approved by: Abdoul Cramer M.D. on 09/01/2023 at 12:50
== END ==
PROVIDERS: PCP Family Medicine; Referring Provider Registered Nurse; Visit Provider Registered Nurse
DX: R31.9 Hematuria, unspecified (principal); K76.89 Other specified diseases of liver; K76.0 Fatty (change of) liver, not elsewhere classified; K57.90 Diverticulosis of intestine, part unspecified, without perforation or abscess without bleeding; N20.0 Calculus of kidney; K42.9 Umbilical hernia without obstruction or gangrene; M47.816 Spondylosis without myelopathy or radiculopathy, lumbar region; Z96.643 Presence of artificial hip joint, bilateral
CPT/HCPCS: 74178; Q9967

== ENCOUNTER → 2023-09-14 10:02 | Outpatient (CLI) | payer MEDICARE, SELFPAY ==
[2022-12-27 17:55] VITALS: BMI 33.7
--- NOTE | 2023-09-14 10:04 | DI.RAD.S_ITS ---
PROCEDURE: XR DEXA AXIAL SKELETON INDICATIONS: POSTMENOPAUSAL STATUS COMPARISON: [facility], CR, XR DEXA AXIAL SKELETON, 05/08/2020, 13:20. FINDINGS: Lumbar Spine: Bone mineral density 1.006 g/cm2, T score -0.4. Prior DEXA was performed using dissimilar scan type or analysis method. Patient with bilateral hip arthroplasties and recent left arm fracture, so these areas could not be used for evaluation. Fracture Risk Calculation (when applicable): FRAX score not calculated due to T-score greater than-1.0. (T score greater or equal to -1.0 to: NORMAL) (T score from -1.1 to -2.4: OSTEOPENIA) (T score less than or equal to -2.5: OSTEOPOROSIS) IMPRESSION: By WHO criteria, patient has normal bone mineral density. Follow-up guidelines as follows: Osteoporosis: Consider a repeat DEXA and Vertebral Fracture Assessment (VFA) exam in 2 years or sooner if medically necessary, to reassess this patient's status. Osteopenia: Consider a repeat DEXA in 2-3 years to reassess this patient's status, or if there is a new clinical indication. Normal: Consider a repeat DEXA in 5 years or sooner, or if there is a new clinical indication. All treatment decisions require clinical judgment and consideration of individual patient factors, including patient preferences, comorbidities, previous drug use, risk factors not captured in the FRAX model (e.g., frailty, falls, vitamin D deficiency, increased bone turnover, interval significant decline in bone density ) and possible under- or over-estimation of fracture risk by FRAX. In addition, the NOF Guide recommends that FDA-approved medical therapies be considered in postmenopausal women and men age >= 50 years with a: * Hip or vertebral (clinical or morphometric) fracture * T-score of <=-2.5 at the spine or hip * Ten-year fracture probability by FRAX of >= 3% for hip fracture or >=20% for major osteoporotic fracture. People with diagnosed cases of osteoporosis or at high risk for fracture should have regular bone mineral density tests. For patients eligible for Medicare, routine testing is allowed once every 2 years. The testing frequency can be increased to one year for patients who have rapidly progressing disease, those who are receiving or discontinuing medical therapy to restore bone mass, or have additional risk factors. Dictated by: Ihsan Gibbons M.D. on 09/14/2023 at 16:50 Approved by: Ihsan Gibbons M.D. on 09/14/2023 at 16:53
== END ==
PROVIDERS: PCP Family Medicine; Referring Provider Registered Nurse; Visit Provider Registered Nurse
DX: Z78.0 Asymptomatic menopausal state (principal)
CPT/HCPCS: 77080

== ENCOUNTER → 2023-11-06 08:27 | Outpatient (CLI) | payer MEDICARE, SELFPAY ==
[2022-12-27 17:55] VITALS: BMI 33.7
--- NOTE | 2023-11-06 08:49 | EKG_ITS ---
[address] [address] Test Date: 2023-11-06 Pat Name: Jody Barnard Department: [facility] Room: Gender: Female Benzol Operator: RIC : [id number] Requested By: Order Number: [id number] Reading MD: Manny Lao MD Measurements Intervals Aiken Rate: 78 P: 55 CO: 172 QRS: 1 QRSD: 76 T: 55 QT: 376 QTc: 428 Interpretive Statements Normal sinus rhythm Septal infarct , age undetermined Electronically Signed On 11-06-2023 9:02:45 PDT by Manny Lao MD
[2023-11-06 09:06] LABS: Add Manual Diff / Slide Review NO; Basophils Absolute Auto 100 /uL (0-100); Eosinophils Absolute Auto 400 /uL (0-450); Eosinophils Percent Auto 5.5 % (2-4); Hematocrit 40.7 % (36-46); Hemoglobin 13.5 g/dL (12.0-16.0); Lymphocytes Absolute Auto 2100 /uL (1100-4500); Mean Corpuscular HGB Conc 33.1 % (30-36); Mean Corpuscular Hemoglobin 31.2 PG (26-34); Mean Corpuscular Volume 94.4 fL (80-100); Monocytes Absolute Auto 300 /uL (0-900); Monocytes Percent Auto 4.2 % (3-14); Neutrophils Absolute Auto 4500 /uL (1500-7000); Neutrophils Percent Auto 60.3 % (50-75); Platelet Count 270 X10^3/uL (150-400); Red Blood Cell Count 4.31 X10^6/uL (4.0-5.2); Red Cell Distribution Width 15.6 % (11.6-14.8); White Blood Cell Count 7.4 X10^3/uL (4.5-11.0)
[2023-11-06 09:25] LABS: BUN Creatinine Ratio 23.6 (6-22); Blood Urea Nitrogen 17 mg/dL (7-17); Carbon Dioxide 23 mmol/L (22-32); Chloride 109 mmol/L (98-107); Estimated Glomerular Filt Rate > 60 mL/min (>60); Glucose 113 mg/dL (80-110); HEMOLYSIS < 15 (0-50); Potassium 3.9 mmol/L (3.4-5.1); Sodium 141 mmol/L (137-145)
[2023-11-06 09:30] LABS: Hemoglobin A1C% w Est Avg Glu 5.9 % (4.0-6.0)
[2023-11-06 10:15] LABS: Appearance Urine UA CLEAR; Bilirubin Urine UA NEGATIVE (NEGATIVE); Color Urine UA YELLOW; Glucose Urine UA NEGATIVE (Negative); Ketones Urine UA TRACE (NEGATIVE); Leukocyte Esterase Urine UA TRACE (NEGATIVE); Nitrite Urine UA NEGATIVE (Negative); Occult Blood Urine UA 2+ (Negative); Protein Urine UA TRACE (Negative); Specific Gravity Urine UA >=1.030 (1.000-1.035); Urobilinogen Urine UA 0.2 E.U./dL (0.2)
[2023-11-06 10:18] LABS: Urine Volume Low Vol <10mL (spun)
[2023-11-06 10:23] LABS: Bacteria Urine None Seen; Culture Indicated Urine Specimen Cultured; RBC Urine 10-30/HPF (0-5/HPF); Squamous Epithelial Cell Urine 1-5 /HPF (0-5/HPF); WBC Urine 1-5/HPF (0-5/HPF)
== END ==
PROVIDERS: PCP Family Medicine; Referring Provider Orthopaedic Surgery; Visit Provider Orthopaedic Surgery
DX: Z01.818 Encounter for other preprocedural examination (principal); R73.9 Hyperglycemia, unspecified; Z01.812 Encounter for preprocedural laboratory examination; N39.0 Urinary tract infection, site not specified
CPT/HCPCS: 36415; 80048; 81001; 83036; 85025; 87086; 93005

== ENCOUNTER 2023-11-28 08:23 | Day surgery (SDC) | payer MEDICARE, SELFPAY ==
[2022-12-27 17:55] VITALS: BMI 33.7
[2023-11-14 12:58] VITALS: BMI 35.2
[2023-11-28] VITALS (12 sets, daily range): BP systolic 116–139; BP diastolic 63–81; PULSE 80–107; RESP 12–20; TEMP 36.3–36.8; O2SAT 92–99; BMI 34.3
--- NOTE | 2023-11-28 06:00 | DI.RAD.S_ITS ---
PROCEDURE: XR KNEE LT 1TO2V INDICATIONS: tka TECHNIQUE: 2 view(s) of the knee acquired. COMPARISON: [facility], CR, XR KNEE RT 3V, 03/01/2018, 9:35. FINDINGS: Bones: Patient is status post knee joint arthroplasty. Hardware components are in expected positions. Visualized bony structures are intact. Soft tissues: Overlying postoperative changes are noted. IMPRESSION: Expected post-operative appearance of a knee arthroplasty. Approved by: Hany Nathan M.D. on 11/28/2023 at 18:13
[2023-11-28] MEDS: LACTATED RINGERS 1,000 ML 42 ML IV ×2 (09:13→13:50)
[2023-11-28] MEDS: ACETAMINOPHEN 325 MG TABLET 975 MG PO (09:26)
[2023-11-28] MEDS: CELECOXIB 200 MG CAPSULE 400 MG PO (09:27)
[2023-11-28] MEDS: VANCOMYCIN 1,000 MG/200 ML PIGGYBACK 200 MG IV (11:00)
--- NOTE | 2023-11-28 11:39 | PM.PREOP ---
Pre-operative Note Interval Note History & Physical reviewed/Exam performed by Physician: Yes Changes to H&P: No
--- NOTE | 2023-11-28 11:42 | PM.OP.1 ---
Operative Date/Time/Diagnoses Date of procedure: 11/28/23 Time of procedure: 11:55 Pre-op diagnosis: LEFT KNEE OA Post-op diagnosis: same Procedure & Clinicians Procedure: Left total knee arthroplasty Same procedure as scheduled: Yes Indications: The patient has had progressively worsening left knee pain with radiographic changes consistent with arthritis. Non-operative management has failed and the patient has requested total knee replacement. The risks, benefits and alternatives to surgery were discussed with the patient prior to proceeding. Risks discussed included, but were not limited to, failure to relieve pain, stiffness, infection, nerve damage, deep venous thrombosis, pulmonary embolism, stroke, coma, heart attack, permanent paralysis and , as well as the potential need for eventual revision of the prosthetic. Surgeon: Emliie Qiu Combat Engineer: Damion Lindsey Anesthesia Type: General and Peripheral nerve block Operative Notes Closure Type: primary Specimen(s): none sent Prosthetic devices, grafts, tissues, transplants, or devices: Journey BCS 2 size femur 4, size tibia 2, +9 poly, 32 x 7-1/2 mm patella Estimated Blood Loss (mL): 250 Blood products transfused: none Tourniquet time (min): 93 Procedure in detail: The patient was seen in the pre-operative area, where the patient identified the left knee as the operative site and this was marked with my initials. The patient received pre-operative antibiotics, and was taken to the operating room and placed on the operative table in the supine position. After satisfactory anesthesia, a post tensioning ironworker helper out was performed. The left leg was encircled with a tourniquet about the proximal thigh, and the leg was prepared from the toes to the tourniquet with ChloroPrep in the usual fashion and draped through sterile drapes. The leg was elevated and exsanguinated with Eschmark bandage and the tourniquet inflated to [250] mmHg pressure. A PA was used during the procedure and was essential for intraoperative retraction and safe implantation of the components. The knee was approached through an approximately 18 cm incision centered over the patella and carried into the knee through a medial parapatellar arthrotomy. Portion of the medial and lateral meniscus was resected. Soft tissue was carefully mobilized around the patella the patella was measured with a caliper. Bone was resected from the patella and the patellar height was reconstituted with up an appropriate sized patellar component. A cover was then placed on the patella. A small amount of additional medial and lateral meniscus was resected. Gildardo pins were placed in the distal femur and the guide was pinned to the proximal tibia. The knee was meticulously meticulously navigated. I placed it through a range of motion and looked at stressed and unstressed curves. We specifically developed a plan to optimize component alignment and stability of the knee. The Cori robotic bur was used for the distal femoral cut. It looked like an appropriate distal femoral cut and the cut was made without difficulty. The rotation was assessed and the appropriate size femoral guide was placed on the distal femur and finishing cuts were made. There was no evidence of notching. The anterior, posterior and chamfer cuts were then made. The posterior osteophytes and soft tissues were then removed. The posterior capsule was injected with part of a mixture of 60 ml 0.25% Marcaine mixed with 266 mg Exparel for post operative pain control. The remainder of this mixture was injected into the capsule and subcutaneous tissues during cement curing. A Cori robot was used for navigating the proximal tibial cut and the tibial guide was appropriately adjusted and pinned to the proximal tibia. The proximal tibial cut was made without difficulty. The rotation was assessed. The patient was placed in extension residual medial and lateral meniscus as well as any residual bone was carefully resected. [No] additional tibia was resected. Hemostasis was achieved especially posteriorly. Additional local was injected into the posterior capsule. The extension gap was assessed. The femoral component trial was placed and the notch was finished. Trial tibial and femoral components were then placed and the knee placed through a range of motion. Range of motion was [0-130], with good stability throughout the range. The trials were then removed, and the tibia was finished. The bone was prepared with pulsatile lavage, and dried with a sponge. Cement was applied and the final prosthetics placed. Excess cement was removed during and after cement curing. A brief Betadine soak was performed. After confirming there was no extruded cement posteriorly, the final tibial insert was placed. The knee was copiously irrigated and the tourniquet deflated. Hemostasis was obtained with the Bovie cautery. The capsule was closed with interrupted # 1 Vicryl suture. The subcutaneous layer was closed with barbed sutures, and the skin with a running 3-0 V-Lock suture and Surgical glue. An Aquacel Ag dressing was applied and the patient was taken to recovery having tolerated the procedure well. Complications: none Post-operative Condition: stable Disposition: Acute Care Plan for aftercare: The patient will be maintained on a standard total knee replacement protocol with weight bearing as tolerated. The patient will receive Eliquis and sequential compression devices for DVT prophylaxis. The patient will be discharged home when safe for the home environment.
[2023-11-28] MEDS: CEFAZOLIN 2 GM/100 ML PREMIX 100 ML IV ×2 (12:00→21:08)
[2023-11-28] MEDS: TRANEXAMIC ACID 1,000 MG in SODIUM CHLORIDE 0.9% 100 ML 200 MG IV (12:05)
--- NOTE | 2023-11-28 12:28 | SUR.OPER ---
Supine on padded OR bed. Pillow under head, arms secured on padded armboards <90 degree abduction. Safety belt across torso. Non-operative leg secured with tape over blanket over lower leg. Operative leg secured in DeMayo/Jacinto/Nathe positioner. Foam padded brace at thigh of operative leg.
[2023-11-28] MEDS: BUPIVACAINE 0.25% (PF) 60 ML, EPINEPHrine 0.3 MG INJ (12:31)
[2023-11-28] MEDS: BUPIVACAINE LIPOSOME 266 MG/20 ML VIAL INJ (12:32)
[2023-11-28] MEDS: LACTATED RINGERS 1,000 ML 100 ML IV ×2 (16:03→21:09)
--- NOTE | 2023-11-28 16:31 | PT-IP ANOTE ---
checked on pt and pt stated that RLE is still tingly and numbness and not ready to do PT. will f/u tomorrow.
[2023-11-28] MEDS: OXYCODONE IR 5 MG TABLET PO ×2 (18:30→21:57)
[2023-11-28] MEDS: ACETAMINOPHEN 325 MG TABLET 650 MG PO (18:30)
[2023-11-28] MEDS: ATORVASTATIN 20 MG TABLET 10 MG PO (21:10)
[2023-11-28] MEDS: DOCUSATE 100 MG CAPSULE PO (21:10)
[2023-11-28] MEDS: ASPIRIN EC 81 MG TABLET PO (21:10)
[2023-11-29] VITALS: BP 121/80; PULSE 106; TEMP 36.5; O2SAT 93
[2023-11-29 04:00] VITALS: BP 104/65; PULSE 100; RESP 16; TEMP 36.4; O2SAT 95
[2023-11-29] MEDS: OXYCODONE IR 5 MG TABLET PO ×3 (04:50→12:02)
[2023-11-29 06:13] LABS: Hematocrit 38.2 % (36-46); Hemoglobin 12.6 g/dL (12.0-16.0)
[2023-11-29] MEDS: CEFAZOLIN 2 GM/100 ML PREMIX 100 ML IV (06:19)
--- NOTE | 2023-11-29 06:19 | P.DS_ITS ---
History of Present Illness History of Present Illness Date Patient Seen: 11/29/23 Time Patient Seen: 06:19 Chief complaint: Left TKA robot *OPB* Narrative: Operative Date/Time/Diagnoses Date of procedure: 11/28/23 Time of procedure: 11:55 Pre-op diagnosis: LEFT KNEE OA Post-op diagnosis: same Procedure & Clinicians Procedure: Left total knee arthroplasty Same procedure as scheduled: Yes Indications: The patient has had progressively worsening left knee pain with radiographic changes consistent with arthritis. Non-operative management has failed and the patient has requested total knee replacement. The risks, benefits and alternatives to surgery were discussed with the patient prior to proceeding. Risks discussed included, but were not limited to, failure to relieve pain, stiffness, infection, nerve damage, deep venous thrombosis, pulmonary embolism, stroke, coma, heart attack, permanent paralysis and , as well as the potential need for eventual revision of the prosthetic. Surgeon: Emilie Qiu [employer] Sales Manager: Damion Lindsey Anesthesia Type: General and Peripheral nerve block Operative Notes Closure Type: primary Specimen(s): none sent Prosthetic devices, grafts, tissues, transplants, or devices: Journey BCS 2 size femur 4, size tibia 2, +9 poly, 32 x 7-1/2 mm patella Estimated Blood Loss (mL): 250 Blood products transfused: none Tourniquet time (min): 93 Discharge Providers Provider Discharge Date: 11/29/23 Primary care physician: Sae Connolly MD Consults: 11/28/23 06:00 Consult to Anesthesiology Routine Comment: Consulting Provider: Anesthesiologist Reason for consultation: Regional block for post operative pain control 11/28/23 15:37 Consult to Discharge Planning Routine Comment: Consult to Occupational Therapy Evaluate & Treat Comment: Physician Instructions: Evaluate and treat Consult to Physical Therapy Evaluate & Treat Comment: Physician Instructions: postop TKA protocol 11/28/23 15:57 Consult to Pastoral Services Routine 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 On the morning of POD# 1, she was complaining of severe left knee pain as her spinal was wearing off. She had been OOB to the bathroom a couple times and did not feel that she could walk on her own. She had not yet worked with PT. She was eating and voiding without difficulty. Exam Vital Signs (past 8 hours): - 11/29/23 00:00 Temperature 97.7 F Pulse Rate 106 H Blood Pressure 121/80 Pulse Oximetry 93 Oxygen Flow Rate 1.5 Oxygen Delivery Method Nasal Cannula Oxygen Flow Rate 1.5 Narrative Exam Narrative: 4/5 hip flexors, quadriceps, hamstrings on left; 5/5 DF, Pf, EHL. Sensation to light touch intact throughout LLE. Calf soft and compressible. CRISTO wrap CDI. Objective Labs 11/29/23 03:45 Labs: Laboratory Results - last 24 hr 11/29/23 03:45 Hgb 12.6 Hct 38.2 PFSH Medical History (Updated 11/14/23 @ 13:20 by Brenda Baer RN) Hearing loss History of COVID-19 (~2019) Pulmonary embolism, bilateral (2022) Depression, controlled Depression Allergic rhinitis (Unknown) Asthma (Unknown) Eczema (Unknown) Foot pain (Unknown) Fractures (Unknown) Lumbar disc disease (Unknown) Shoulder pain (Unknown) Ankle pain (Unknown) Carpal tunnel syndrome (Unknown) Chronic back pain (Unknown) Cataracts, bilateral (~2014) Painful menstrual periods (~1958) Heavy menstrual period (~1958) Hyperlipemia (Unknown) Osteopenia (Unknown) Asthma (Unknown) Glaucoma (2012) Hypertension (Unknown) Surgical History (Updated 11/14/23 @ 13:14 by Brenda Baer RN) History of total right hip replacement (2016) History of colonoscopy (2020) Hx of appendectomy (2015) Hx of cataract surgery (2014) Hx of tonsillectomy (~1953) History of left hip replacement (2015) Family History Child Age: 44 Heart disease Hypertension Stroke Mother Hypertension Stroke High cholesterol Father Heart disease Grandmother Heart disease Grandmother No problems noted. Social History marital status: household members: spouse occupational status: employed Smoking Status: Former smoker Tobacco: How many years used: 5 alcohol intake: current substance use type: does not use Discharge Assessment & Plan Assessment and Plan Assessment: Left knee osteoarthritis, s/p left total knee arthroplasty. Plan of Treatment: Discharge home after PT if PT agrees AND pain is <7/10 w/ oral medication and ice. Outpt PT, multimodal pain control, f/u in office in 2 weeks as scheduled. Restart Eliiquis for VTE prophylaxis. Discharge Plan Discharge Plan Patient Disposition: Home Provider Discharge Comment: Pt has postop meds at home. Discharge orders & Medications Discharge Orders: Discharge (Order); Ordered 11/29/23 Ordered By: Fátima Abarca Prescriptions: Continued multivitamin Tablet 1 tab PO DAILY Patient Comments: 1 tab PO QDAY albuterol sulfate [Ventolin HFA] 90 MCG/PUFF HFA aerosol inhaler 2 puff INH Q4HP PRN (Reason: Shortness Of Breath) Qty: 0 bupropion HCl 300 mg tablet extended release 24 hr 150 mg PO DAILY allopurinol 300 mg tablet 300 mg PO DAILY lisinopril-hydrochlorothiazide 20-25 mg Tablet 1 tab PO DAILY acetaminophen 500 mg Tablet 1,000 mg PO Q6H PRN (Reason: Pain) simvastatin 20 mg tablet 20 mg PO BEDTIME sertraline 50 mg Tablet 50 mg PO DAILY propranolol 10 mg tablet 10 mg PO DAILY Eliquis DVT-PE Treat 30D Start 5 mg (74 tabs) tablets,dose pack See Rx Instructions .ROUTE .COMPLEX Qty: 74 0RF Rx Instructions: orally per package directions Follow up/Referrals: Damion Lindsey PA-C [Advanced Reverse Unit Operator] - 12/08/23 10:30 am (Appt:12/07 @ 10:30 with Piter PAC @ [facility] [place] commercial rhianna adell ) Sae Connolly MD [Primary Care Provider] - Diet/Activity/Treatments Diet: Diet as Tolerated Activity: Walk multiple times a day. Elevate leg and use light compressive stocking if there is swelling in the calf Cold/Heat Therapy: Use ice multiple times a day. Skin/Wound/Dressing Care Report to your healthcare provider any signs of infection, such as:: chills, fever, night sweats, increased pain, unusual drainage and unusual redness Dressing: Leave dressing on. Okay to shower. Visit Report/Discharge Packet Instructions: DI for Knee Replacement, DI for Prescription Opioid Use Stand Alone Forms: Patient Portal/API, Surgery Discharge Discharge Data Primary Care Provider: Sae Connolly Attending Provider: Emilie Qiu VTE Deep Vein Thrombosis/Pulmonary Embolism Present on Admission: No
[2023-11-29 07:00] VITALS: O2SAT 94
[2023-11-29 08:41] VITALS: BP 125/74; PULSE 70
[2023-11-29] MEDS: lisinopriL 20 MG TABLET PO (08:41)
[2023-11-29] MEDS: PROPRANOLOL 10 MG TABLET PO (08:42)
[2023-11-29] MEDS: DOCUSATE 100 MG CAPSULE PO (08:42)
[2023-11-29] MEDS: MULTIVITAMIN 1 TABLET 1 TAB PO (08:42)
[2023-11-29] MEDS: SERTRALINE 50 MG TABLET PO (08:43)
[2023-11-29] MEDS: allopurinoL 100 MG TABLET 300 MG PO (08:43)
[2023-11-29] MEDS: buPROPion XL 150 MG TAB PO (08:43)
[2023-11-29] MEDS: ASPIRIN EC 81 MG TABLET PO (08:43)
[2023-11-29 09:23] VITALS: BP 125/74; PULSE 93; RESP 16; TEMP 36.4; O2SAT 94
--- NOTE | 2023-11-29 09:25 | PT.IIE ---
Current Diagnoses Unilateral primary osteoarthritis, left knee (11/28/23) Surgery Performed Operation Date: 11/28/23 10:45 Actual Procedures p Total Knee Arthroplasty - Robot(Left) - Emilie Qiu MD Surgical History (Last Updated 11/14/23 @ 13:14 by Brenda Baer, RN) History of colonoscopy (2020) History of left hip replacement (2015) History of total right hip replacement (2016) Hx of appendectomy (2015) Hx of cataract surgery (2014) Hx of tonsillectomy (~1953) Medical History (Last Updated 11/14/23 @ 13:20 by Brenda Baer, KVNG) Allergic rhinitis (Unknown) Ankle pain (Unknown) Asthma (Unknown) Asthma (Unknown) Carpal tunnel syndrome (Unknown) Cataracts, bilateral (~2014) Chronic back pain (Unknown) Depression Depression, controlled Eczema (Unknown) Foot pain (Unknown) Fractures (Unknown) Glaucoma (2012) Hearing loss Heavy menstrual period (~1958) History of COVID-19 (~2019) Hyperlipemia (Unknown) Hypertension (Unknown) Lumbar disc disease (Unknown) Osteopenia (Unknown) Painful menstrual periods (~1958) Pulmonary embolism, bilateral (2022) Shoulder pain (Unknown) Physical Therapy Inpatient Evaluation/Re-Eval M1 PT/OT-IP Prior Functional Status Start: 11/29/23 13:00 Freq: NEEDED Status: Active Protocol: Document 11/29/23 09:25 AB (Rec: 11/29/23 13:17 AB [id number]) Medical Review Prior Functional Status Medical History Reviewed Yes Communication able to make needs known Mobility and Gait pt stated that she was modified independent with all mobilities and ambulation without AD indoors; uses a SPC for outdoor mobility Activities of Daily Living and IADL's per OT note: Increased time for ADL needs. Pt just completing recovery of left shoulder fx and now WBAT, but still has limited AROM. Social History Household Members spouse Living Arrangements RV Number of Floors (Floors) Two Floors Number of Stairs To Enter/Railing? pt has 5 steps B rails to enter the house has 1 step to get to bathroom level but pt stated that she does not need to go up there: pt has a half bath that she can use and will only do sponge bathing per pt. Home Environment Standard Height Toilet,Walk in Shower,Built-In Shower Seat Home Equipment Front Wheel Walker,Straight Cane,Raised Toilet Seat Without Armrests,Hand Held Shower,Long Handled Shoe Horn, School Guidance Counselor,Grab Bars In Shower Additional Social History Comment pt plans to sleep on her recliner M2 PT-IP Current Condition Start: 11/29/23 13:00 Freq: NEEDED Status: Active Protocol: Document 11/29/23 09:25 AB (Rec: 11/29/23 13:17 AB [id number]) Physical Therapy Current Condition Current Condition Evaluation Date 11/29/23 Treatment Diagnosis s/p L TKA; difficulty in walking Onset Date 11/28/23 M3 PT-IP Subjective Start: 11/29/23 13:00 Freq: NEEDED Status: Active Protocol: Document 11/29/23 09:25 AB (Rec: 11/29/23 13:17 AB [id number]) Subjective Physical Therapy Visit Type Type Initial Evaluation Visit Start Time 09:25 Visit Stop Time 10:30 Number of BUSINESS SUPPORT Visits 0 Physical Therapy Visit Comments Patient Comments agreeable to do PT Therapy Pain Assessment Pain When Pain Assessed At Rest Pain Present Pain Present Pain Reported Location Left Knee Intensity 7 Pain Behaviors Facial Grimacing,Guarding, Holding Area Pain Management Techniques Apply Cold,Distraction, Modification of Treatment,Re- positioning,Timing of Activity with Medications M4 PT-IP Mobility and Gait Start: 11/29/23 13:00 Freq: NEEDED Status: Active Protocol: Document 11/29/23 09:25 AB (Rec: 11/29/23 13:17 AB [id number]) PT-Bed Mobility Assessment Supine to Sit Supine to Sit Standby Assistance PT-Transfer Assessment Sit to and From Stand Sit to and from Stand Contact Guard Assistance, Minimal Assistance,1 Person Assistance,Use of Upper Extremities Equipment Transfer Assistive Device Gait Belt,Front Wheeled Walker Orthotic/Prosthetic Devices or Brace: No Transfers Transfer Destination Toilet Transfer Technique ambulated Transfer Ability Level of Assist Contact Guard Assistance, Minimal Assistance,1 Person Assistance,Use of Upper Extremities Comments Mobility Comments pt supine in bed and agreeable to do PT. obtained PLOF and home setup from pt. pt stated that she had a L shoulder fx ~ 14 weeks ago that affected her rotator cuff and is limited to LUE use and has been going to outpt PT for her shoulder. post op folder provided and reviewed contents. educated on HEP. pt completed LLE heel slides prior to mobilizaing. BP in supine: 104/70. pt completed supine to sit SBA. HOB elevated and pt used bed rail to assist. pt stated that she sleeps on her recliner chair at home. able to sit on EOB SBA. pt requested to use the toilet. completed sit to stand CGA to min A and max cues for techniques. ambulated to the toilet using FWW CGA to min A. completed toileting and hygiene care SBA. completed sit to stand from the toilet CGA to min A using grab bar. pt ambulated towards the sink using FWW CGA and able to maintain standing SBA while completing handwashing. pt ambulated out in the hallway using FWW ~ 75 ft CGA. pt sat on w/c and rested. educated pt on stair climbing. pt completed up/down steps using B rails CGA and cues. assisted pt back to her room. ambulated from w/c to chair using FWW CGA. positioned pt on the chair. Call light and table placed within reach. informed pt regarding caregiver training. set up caregiver training at 130pm today. Gait Assessment Gait Gait Assistance Required: Contact Guard Assist,Minimum Assistance,1 Person Assist Distance (Feet) 75 Able to Maintain Weight Bearing Status Yes During Gait Assistive Devices Assistive Device Gait Belt,Front Wheeled Walker Orthotic/Prosthetic Devices or Brace: No Gait Deviations General Gait Pattern Antalgic,Decreased Stride Length,Decreased Feet Clearance,Step-to Gait Factors Limiting Gait Function Factors Limiting Gait Function Decreased Activity Tolerance, Decreased Strength,Limited Range of Motion,Pain,Poor Balance,Poor Safety Awareness Stair Climbing Assessment Evaluation Level of Assist On Stairs Contact Guard Assistance,1 Person Assistance Devices Stair Climbing Assistive Devices Left Railing,Right Railing Technique/Endurance Stair Climbing Direction Ascend and Descend Stair Climbing Technique Step to Step Number of Steps Climbed 3 Query Text: Stair Climbing Set # Repetitions (reps) 1 PT-Balance Assessment Sitting Balance and Reactions Static Sitting Balance Ability Normal Dynamic Sitting Balance Ability Good Standing Balance and Reactions Static Standing Balance Ability Fair Dynamic Standing Balance Ability Fair Device Used FWW M5 PT-IP Objective Assessments Start: 11/29/23 13:00 Freq: NEEDED Status: Active Protocol: Document 11/29/23 09:25 AB (Rec: 11/29/23 13:17 AB [id number]) Orientation Orientation/Cognition Level of Alertness Alert Orientation Name,Place,Situation Language Function Ability No Deficits Noted Safety Awareness Understands Safety Issues, Decreased Safety Awareness Memory Description No Deficits Noted Gross Range of Motion Lower Extremity ROM Assessment Left Impaired Impairments L knee flexion: ~ 70 deg L knee extension: ~ 30 deg less to 0 Strength Lower Extremity Strength Assessment Left Impaired Hip 4-/5 Knee 3+/5 Sensation Assessment Sensation Gross Sensation WNL Muscle Tone Muscle Tone WNL Yes M6 PT-IP Treatment Start: 11/29/23 13:00 Freq: NEEDED Status: Active Protocol: Document 11/29/23 09:25 AB (Rec: 11/29/23 13:17 AB [id number]) Physical Therapy Treatment Exercises Exercises Heel Slides Education Education Provided Precautions,Weight Bearing Status,Post-Op Packet,Safety M7 PT-IP Assessment and Plan Start: 11/29/23 13:00 Freq: NEEDED Status: Active Protocol: Document 11/29/23 09:25 AB (Rec: 11/29/23 13:17 [id number]) PT Summary Assessment and Plan Potential Rehabilitation Potential Good Status of Condition at Evaluation Stable Summary Impairments Pain,ROM,Strength,Balance, Coordination,Bed Mobility, Transfers,Gait,Activity Tolerance Assessment Summary pt is a 77 y/o F s/p L TKA POD 1. pt is WBAT on LLE. pt requiring CGA to min A with mobility using FWW. caregiver training set up this afternoon . pt plans to go home and spouse to assist her. pt has outpt PT set up. will continue to assess. Goals Bed Mobility Goal Independent Transfer Goal Independent,Front Wheeled Walker Gait Goal Independent,Front Wheel Walker Gait Distance 200 Other Goals up/down 5 steps B rails SBA Days to Meet Goals 5 Frequency of Treatment Frequency Of Treatment Twice a Day Treatment Plan Physical Therapy Treatment Plan Bed Mobility Training,Transfer Training,Gait Training, Therapeutic Exercise,Balance Retraining,Post Op Education, Discharge Planning,Hot or Cold Pack,Neuromuscular Re-ed, Coordination Retraining,Manual Therapy Weight Bearing Status Weight Bearing Status Weight Bear as Tolerated Allowed Weight Bearing Amount (enter % LLE WBAT or #) (%) Recommendations To Nursing Amount of Assist Needed 1 Person Assist Discharge Recommendations PT Discharge Recommendations Home with Assistance, Outpatient PT Transportation Needs at Discharge Private Vehicle
[2023-11-29] MEDS: ACETAMINOPHEN 325 MG TABLET 650 MG PO (09:28)
--- NOTE | 2023-11-29 10:30 | OT.IP.EVAL ---
Current Diagnoses Unilateral primary osteoarthritis, left knee (11/28/23) Surgery Performed Operation Date: 11/28/23 10:45 Actual Procedures p Total Knee Arthroplasty - Robot(Left) - Emilie Qiu MD Past Medical History (Last Updated 11/14/23 @ 13:20 by Brenda Baer RN) Allergic rhinitis (Unknown) Ankle pain (Unknown) Asthma (Unknown) Asthma (Unknown) Carpal tunnel syndrome (Unknown) Cataracts, bilateral (~2014) Chronic back pain (Unknown) Depression Depression, controlled Eczema (Unknown) Foot pain (Unknown) Fractures (Unknown) Glaucoma (2012) Hearing loss Heavy menstrual period (~1958) History of COVID-19 (~2019) Hyperlipemia (Unknown) Hypertension (Unknown) Lumbar disc disease (Unknown) Osteopenia (Unknown) Painful menstrual periods (~1958) Pulmonary embolism, bilateral (2022) Shoulder pain (Unknown) Surgical History (Last Updated 11/14/23 @ 13:14 by Brenda Baer RN) History of colonoscopy (2020) History of left hip replacement (2015) History of total right hip replacement (2016) Hx of appendectomy (2015) Hx of cataract surgery (2014) Hx of tonsillectomy (~1953) Occupational Therapy Inpatient Evaluation/Re-Eval M1 PT/OT-IP Prior Functional Status Start: 11/29/23 12:07 Freq: NEEDED Status: Active Protocol: Document 11/29/23 12:07 [facility] (Rec: 11/29/23 12:27 [facility] [id number]) Medical Review Prior Functional Status Communication Independent Mobility and Gait Pt uses a cane, she tends to furniture cruise in the RV. Activities of Daily Living and IADL's Increased time for ADL needs. Pt just completing recovery of left shoulder fx and now WBAT , but still has limited AROM. Prior Functional Level (Other details) Pt's to be able to assist. Social History Household Members spouse Living Arrangements RV Number of Stairs To Enter/Railing? 5 shallow steps with bilateral rails. Pt has two steps up to the shower with right rail. Home Environment Standard Height Toilet,Walk in Shower,Built-In Shower Seat Home Equipment Front Wheel Walker,Raised Toilet Seat w/Armrests,Long Handled Shoe Horn,English Composition Teacher,Grab Bars In Shower Additional Social History Comment Pt has a recliner. M2 OT-IP Current Condition Start: 11/29/23 12:07 Freq: Status: Active Protocol: Document 11/29/23 12:07 [facility] (Rec: 11/29/23 12:27 [facility] [id number]) Occupational Therapy Current Condition Current Condition Evaluation Date 11/29/23 Treatment Diagnosis S/P L TKA Diagnosis Onset Date 11/28/23 M3 OT- IP Subjective and Pain Start: 11/29/23 12:07 Freq: Status: Active Protocol: Document 11/29/23 12:07 [facility] (Rec: 11/29/23 12:27 [facility] [id number]) OT- Subjective Occupational Therapy Visit Type Type Initial Evaluation Visit Start Time 10:30 Visit Stop Time 11:20 Occupational Therapy Visit Comments Patient Comments Pt agreed to get dressed and sponge off. Patient/Caregiver Goals To go home. OT Pain Assessment Pain When Pain Assessed At Rest Pain Present Pain Present Pain Reported Location Left Knee Intensity 5 Scale Used Numeric (0 - 10) M4 OT- IP ADL's Start: 11/29/23 12:07 Freq: Status: Active Protocol: Document 11/29/23 12:07 [facility] (Rec: 11/29/23 12:27 [facility] [id number]) OT [id number] General Evaluation Self-Feeding Ability Independent OT ADL-Grooming General Evaluation Grooming Ability Independent OT ADL-Oral Care Comments Oral Care Comments Not performed. OT ADL-Dressing General Eval Upper Body Dressing Ability Independent Lower Body Dressing Ability Moderate Assistance Areas Needing Assistance Underpants/Brief,Pants/Shorts, Socks Comments OT Dressing Comments Pt able to practice use of boat fueler and sock aid. Educated pt to be mindful of her knee positioning during adl needs. OT ADL-Toileting Comments OT Toileting Comments Pt not having to go . Pt aware to wear pads at night and able to show her toilet paper aid to assist with hygiene needs. OT ADL-Bathing Bathing Type Bathing Type Sponge Bath General Evaluation Bathing Ability MOD Assistance Areas Needing Assistance Wash/Dry Back Comments OT Bathing Comments Pt able to sponge off with set -up assist, assist for her back and legs. Pt's shower too small to get her FWW into but may benefit from a tub bench to increased ease to get in and for showering needs. Pt states will probably just sponge off for now. M5 OT- IP IADL's Start: 11/29/23 12:07 Freq: Status: Active Protocol: Document 11/29/23 12:07 [facility] (Rec: 11/29/23 12:27 [facility] [id number]) OT-Instrumental Activities of Daily Living Home Safety Awareness Awareness of Need for Assistance at Home Good Awareness Ability to Problem Solve Emergency Able to Problem Solve Situations Medication Management Medication Management No Deficits Identified Money Management Money Management No Deficits Identified Meal Preparation Meal Preparation Caregiver Provides Assist Shot Lighter Shot Lighter Caregiver Provides Assist M6 OT- IP Functional Cognition Start: 11/29/23 12:07 Freq: Status: Active Protocol: Document 11/29/23 12:07 [facility] (Rec: 11/29/23 12:27 [facility] [id number]) Cognitive Factors Limiting Selfcare Function Cognitive Ability Level of Alertness Alert Patient Orientation Name,Age,Birthday,Month,Date, Year,Day of Week,Place, Situation Attention Span Ability Capable of Focused Attention, Capable of Sustained Attention Ability to Follow Commands Able to Follow One Step Commands Cognitive Comments Cognitive Assessment Comments Pt able to follow commands for ADL and mobility needs. OT- Vision and Hearing OT- Hearing Assessment OT- Hearing Assessment Hearing Impaired,Use of Hearing Aids OT- Vision Assessment Visual Acuity Glasses For Reading Visual Attentiveness WFL Occular Pursuits WFL M7 OT- IP Mobility and Balance Start: 11/29/23 12:07 Freq: Status: Active Protocol: Document 11/29/23 12:07 [facility] (Rec: 11/29/23 12:27 [facility] [id number]) OT-Transfer Assessment Sit to and From Stand Sit to and from Stand Minimal Assistance Technique Transfer Destination Chair Transfer Technique Stand Step Pivot Devices Transfer Assistive Devices Gait Belt,Front Wheeled Walker Comments Mobility Comments ALYSON to stand form lower surfaces to the fww. OT- Balance Assessment Sitting Balance and Reactions Static Sitting Balance Ability Good Dynamic Sitting Balance Ability Good Standing Balance and Reactions Static Standing Balance Ability Good M8 OT- IP Objective Assessments Start: 11/29/23 12:07 Freq: Status: Active Protocol: Document 11/29/23 12:07 [facility] (Rec: 11/29/23 12:27 [facility] [id number]) OT Gross Range of Motion Upper Extremity Range of Motion Assessment Bilaterally Impaired OT Strength Upper Extremity Strength Assessment Bilaterally Impaired M9 OT- IP Assessment and Plan Start: 11/29/23 12:07 Freq: Status: Active Protocol: Document 11/29/23 12:07 [facility] (Rec: 11/29/23 12:27 [facility] [id number]) OT Summary Assessment and Plan Potential Rehabilitation Potential Excellent Analytic Complexity at Evaluation Low Summary OT Impairments Pain,Strength,Balance, Functional Mobility,Dressing, Toileting,Bathing,Toilet Transfers,Shower Transfers Progress Towards Goals Progressing Toward Goals Assessment Summary Pt low complexity and main barriers are steps, pain and will need assist for ADL and mobility needs. Pt would benefit from a sock aid at home to use and tub bench. Pt to go home with assist and do outpt PT. Goals Dressing Goal Independent,English Composition Teacher,Sock Aid Toileting Goal Independent,Toilet Paper Aid Bathing Goal Standby Assistance Toilet Transfer Goal Independent Shower Transfer Goal Standby Assistance Days to Meet Goals 5 Frequency of Treatment Other frequency 5x/week Treatment Plan OT Treatment Plan ADL Training,Functional Mobility,Patient/Family Education,Discharge Planning Discharge Recommendations OT Discharge Recommendations Home with Assistance, Outpatient PT Home Equipment Needs sock aid, tub bench Transportation Needs at Discharge Private Vehicle
--- NOTE | 2023-11-29 11:52 | CM.DANOTE ---
Initial DCP Assessment Note Pt is a 77 yo female, resident of [place], now POD#1 from left TKA PCP: Sae Connolly Payer: MCR/UNIQUE Reviewed chart, pt discussed in multidisciplinary rounds this morning. Therapy anticipates clearing pt for return home w/family to assist after cg training this afternoon. Pt has planned for home, DC order from Ortho has already been initiated this morning. No barriers identified at this time to patient's safe discharge home w/family to assist; close outpatient f/u recommended. CM team will plan to follow clinical course closely in case any DC needs or concerns arise. JENNIFER [place] Discharge Planning/Care Management CM Discharge Assessment Start: 11/29/23 11:49 Freq: Status: Active Protocol: Document 11/29/23 11:49 [facility] (Rec: 11/29/23 11:52 [facility] [id number]) Discharge Planning Assessment Assigned Land Commissioner JENNIFER Levy DPOA/Assigned Designee Name Ramos () Ak[place] Contact Information [phone] Advance Directives? Yes Advance Directives on File No History Provided By Patient,Medical Record Prior Living Arrangements RV Household Members spouse Type of transporation used prior to Drives own vehicle admit Independent with ADL's Yes Is patient alert and oriented? Yes Patient/Family Preference OP PT Therapy Barriers to Discharge No Discharge Plan Home Transportation Arrangement Spouse Referrals Initiated None needed
--- NOTE | 2023-11-29 13:40 | PT.IPTN ---
Current Diagnoses Unilateral primary osteoarthritis, left knee (11/28/23) Surgery Performed Operation Date: 11/28/23 10:45 Actual Procedures p Total Knee Arthroplasty - Robot(Left) - Emilie Qiu MD Physical Therapy Treatment Note M2 PT-IP Current Condition Start: 11/29/23 13:00 Freq: NEEDED Status: Discharge Protocol: Document 11/29/23 09:25 AB (Rec: 11/29/23 13:17 AB [id number]) Physical Therapy Current Condition Current Condition Evaluation Date 11/29/23 Treatment Diagnosis s/p L TKA; difficulty in walking Onset Date 11/28/23 M3 PT-IP Subjective Start: 11/29/23 13:00 Freq: NEEDED Status: Discharge Protocol: Document 11/29/23 13:40 AB (Rec: 11/29/23 15:35 AB [id number]) Subjective Physical Therapy Visit Type Type Treatment Note Visit Start Time 13:40 Visit Stop Time 14:10 Number of RETAIL MORTGAGE BANKER Visits 0 Physical Therapy Visit Comments Patient Comments agreeable to do PT Therapy Pain Assessment Pain When Pain Assessed At Rest Pain Present Pain Present Pain Reported Location Left Knee Intensity 6 Scale Used Numeric (0 - 10) Pain Management Techniques Distraction,Modification of Treatment,Re-positioning, Timing of Activity with Medications M4 PT-IP Mobility and Gait Start: 11/29/23 13:00 Freq: NEEDED Status: Discharge Protocol: Document 11/29/23 13:40 AB (Rec: 11/29/23 15:35 AB [id number]) PT-Transfer Assessment Sit to and From Stand Sit to and from Stand Contact Guard Assistance, Minimal Assistance,1 Person Assistance,Use of Upper Extremities Equipment Transfer Assistive Device Gait Belt,Front Wheeled Walker Orthotic/Prosthetic Devices or Brace: No Transfers Transfer Destination Chair Transfer Technique ambulated Transfer Ability Level of Assist Contact Guard Assistance, Minimal Assistance,Use of Upper Extremities Comments Mobility Comments pt sitting on the chair. spouse in room with pt. caregiver training conducted. educated spouse on use of safety belt and how to assist pt. spouse was able to put safety belt on pt. assisted pt with sit to stand. pt ambulated in the hallway using FWW CGA to min A ~ 40 ft with spouse assisting. assisted pt to the stairs. educated spouse on how to assist pt with stair climbing. pt completed up/down steps B rails and spouse was able to assist pt safely. assisted back to her room. call light with pt. pt and spouse without further concerns. left pt with spouse. Gait Assessment Gait Gait Assistance Required: Contact Guard Assist,Minimum Assistance Distance (Feet) 40 Able to Maintain Weight Bearing Status Yes During Gait Assistive Devices Assistive Device Gait Belt,Front Wheeled Walker Orthotic/Prosthetic Devices or Brace: No Gait Deviations General Gait Pattern Antalgic,Decreased Stride Length,Decreased Feet Clearance,Step-to Gait Factors Limiting Gait Function Factors Limiting Gait Function Decreased Activity Tolerance, Decreased Strength,Limited Range of Motion,Pain,Poor Balance,Poor Safety Awareness Stair Climbing Assessment Evaluation Level of Assist On Stairs Contact Guard Assistance, Minimal Assistance Devices Stair Climbing Assistive Devices Left Railing,Right Railing Technique/Endurance Stair Climbing Direction Ascend and Descend Stair Climbing Technique Step to Step Number of Steps Climbed 3 Stair Climbing Set # Repetitions (reps) 1 M5 PT-IP Objective Assessments Start: 11/29/23 13:00 Freq: NEEDED Status: Discharge Protocol: Document 11/29/23 09:25 AB (Rec: 11/29/23 13:17 [id number]) Orientation Orientation/Cognition Level of Alertness Alert Orientation Name,Place,Situation Language Function Ability No Deficits Noted Safety Awareness Understands Safety Issues, Decreased Safety Awareness Memory Description No Deficits Noted Gross Range of Motion Lower Extremity ROM Assessment Left Impaired Impairments L knee flexion: ~ 70 deg L knee extension: ~ 30 deg less to 0 Strength Lower Extremity Strength Assessment Left Impaired Hip 4-/5 Knee 3+/5 Sensation Assessment Sensation Gross Sensation WNL Muscle Tone Muscle Tone WNL Yes M6 PT-IP Treatment Start: 11/29/23 13:00 Freq: NEEDED Status: Discharge Protocol: Document 11/29/23 13:40 AB (Rec: 11/29/23 15:35 [id number]) Physical Therapy Treatment Education Education Provided Safety M7 PT-IP Assessment and Plan Start: 11/29/23 13:00 Freq: NEEDED Status: Discharge Protocol: Document 11/29/23 13:40 AB (Rec: 11/29/23 15:35 [id number]) PT Summary Assessment and Plan Potential Rehabilitation Potential Good Summary Impairments Pain,ROM,Strength,Balance, Coordination,Sensation,Tone, Cognition,Bed Mobility, Transfers,Gait,Activity Tolerance Progress Towards Goals Progressing Toward Goals Assessment Summary caregiver training conducted and spouse was able to assist pt safely with mobility. pt may go home when medically stable. Goals Bed Mobility Goal Independent Transfer Goal Independent,Front Wheeled Walker Gait Goal Independent,Front Wheel Walker Gait Distance 200 Other Goals up/down 5 steps B rails SBA Days to Meet Goals 5 Frequency of Treatment Frequency Of Treatment Twice a Day Treatment Plan Physical Therapy Treatment Plan Bed Mobility Training,Transfer Training,Gait Training, Therapeutic Exercise,Balance Retraining,Post Op Education, Discharge Planning,Hot or Cold Pack,Neuromuscular Re-ed, Coordination Retraining,Manual Therapy Weight Bearing Status Weight Bearing Status Weight Bear as Tolerated Allowed Weight Bearing Amount (enter % LLE WBAT or #) (%) Recommendations To Nursing Amount of Assist Needed 1 Person Assist Discharge Recommendations PT Discharge Recommendations Home with Assistance, Outpatient PT Transportation Needs at Discharge Private Vehicle
--- NOTE | 2023-11-29 14:38 | PC.NURSE ---
Discussed d/c instructions with Pt. Follow up appointment established. Discussed s/s to notify provider of. Discussed continuation of Pt's meds prior to admit, not driving while using narcotics, and drinking plenty of fluids to prevent constipation and stay hydrated. Pt dressed, IV removed. Pt left via w/c with spouse and ELECTRONIC WARFARE LINGUIST after confirming that she had all of her belongings.
== END 2023-11-29 14:44 | disposition home or self-care (01) ==
LOC: OR 08:25 → AC 08:26
PROVIDERS: PCP Family Medicine; Referring Provider Orthopaedic Surgery; Visit Provider Orthopaedic Surgery
PROC: 0SRD0JZ Replacement of Left Knee Joint with Synthetic Substitute, Open Approach (ICD-10-PCS; CPT 27447; principal; 2023-11-28 10:45)
DX: M17.12 Unilateral primary osteoarthritis, left knee (principal); M25.762 Osteophyte, left knee
CPT/HCPCS: 27447; 36415; 73560; 85014; 85018; 94760; 97116; 97161; 97165; 97530; 97535; C1776; C9290; J0171; J0690; J1100; J1170; J2405; J2704

== ENCOUNTER → 2024-02-28 07:55 | Outpatient (CLI) | payer MEDICARE, SELFPAY ==
[2023-11-28 08:34] VITALS: BMI 34.3
--- NOTE | 2024-02-28 | DI.MRI.S_ITS ---
PROCEDURE: MR LUMBAR SPINE WO CON INDICATIONS: Spinal stenosis, lumbar region with neurogenic claudication TECHNIQUE: Noncontrast sagittal T1 spin echo and T2 fast echo, sagittal STIR, and T2 fast spin echo through the lumbar spine. In cases with scoliosis, additional coronal T2 fast spin echo may be performed. COMPARISON: [facility], CT, CT ABDOMEN PELVIS WO/W CON, 09/01/2023, 11:33. [facility] [place], CR, XR LUMBAR SPINE WITH OBLIQUES PLUS FLEXION EXTENSION, 02/12/2024, 8:21. FINDINGS: Image quality: Diagnostic Alignment and Curvature: There is redemonstration of dextrocurvature of the upper lumbar spine with reciprocal levocurvature inferiorly. Bone Marrow: Multiple scattered T2 and T1 hyperintense foci seen throughout the imaged spine likely representing hemangiomas. Bone marrow signal intensity is otherwise unremarkable. No acute vertebral body compression fractures. Spinal Cord: Conus medullaris terminates at the L1 level. Visualized cord demonstrates normal signal and size. Paraspinous Soft Tissues: No paravertebral masses. T12-L1: No significant neuroforaminal or spinal canal stenosis. L1-L2: Moderate degenerative endplate changes and disc space loss. Endplate osteophytes. Mild bilateral facet arthropathy. Small symmetric disc bulge. Moderate left neuroforaminal stenosis. No spinal canal stenosis or significant right neuroforaminal stenosis. L2-L3: Degenerative endplate changes and disc space loss. Moderate bilateral facet arthropathy and ligamentum flavum hypertrophy. Symmetric disc bulge. Minimal spinal canal stenosis. Mild right and mild-moderate left bilateral neuroforaminal stenosis. L3-L4: Mild bilateral facet arthropathy. Prominent ligamentum flavum. Small amount of epidural lipomatosis. Moderate eccentric to the right disc bulge. There is moderate right and mild-moderate left bilateral neuroforaminal stenosis and mild spinal canal stenosis. L4-L5: Degenerative endplate changes with disc space loss. Symmetric disc bulge with posterior peripheral T2 hyperintensity likely representing a small annular fibrosus fissure. Moderate bilateral facet arthropathy. Findings result in mild spinal canal stenosis with mild-moderate left and moderate right neuroforaminal stenosis. L5-S1: Moderate bilateral facet arthropathy. Symmetric disc bulge. There is mild-moderate spinal canal stenosis with moderate bilateral neuroforaminal stenosis. IMPRESSION: Lumbar spine without acute abnormalities. Moderate multilevel, multifactorial lumbar spondylosis as detailed above by vertebral body level. Findings are most pronounced at L3-4 and L4-5. Small posterior annular fibrosus fissure of the L4-5 disc. Dictated by: Pedro Zamora M.D. on 02/28/2024 at 11:31 Approved by: Pedro Zamora M.D. on 02/28/2024 at 12:02
== END ==
PROVIDERS: PCP Family Medicine; Referring Provider Physical Medicine & Rehabilitation Pain Medicine; Visit Provider Physical Medicine & Rehabilitation Pain Medicine
DX: M48.062 Spinal stenosis, lumbar region with neurogenic claudication (principal); M47.816 Spondylosis without myelopathy or radiculopathy, lumbar region; M47.817 Spondylosis without myelopathy or radiculopathy, lumbosacral region; M51.A1 Intervertebral annulus fibrosus defect, small, lumbar region
CPT/HCPCS: 72148

== ENCOUNTER → 2024-03-07 09:28 | Outpatient (CLI) | payer MEDICARE, SELFPAY ==
[2023-11-28 08:34] VITALS: BMI 34.3
--- NOTE | 2024-03-07 | DI.US.S_ITS ---
LIMITED ULTRASOUND OF RIGHT BREAST: 03/07/2024 CLINICAL: Patient returns today to evaluate an asymmetry in the right breast. Comparison is made to exams dated: 03/07/2024 mammogram, 12/20/2022 mammogram, 09/17/2021 mammogram, 07/02/2020 mammogram - [facility], 05/08/2013 mammogram, and 08/26/2011 mammogram - [facility]. Color flow and real-time ultrasound of the right breast 10 o'clock region were performed on the areas of interest. Cortes scale images of the real-time examination were reviewed. The mammographic mass in the right breast at 10 o'clock middle depth is not seen sonographically. IMPRESSION: SUSPICIOUS Mammographic mass in the right breast not seen sonographically. Stereotactic biopsy recommended. This exam was interpreted at Station ID: [id number]. Electronically Signed By: Mai robbins/:03/07/2024 12:01:02 letter sent: Biopsy Required ACR BI-RADS Category 4A: Suspicious
--- NOTE | 2024-03-07 09:29 | DI.MG.S_ITS ---
BILATERAL DIGITAL DIAGNOSTIC MAMMOGRAM 3D/2D: 03/07/2024 CLINICAL: Inverted left nipple. Comparison is made to exams dated: 12/20/2022 mammogram, 09/17/2021 mammogram, and 07/02/2020 mammogram - [facility]. There are scattered areas of fibroglandular density (category b / 25%-50% glandular tissue). There is a focal asymmetry in the right breast at 10 o'clock posterior depth. There is architectural distortion in the left breast central to the nipple anterior depth. No other significant masses or calcifications are seen in either breast. IMPRESSION: INCOMPLETE: NEED ADDITIONAL IMAGING EVALUATION The focal asymmetry in the right breast at 10 o'clock posterior depth is indeterminate. The architectural distortion in the left breast central to the nipple anterior depth is indeterminate. A targeted ultrasound of the bilateral breasts is recommended and will be performed immediately following this exam. Based on the Tyrer Cuzick model (a risk assessment model) the patient's lifetime risk is 3.2% and her 10 year risk is 0.0%. According to the ACR, ACS, and NCCN guidelines, an annual breast MRI exam along with mammogram is recommended if the patient's lifetime risk is 20% or greater. This exam was interpreted at Station ID: [id number]. NOTE: For mammograms, a report in lay terms will be sent to the patient. Approximately 15% of breast malignancies will not be visualized mammographically. In the management of a palpable breast mass, a negative mammogram must not discourage biopsy of a clinically suspicious lesion. Electronically Signed By: Mai robbins/:03/07/2024 10:42:05 ACR BI-RADS Category 0: Incomplete: Need Additional Imaging Evaluation
--- NOTE | 2024-03-07 09:30 | DI.US.S_ITS ---
LIMITED ULTRASOUND OF LEFT BREAST: 03/07/2024 CLINICAL: Inverted left nipple. Comparison is made to exams dated: 03/07/2024 mammogram, 12/20/2022 mammogram, 09/17/2021 mammogram - [facility], 07/21/2020 specimen, 07/21/2020 specimen, and 07/21/2020 stereotactic biopsy - [facility]. Color flow and real-time ultrasound of the left breast 6 o'clock, and retroareolar regions were performed on the areas of interest. Cortes scale images of the real-time examination were reviewed. There is a 1.2 cm x 2.7 cm x 2.1 cm irregular mass in the left breast central to the nipple middle depth. This irregular mass is hypoechoic with posterior acoustic shadowing. This correlates with mammography findings. The left axilla was interogated and normal appearing lymph nodes are visualized. IMPRESSION: SUSPICIOUS No left axillary adenopathy. The 1.2 cm x 2.7 cm x 2.1 cm irregular mass in the left breast is at a high suspicion for malignancy. An ultrasound guided biopsy is recommended. This exam was interpreted at Station ID: [id number]. SUMMARY: This was discussed with the patient by the radiologist Dr. Vargas at the time of the exam. Electronically Signed By: Mai robbins/:03/07/2024 12:01:51 letter sent: Biopsy Required ACR BI-RADS Category 4C: Suspicious
== END ==
PROVIDERS: PCP Family Medicine; Referring Provider Family Medicine; Visit Provider Family Medicine
DX: N63.25 Unspecified lump in the left breast, overlapping quadrants (principal); R92.8 Other abnormal and inconclusive findings on diagnostic imaging of breast; N64.59 Other signs and symptoms in breast
CPT/HCPCS: 76642; 77066; G0279

== ENCOUNTER → 2024-04-05 11:53 | Outpatient (CLI) | payer MEDICARE, SELFPAY ==
[2023-11-28 08:34] VITALS: BMI 34.3
--- NOTE | 2024-04-05 11:54 | DI.MRI.S_ITS ---
BREAST MRI OF BOTH BREASTS: 04/05/2024 CLINICAL: Bilateral breast cancer. Left nipple inversion. PROCEDURE: MR BREAST BI WO/W CON INDICATIONS: bilateral breast cancer, left nipple inversion TECHNIQUE: The patient was placed prone in a dedicated breast imaging coil. Precontrast axial STIR and 3D FLASH without fat saturation sequences were obtained. Limited imaging sequences were performed due to patient factors. COMPARISON: Mammogram 03/15/2024, 03/07/2024 and breast ultrasound 03/15/2024, 03/07/2024. FINDINGS: Limited noncontrast enhanced sequences acquired due to patient factors with incomplete evaluation of bilateral known malignancies. There is a biopsy clip in the right breast corresponding to biopsy-proven malignancy. In the left breast, there is nipple retraction associated with dense tissue in the central breast containing multiple susceptibility artifacts and corresponding to biopsy-proven malignancy. There are multiple nonenhancing T2 hyperintense hepatic structures. IMPRESSION: Limited exam non-contrast enhanced exam with limited evaluation of bilateral biopsy-proven malignancies. Multiple nonenhancing T2 hyperintense hepatic structures. Findings may represent cysts. This exam was interpreted at Station ID: [id number]. Electronically Signed By: Gayathri Dee M.D., Ph.D. eb/:04/08/2024 08:24:41 ACR BI-RADS Category n/a
== END ==
PROVIDERS: PCP Family Medicine; Referring Provider Surgery; Visit Provider Surgery
DX: C50.911 Malignant neoplasm of unspecified site of right female breast (principal); C50.912 Malignant neoplasm of unspecified site of left female breast; N64.53 Retraction of nipple
CPT/HCPCS: 77049; A9579

== ENCOUNTER → 2024-05-22 06:45 | Outpatient (CLI) | payer MEDICARE, SELFPAY ==
[2023-11-28 08:34] VITALS: BMI 34.3
--- NOTE | 2024-05-22 06:46 | DI.NM.S_ITS ---
PROCEDURE: NM SENTINEL NODE INJECT ONLY RADIOPHARMACEUTICAL: 0.5-1.0 mCi Millipore filtered Tc-99m sulfur colloid. INDICATIONS: Bilateral Breast Cancer COMPARISON: None. PROCEDURE: The area around the nipple was prepped and draped in a sterile fashion. Tc-99m sulfur colloid was injected intra-dermally around the outer edge of the areola in the bilateral breast. No image was obtained. IMPRESSION: Administration of radiotracer into the bilateral breast periareolar region for intra-operative sentinel lymph node localization. Dictated by: Agustina South M.D. on 05/22/2024 at 22:34 Approved by: Agustina South M.D. on 05/22/2024 at 22:34
== END ==
PROVIDERS: PCP Family Medicine; Referring Provider Surgery; Visit Provider Surgery
DX: C50.911 Malignant neoplasm of unspecified site of right female breast (principal); C50.912 Malignant neoplasm of unspecified site of left female breast; Z17.0 Estrogen receptor positive status [ER+]
CPT/HCPCS: 38792; A9541

== ENCOUNTER 2024-05-22 06:47 | Day surgery (SDC) | payer MEDICARE, SELFPAY ==
[2023-11-28 08:34] VITALS: BMI 34.3
[2024-05-10 13:25] VITALS: BMI 35.5
[2024-05-22] VITALS (14 sets, daily range): BP systolic 100–155; BP diastolic 61–89; PULSE 73–82; RESP 8–21; TEMP 36.2–36.5; O2SAT 88–99; BMI 34.3
--- NOTE | 2024-05-22 | DI.MG.S_ITS ---
DIGITAL MAMMOGRAPHY GUIDED WIRE LOCALIZATION RIGHT BREAST WITH POST DIGITAL MAMMOGRAPHIC IMAGIN05/22/2024 CLINICAL: Right Breast Cancer. Correlation is made to exams dated: 04/05/2024 breast MRI, 03/07/2024 ultrasound, 03/07/2024 mammogram - [facility], and 03/15/2024 stereotactic biopsy - [facility]. A wire localization using digital mammography guidance was performed for the marker clip located in the right breast at 10 o'clock middle depth. This was described on the previous mammography report. The skin was prepped in the usual manner. Local anesthetic was administered to the access site. The localization was approached from the craniocaudal aspect. A J-hook wire was inserted into the targeted area under digital mammography guidance. Post placement digital mammographic imaging was obtained. IMPRESSION: WIRE LOCALIZATION Wire localization for the ribbon marker clip in the right breast at 10 o'clock middle depth was successful. Wire is immediately adjacent to the marker clip. This exam was interpreted at Station ID: [id number]. Ghanshyam Howard M.D. slc/:05/22/2024 09:39:41
--- NOTE | 2024-05-22 | DI.MG.S_ITS ---
SPECIMEN: 05/22/2024 CLINICAL: Right breast specimen. Correlation is made to exams dated: 05/22/2024 localization, 04/05/2024 breast MRI - [facility], 03/15/2024 stereotactic biopsy - [facility] [place], and 03/07/2024 mammogram - [facility]. Right breast lumpectomy specimen contains the ribbon biopsy clip and the localization wire. IMPRESSION: SPECIMEN Right breast lumpectomy specimen contains the ribbon biopsy clip and the localization wire. Report called to the OR at 4:09pm. This exam was interpreted at Station ID: [id number]. Ghanshyam Howard M.D. slc/:05/22/2024 16:25:43
--- NOTE | 2024-05-22 | PATH_ITS ---
[facility] Accession Number: [id number] No. of containers..06 Tissue . 01 Material submitted: . PART A: breast - LEFT BREAST MASS PART B: breast - NEW LEFT LATERAL MARGIN, LEFT BREAST PART C: axillary tail of breast - LEFT AXILLARY NODE PART D: breast - RIGHT BREAST MASS PART E: breast - RIGHT BREAST NEW LATERAL MARGIN PART F: axillary tail of breast - RIGHT AXILLARY NODE . 01 Clinical history: . A) GREEN ANTERIOR, BLUE INFERIOR, ORANGE LATERAL, YELLOW . 01 Diagnosis: A. LEFT BREAST, LUMPECTOMY: Invasive lobular carcinoma (see comment below). . CAP SYNOPTIC SUMMARY: Please note this summary combines findings from parts A, B, and C. . Procedure: Lumpectomy. Specimen Laterality: Left. Histologic Type: Invasive lobular carcinoma, classic type (see diagnosis comment). Histologic Grade (Silvia Histologic Score): Intermediate/grade 2 of 3 (score 6 of 9). -Glandular/Tubular Differentiation: Poor (score 3). -Nuclear Pleomorphism: Intermediate (score 2). -Mitotic Rate: Low (score 1). Tumor Size: 45 mm. Tumor Focality: Unifocal. Ductal Carcinoma In-Situ (DCIS): Absent (see diagnosis comment). Lobular Carcinoma In-Situ: Present, classic type. Tumor Extent: Skin is present and involved. -Carcinoma directly invades dermis of nipple. -Skin Satellite Foci: Not identified -Dermal Lymphatic and/or Vascular Invasion: Not identified. Lymphatic and/or Vascular Invasion: Present, extensive. . Treatment Effect in the Breast: No known presurgical therapy. Treatment Effect in the Lymph Nodes: Not applicable. Residual Cancer [place] (RCB) Parameters: Not Applicable. . Margin Status for Invasive Carcinoma: Margins involved by invasive carcinoma. -Margins Involved by Invasive Carcinoma: Medial (extent of 1 mm). -Distance from Invasive Carcinoma to Lateral Margin: Unclear, see margin comment below. -Distance from Invasive Carcinoma to All Other Margins: Greater than 2 mm. Margin Status for DCIS: Not applicable. Margin Comment: Regarding the lateral margin, a small focus of invasive carcinoma is present at the inked cauterized, concave edge and greater than 2 mm from the inked cauterized, convex edge of the separately submitted new lateral margin (part C). The new lateral margin specimen is unoriented so it cannot be said with certainty if this represents true involvement of the new margin. . Regional Lymph Node Status: Tumor present in regional lymph nodes. -Number of Lymph Nodes with Macrometastases: 2. -Number of Lymph Nodes with Micrometastases: 0. -Number of Lymph Nodes with Isolated Tumor Cells: Not applicable. -Size of Largest Fernanda Metastatic Deposit: 6 mm. -Extranodal Extension: Present. -Total Number of Lymph Nodes Examined (sentinel and non-sentinel): 2. -Number of [place] Nodes Examined: 2. . Distant Site(s) Involved: Not applicable. . pTNM Classification (AJCC 8th Edition): pT2 pN1a(sn). -pM Category: Not applicable - Cannot be determined from the submitted specimens. . Additional Findings: Biopsy clips identified. . SPECIAL STUDIES Breast Biomarker Testing Performed on Previous Biopsy ([facility] case [id number]) -ER: Positive (2-3+, 70%). -IA: Positive (3+, 10%) -HER2 (by immunohistochemistry): Negative (score 1+). -Ki-67 Index: Low (5%). . B. LEFT BREAST, NEW LATERAL MARGIN, EXCISION: Invasive lobular carcinoma, margin status unclear. Please see margin comment in synoptic summary above for part A. . C. LEFT SENTINEL LYMPH NODE, BIOPSY: Two lymph nodes, positive for metastatic carcinoma (2/2). Please see synoptic summary above for part A. . D. RIGHT BREAST, WIRE-GUIDED LUMPECTOMY: Invasive carcinoma of no special type (ductal). . CAP SYNOPTIC SUMMARY: Please note this summary combines findings from parts D, E, and F. . Procedure: Lumpectomy. Specimen Laterality: Right. Histologic Type: Invasive carcinoma of no special type (ductal). Histologic Grade (Silvia Histologic Score): Low/grade 1 of 3 (score 4 of 9). -Glandular/Tubular Differentiation: Good (score 1). -Nuclear Pleomorphism: Intermediate (score 2). -Mitotic Rate: Low (score 1). Tumor Size: 6 mm (biopsy measurement. Tumor Focality: Unifocal. Ductal Carcinoma In-Situ (DCIS): Present, negative for extensive intraductal component. -Architectural Patterns: Solid, cribriform. -Nuclear Grade: Intermediate. -Necrosis: Absent. -Extent: 6 mm. Lobular Carcinoma In-Situ: Absent. Tumor Extent: Not applicable (skin, nipple, and skeletal muscle are absent). Lymphatic and/or Vascular Invasion: Not identified. . Treatment Effect in the Breast: No known presurgical therapy. Treatment Effect in the Lymph Nodes: Not applicable. Residual Cancer [place] (RCB) Parameters: Not Applicable. . Margin Status for Invasive Carcinoma: All margins negative for invasive carcinoma by greater than 2 mm. Margin Status for DCIS: All margins negative for DCIS by greater than 2 mm. . Regional Lymph Node Status: All regional lymph nodes negative for tumor. -Total Number of Lymph Nodes Examined (sentinel and non-sentinel): 1. -Number of [place] Nodes Examined: 1. . Distant Site(s) Involved: Not applicable. . pTNM Classification (AJCC 8th Edition): pT1b pN0(sn). -pM Category: Not applicable - Cannot be determined from the submitted specimens. . Additional Findings: Biopsy clip identified. . SPECIAL STUDIES Breast Biomarker Testing Performed on Previous Biopsy ([facility] case [id number]) -ER: Positive (3+, 70%). -IA: Positive (3+, 50%) -HER2 (by immunohistochemistry): Negative (score 1+). -Ki-67 Index: Low (less than 5%). . E. RIGHT BREAST, NEW LATERAL MARGIN, EXCISION: Histologically unremarkable fibroadipose tissue and breast parenchyma. Negative for atypia, in situ carcinoma, and invasive carcinoma. . F. RIGHT AXILLARY SENTINEL LYMPH NODE, EXCISION: One lymph node, negative for metastatic carcinoma (0/1). [facility] 06/01/2024 1603 Local . 01 Comment: Parts A-C: The original diagnosis of invasive ductal carcinoma with lobular pattern of infiltration and DCIS is noted. The lobular pattern is striking in the resection specimen, and ductal patterns are not identified. IHC for e-cadherin is performed on block A13, demonstrating complete loss in the invasive tumor and near complete loss with rare extremely weak/attenuated staining of the in-situ component. These results support the diagnosis of invasive lobular carcinoma with lobular carcinoma in situ. Please also note the margin comment in the synoptic report. . Additional immunohistochemistry for CK7 is performed on blocks A3, B10, and C1 and are positive for invasive carcinoma. . Parts D, E, and F: Immunohistochemistry for CK7, p63, and myosin are performed on blocks D2, D4, D6, and D7 and demonstrate the invasive and in-situ components within block D2. Blocks D4, D6, and D7 do not show invasive or in-situ carcinoma. . Additional immunohistochemistry for ER and CK 5/6 is performed on block E1 and are negative for atypical ductal hyperplasia. CK7 is performed on block F1 and is negative for carcinoma. . This case has been reviewed with Dr. Griffin, who agrees with the above interpretations. . Technical Note: The immunohistochemical stains reported were performed with appropriate controls at [facility] ([address], [facility] [address]). This test was developed and performance characteristics validated by [facility] ([facility]). It has not been cleared or approved by the Food and Drug Administration. . 01 Electronically signed: . Lupe May DO, Pathologist NPI- [id number] . 01 Gross description: . A. Received In formalin with two identifiers and left breast mass. Specimen: A previously inked left lumpectomy with skin and nipple. Weight: 177 grams. Measurement: 10.0 cm superior to inferior, 6.9 cm anterior to posterior, 5.7 cm medial to lateral. Skin ellipse: Present. 9.7 x 3.9 cm with barnett unremarkable wrinkled skin. Nipple/areola: A 0.4 x 0.3 cm inverted nipple within a faint 4.2 x 2.1 cm areola. Wire: Absent. Margins: Inked by the surgeon as follows: anterior green, inferior blue, lateral orange, medial yellow, posterior black. No red ink is identified on the specimen as received, but per the provided inking melendez, red is superior. Green ink is on the superior third of the skin ellipse including the nipple and continues onto the adjacent superior adipose touching the black ink from the posterior margin. Red ink is added overlying both black and green ink at the superior aspect. Blue ink is on the lower third of the skin surface, leaving the central third of the skin uninked. Orientation is accurate per the inks as received. Inking reinforced at the bench. Sliced: From superior to inferior into 14 slices . Lesion: One lesion identified. Description: A barnett, firm, stellate lesion. Size: 4.7 x 4.3 x 2.3 cm. Slices involved: 5-12. Biopsy site: Present. A rink and an hourglass clip are identified in slice 11. Distance to margins: The lesion grossly involves the nipple, orange inked margin, and yellow margin, 0.5 cm from the black margin, and is greater than 1 cm from the red and blue margins. Other: The remaining cut surfaces are yellow to white fibroadipose tissue with fibrous tissue occupying less than 10% of the cut surfaces. Road Packer Operator sections are submitted as follows: A1-A2: Rep slice 1 red margin and skin perpendicular. A3: Nipple and no palpable lesion, slice 4. A4: Nipple involvement slice 5. A5: Nearest yellow margin slice 5. A6: Nearest black margin, slice 9. A7-A8: Composite lateral half of slice 10 from anterior to posterior, purple ink is adjacent cut surfaces. Nearest orange margin in A9. A10-A12: Composite medial half of slice 10 from anterior to posterior, purple ink is adjacent cut surfaces. A13: Central lesion with biopsy site slice 11. A14-A15: Rep slice 13, no lesion. A16-A17: Slice 14, blue margin and skin perpendicular. B. Received in formalin with two patient identifiers and new left lateral margin left breast, is an unoriented fragment of yellow lobulated fibroadipose tissue weighing 31 grams and measuring 7.1 x 6.3 x 1.6 cm. The concave surface is inked black while the convex surface is inked green. The specimen is serially sectioned into 12 slices to reveal a yellow soft cut surface with no lesions identified. Fibrous tissue occupies less than 10% of the cut surface. . Road Packer Operator sections are submitted as follows: B1: Rep slice 1 perpendicular. B2-B3: Composite slice 3. B4-B5: Composite slice 5. B6-B7: Composite slice 7. B8-B9: Composite slice 9. B10-B11: Composite slice 11. B12: Rep slice 12 perpendicular. C. Received in formalin with two patient identifiers and left axillary node left breast, are two pale barnett firm lymph node candidates, 0.4 x 0.3 x 0.2 cm and 1.2 x 1.1 x 0.3 cm. Both lymph node candidates are submitted intact in C1. D. Received: In formalin with two patient identifiers and right breast mass. Specimen: Previously inked right lumpectomy. Weight: 50 grams. Measurement: 9.1 cm superior to inferior, 4.8 cm anterior to posterior, 3.0 cm medial to lateral. Skin ellipse: Absent. Wire: Present, penetrating superior and terminating inferolaterally. Margins: Inked by the surgeon, anterior green, inferior blue, lateral orange, medial yellow, posterior black, superior red. Inking reinforced at the bench. Sliced: From superior to inferior into 14 slices. Lesions: One lesion identified. Description: An ill-defined barnett firm lesion. Size: 0.5 x 0.4 x 0.3 cm. Slice involved: Slices 12 and 13. Biopsy site: A ribbon-shaped clip is found within slice 11. Distance to margins: The biopsy site is 0.1 cm from the orange and green margins, and greater than 1 cm from all remaining margins. The palpated lesion is 0.1 cm from the orange margin, 0.4 cm from the green margin, 1.0 cm from the black margin, and greater than 1 cm from all remaining margins. Other: The cut surface is yellow to white fibroadipose tissue with fibrous tissue occupying less than 10% of the cut surface and a small amount of hemorrhage associated with the wire tract. Road Packer Operator sections are submitted as follows: D1; Rep slice 1, red margin perpendicular. D2-D3: Composite slice 10, no lesion. D4-D5: Composite slice 11 with biopsy site. D6: Slice 12. D7: Slice 13. D8-D9: Road Packer Operator slice 14 perpendicular. E. Received in formalin with two patient identifiers and right breast new lateral margin, is a yellow to hemorrhagic irregular soft tissue fragment weighing 16 grams and measuring 6.5 x 3.0 x 3.7 cm. The very slightly concave ragged hemorrhagic surface is inked black while the opposite yellow lobulated surface is inked blue. Specimen is serially sectioned into 10 slices to reveal a yellow to hemorrhagic cut surface with fibrous tissue occupying approximately 10% of the cut surface. No lesions are identified, and the specimen is submitted entirely as follows: E1-E2: Entire slice 1 perpendicular. E3-E10: Slices 2-9 sequential. E11-E12: Slice 10, perpendicular. F. Received in formalin with two patient identifiers and right axillary node, is a single barnett lymph node candidate with attached adipose, all measuring 1.5 x 1.3 x 0.3 cm. The specimen is submitted intact in F1. . All specimens were removed on 05/22/2024 at approximately 1434 hours. Time in formalin not provided. Cold ischemic time cannot be calculated. Total fixation time is approximately 61 hours following additional fixation. ([id number]) /MRV 06/01/2024 1558 Local . 01 Pathologist provided ICD-10: C50.911, C50.912 . 01 CPT . 606271, 432043, 264181, 106951, 246026, 930258, M50038, [id number] Specimen Comment: A courtesy copy of this report has been sent to [phone] Performed at: [address] [address], [place], [place] [id number] MD Wilbert Evans MD Phone: [phone]
--- NOTE | 2024-05-22 | DI.MG.S_ITS ---
SPECIMEN: 05/22/2024 CLINICAL: Left breast specimen. Correlation is made to exams dated: 03/15/2024 [place] [facility] [place], 03/07/2024 mammogram - [facility], and 03/15/2024 ultrasound biopsy [place] [facility] [place]. Left breast lumpectomy specimen contains the biopsy clips and suspicious calcifications. IMPRESSION: SPECIMEN Left breast lumpectomy specimen contains the biopsy clips. Result communicated to the OR at 2:51 pm. This exam was interpreted at Station ID: [id number]. Ghanshyam Howard M.D. slc/:05/22/2024 14:59:30
[2024-05-22] MEDS: ACETAMINOPHEN 325 MG TABLET 975 MG PO (07:50)
[2024-05-22] MEDS: LACTATED RINGERS 1,000 ML 42 ML IV ×2 (07:50→17:21)
--- NOTE | 2024-05-22 12:55 | PM.PREOP ---
Pre-operative Note COVID-19 COVID-19 status: Not tested Interval Note History & Physical reviewed/Exam performed by Physician: Yes Changes to H&P: No H&P completed within 30 days and has changed as indicated here:: Correction from the initial H&P: procedure will be a wire localized right lumpectomy, a left lumpectomy and bilateral sentinel node biopsy ASA Class (for procedural sedation): II
[2024-05-22] MEDS: CEFAZOLIN 2 GM/100 ML PREMIX 100 ML IV (13:51)
--- NOTE | 2024-05-22 14:16 | SUR.OPER ---
Supine on padded OR bed, head on pillow, arms secured on padded arm boards at <90 degrees abduction, legs uncrossed, safety belt at thigh, tape over blanket over lower legs.
[2024-05-22] MEDS: BUPIVACAINE 0.5% W/ EPI (PF) 30 ML VIAL INJ (14:43)
[2024-05-22] MEDS: METHYLENE BLUE 50 MG/10 ML VIAL 10 MG IV (16:30)
[2024-05-22] MEDS: ACETAMINOPHEN IV 1,000 MG/100 ML VIAL 400 MG IV (17:01)
--- NOTE | 2024-05-22 17:08 | PM.OP.1 ---
Operative Date/Time/Diagnoses Date of procedure: 05/22/24 Time of procedure: 17:09 Pre-op diagnosis: Bilateral breast cancer Post-op diagnosis: same Procedure & Clinicians Procedure: Right wire localization lumpectomy Right sentinel lymph node biopsy Left lumpectomy Left sentinel lymph node biopsy Same procedure as scheduled: Yes Surgeon: Dilshad Logan Director Of Public Works: Dandy De Jesus Anesthesia Type: General Operative Notes Procedure in detail: The patient is a 78-year-old woman with bilateral breast cancer. The left breast cancer was palpable in the central inferior left breast. The right cancer was not palpable and she had a wire placed by Radiology prior to surgery. She also had bilateral lymphoscintigraphy injections at radiology prior to surgery. The patient was given preoperative antibiotic. The patient was brought to the operating room, placed on the table in the supine position, general anesthesia was induced. Arms were abducted on arm boards. A total of 5 mL of 100% methylene blue was injected along the superior aspect of each areolar border. Bilateral breasts and axilla were prepped and draped in the usual fashion. A time-out was performed. Additional massage was performed to spread the methylene blue. We started with the left lumpectomy. There was a palpable fullness in the central inferior left breast. Nipple inversion was noted. We made a triangular incision to remove the mass in the inferior breast. We extended the dissection down to the pectoral fascia. We took an additional left lateral margin because the tissue appeared somewhat dense and fibrinous along that aspect. A few clips were used to dilshad the cavity. We used the margin marker kit to orient the specimen in the following manner: Green: anterior Blue: Inferior [place]: Lateral Yellow: Medial Black: Posterior Read: Superior We injected lidocaine into the skin and made a transverse left axillary incision of roughly 6 cm. We dissected down through the subcutaneous adipose tissue. The lymphoscintigraphy signal was no higher than the background and no blue dye was noted however there was a firm palpable node high in the axilla. This appeared to be contiguous with other firm nodes. We excised a portion of the first node and sent it as ?left axillary node and cord. There was no detectable lymphoscintigraphy or blue dye. We then irrigated both wounds with sterile saline. We made flaps along the medial and lateral inframammary fold to allow closure. The incisions were closed with multiple interrupted 3-0 Vicryl dermal sutures followed by running 4-0 Monocryl subcuticular closure. Next we turned to the right breast. We made a 7 cm radial incision just lateral to the wire. We created flaps and dissected down to the chest wall keeping the wire within the center portion of specimen. We could see the to the wire close to the lateral inferior portion of the dissection. The specimen was excised with the wire intact. The specimen was sent to Radiology for specimen mammogram. We took an extra new right lateral margin because it appeared to be most of the tip of the wire. We placed a few clips in the lumpectomy cavity. We used the margin marker kit to orient the primary right lumpectomy specimen in the following manner: Green: anterior Blue: Inferior [place]: Lateral Yellow: Medial Black: Posterior Read: Superior Next we made a 6 cm transverse incision in the right axilla. We dissected down into the axilla. There was no strong signal with the lymphoscintigraphy probe. It was no blue dye visible. There was a small soft palpable node low in the axilla. We excised it and sent it as ?right axillary node?. There were some bleeders which were controlled with clips. We then irrigated the wound cavities with sterile saline. Local anesthetic was injected into the muscle layer of the lumpectomy site. A few bleeders were cauterized. Once the wound cavity was hemostatic we injected some local anesthetic into the dermis and closed the incision in layers using multiple interrupted 3-0 Vicryl dermal sutures followed by a running 4-0 Monocryl subcuticular closure. Radiology called the OR reporting that the clips was visualized within both of the specimens. Steri-Strips were applied followed by dry gauze and a breast binder. EBL: 50 mL Specimens: Left breast mass, new left lateral margin, left axillary node, right breast, right breast new lateral margin, right axillary node Dandy BAUM provided assistance with exposure, retraction and closure of incisions. Post-operative Condition: stable Disposition: PACU
[2024-05-22] MEDS: OXYCODONE IR 5 MG TABLET PO (18:30)
== END 2024-05-22 18:48 | disposition home or self-care (01) ==
PROVIDERS: PCP Family Medicine; Referring Provider Surgery; Visit Provider Surgery
PROC: (CPT 38500; principal; 2024-05-22 12:45)
DX: C50.911 Malignant neoplasm of unspecified site of right female breast (principal); C50.912 Malignant neoplasm of unspecified site of left female breast; Z87.891 Personal history of nicotine dependence; Z17.411 Hormone receptor positive with human epidermal growth factor receptor 2 negative status; Z17.21 Progesterone receptor positive status; C77.3 Secondary and unspecified malignant neoplasm of axilla and upper limb lymph nodes
CPT/HCPCS: 38500; 19301; 19281; 38792; 76098; A9541; C1819; J0134; J0690; J2250; J2704; J3010; Q9968

== ENCOUNTER 2024-06-12 09:34 | Day surgery (SDC) | payer MEDICARE, SELFPAY ==
[2024-05-23 13:24] VITALS: BMI 34.3
[2024-06-12] VITALS (13 sets, daily range): BP systolic 93–132; BP diastolic 58–77; PULSE 67–106; RESP 12–18; TEMP 36.1–36.7; O2SAT 90–98; BMI 34.3
--- NOTE | 2024-06-12 | PATH_ITS ---
[facility] Accession Number: [id number] No. of containers..01 Tissue . 01 Material submitted: . breast - LEFT BREAST . 01 Clinical history: . LONG- LATERAL SHORT- SUPERIOR . 01 Diagnosis: LEFT BREAST, SIMPLE MASTECTOMY: Skin with scar (length 9.5 cm). Lumpectomy cavity (slices 6-16 of 25), associated with multiple U-shaped clips. Negative for residual carcinoma. MRV 06/20/2024 1251 Local . 01 Electronically signed: . Jihan Williamson MD, Pathologist NPI- [id number] . 01 Gross description: . Received: In formalin with two identifiers and no site on jar. Specimen: An oriented simple mastectomy. Weight: 617 grams. Measurement: 7.2 cm superior to inferior, 23.8 cm medial to lateral, 8.7 cm anterior to posterior. Skin ellipse: Present 20.9 x 7.4 cm with barnett, wrinkled skin. A linear well-healed scar is located running from the superior to inferior margins, and is located on the medial half of the skin (9.5 x 0.2 cm). Nipple/areola: Not present, consistent with removal during previous lumpectomy. Axillary tail: Not identified. Margins: The skin ellipse is oriented by the surgeon with a short suture superior and a long suture lateral per the requisition. Two defects are identified on the margins. The first defect (1.2 x 0.9 cm is located on the medial central area of the posterior margin opening into the presumed previous lumpectomy cavity. The second defect (1.2 x 0.6 cm) is located on the central anterior superior margin. Inked: Anterior superior blue, anterior inferior green, posterior black, and margin defects orange. Slices: Sectioned from medial to lateral into 25 slices. Lesion: A lumpectomy cavity with associated surgical site changes are identified. Description: A seroma cavity with pale barnett fibrous associated changes. Multiple U-shaped clips are identified with the posterior and superior aspects of the cavity. Measurement: 7.5 x 5.6 x 5.3 cm. Slices involved: 6-16. Distance to margins: The seroma cavity involves the posterior and anterior superior margins by aforementioned defect, surgical changes are identified at the anterior inferior margin as well as adjacent to the skin, widely free from all remaining margins. Other: The remaining cut surfaces are yellow to white fibroadipose tissue with less than 10% fibrous tissue and no additional lesions identified. . Fixation: The specimen was removed on 06/12/2024. Time not provided. Cold ischemic time cannot be calculated. Total fixation time is approximately 65 hours following additional fixation. . Bore Miner Operator sections are submitted as follows: A1: Scar. A2: Slice 5, no biopsy cavity. A3: Slice 6, seroma site changes. A4: Slice 7, medial seroma cavity. A5: Slice 9, posteroinferior seroma cavity with nearest inferior margin involvement and skin. A6: Slice 10, posterior defect. A7: Slice 12, anterior superior defect. A8: Slice 15, lateral seroma cavity and nearest posterior margin. A9: Slice 16, seroma cavity changes. A10: Slice 17, no lesion identified. A11: Upper outer quadrant slice 1 (black and blue ink) and slice 5 (blue ink only). A12: Lower inner quadrant slice 2 (green and black ink) and slice 4 (no ink). A13: Lower outer quadrant slice 20 (green ink) and slice 22 (no ink). A14: Upper outer quadrant slice 18 (blue ink) and slice 25 (black ink). ([id number]) /OSMIN 06/14/2024 1030 Local . 01 Microscopic: . An immunohistochemistry panel is performed to further evaluate the cells of interest. The control stains show appropriate reactivity. . RESULTS: Blocks A1, A3-A9 SUZAN: Negative. . The absence of SUZAN staining in the regions of interest mitigates against the presence of residual ductal carcinoma. . * This test was developed and the performance characteristics were validated by [employer]. It has not been cleared or approved by the U.S. Food and Drug Administration. . 01 Pathologist provided ICD-10: C50.912 . 01 CPT . 407020, L91804 Specimen Comment: A courtesy copy of this report has been sent to [phone] Performed at: [address] [id number] MD Wilbert Evans MD Phone: [phone]
[2024-06-12] MEDS: LACTATED RINGERS 1,000 ML 42 ML IV (10:47)
--- NOTE | 2024-06-12 12:22 | PM.PREOP ---
Pre-operative Note COVID-19 COVID-19 status: Not tested Interval Note History & Physical reviewed/Exam performed by Physician: Yes Changes to H&P: No ASA Class (for procedural sedation): III
[2024-06-12] MEDS: CEFAZOLIN 2 GM/100 ML PREMIX 100 ML IV (13:05)
--- NOTE | 2024-06-12 13:30 | SUR.OPER ---
Supine on padded OR bed, head on pillow, arms padded and tucked at sides, legs uncrossed, safety belt at thigh.
--- NOTE | 2024-06-12 13:30 | SUR.OPER ---
Supine on padded OR bed, head on pillow, right arm padded and tucked at sides, left arm extended on padded arm board, legs uncrossed, safety belt at thigh, tape over blanket over lower legs .
[2024-06-12] MEDS: LIDOCAINE 1% W/EPI 20ML 20 ML INJ ×2 (13:36→13:39)
[2024-06-12] MEDS: BUPIVACAINE 0.5% (PF) 30 ML VIAL INJ (14:18)
--- NOTE | 2024-06-12 15:27 | SUR.OPER ---
Supine on padded OR bed, head on pillow, left arm padded and tucked at side, right arm on padded arm board, legs uncrossed, safety belt at thigh.
--- NOTE | 2024-06-12 15:42 | DI.RAD.S_ITS ---
PROCEDURE: XR CHEST 1V INDICATIONS: POST OP PORT A CATH PLACEMENT TECHNIQUE: One view of the chest was acquired. COMPARISON: [facility], CR, XR CHEST 1V, 12/27/2022, 9:52. [facility], CR, XR CHEST 2V, 02/06/2022, 10:42. FINDINGS: Surgical changes and devices: -Right-sided port with the catheter tip at the right atrium. -Left-sided chest tube with the tip at the lower thorax. -Bilateral breast clips. Lungs and pleura: No consolidation. No pleural effusion. No pneumothorax demonstrated. Mediastinum: Mediastinal contours appear similar. Heart size is within normal limits. Bones and chest wall: No suspicious bony lesions. Mild scoliosis. Left chest wall subcutaneous emphysema. IMPRESSION: Right-sided port with the catheter tip at the right atrium. Left-sided chest tube with the tip at the lower thorax. No pneumothorax is identified. Dictated by: Ghanshyam Howard M.D. on 06/12/2024 at 15:36 Approved by: Ghanshyam Howard M.D. on 06/12/2024 at 15:38
--- NOTE | 2024-06-12 15:55 | P.OP_ITS ---
Operative Date/Time/Diagnoses Date of procedure: 06/12/24 Time of procedure: 15:55 Pre-op diagnosis: Left breast cancer Post-op diagnosis: same Procedure & Clinicians Procedure: Left completion mastectomy Port-A-Cath Same procedure as scheduled: Yes Surgeon: Dilshad Logan Gerentological Physiotherapist: Dandy De Jesus Anesthesia Type: General Operative Notes Procedure in detail: Preoperative antibiotics were given. The patient was brought to the operating room, placed on the table in the supine position and general anesthesia was induced via LMA. The left arm was abducted on an arm board. The left breast was prepped and draped in the usual fashion. A time-out was performed. We made a 25 cm elliptical skin incision encompassing all of the prior surgical scars from the recent lumpectomy. We used cautery to enter the plane between the breast tissue in the subcutaneous adipose tissue. We developed the superior flap first. We carried the dissection to the superior aspect of the breast tissue and when we saw pectoralis muscle and the left clavicle was palpable and we started to turn and lift the breast off the pectoral fascia. Since the previous surgical incision was at the inframammary fold we just dissected straight down to the fascia here without creating much of a flap. We carried the dissection laterally to the edge of the latissimus muscle. We then removed the breast tissue from the field. We placed a short silk stitch along the superior aspect of the specimen and a long stitch along the lateral aspect. Next we irrigated the wound cavity with 1 L of sterile water. We checked for hemostasis and addressed a few small bleeders with cautery. We injected additional local into the muscle and fascia. We then placed one 19 Malaysian round Yuri drain into the field and brought it out through a lateral stab incision. The drain was secured to the skin with a 2-0 nylon stitch. We then closed the incision in layers using interrupted 3-0 Vicryl dermal sutures followed by running 4-0 Monocryl subcuticular stitch. Next we to took down all the drapes down and we re-prepped and draped for the port over the right pectoral region and right neck. An ultrasound was used to identify the right internal jugular vein. The vein was noted to be patent. An image was saved and printed and placed in the chart. The right internal jugular vein was accessed via the Seldinger technique under ultrasound guidance. The guidewire was inserted into the superior vena cava. C-arm was used to confirm proper position of the guidewire in the superior vena cava and no ectopy was noted. The needle was removed and the wire was clamped to the drape. Next, a port pocket was created just inferior to the medial clavicle using a 15 blade scalpel. Dissection was carried down to the pectoral fascia. A subcutaneous pocket was created using a combination of cautery and blunt dissection. Next, the port which was primed with injectable saline, was secured to the fascia with 3-0 PDS sutures left untied and clamped. The neck incision was extended with an 11 blade scalpel to approximately 5 mm. The dilator and peel-away sheath were inserted over the wire without resistance. The catheter was passed from the neck incision to the chest incision in the subcutaneous tissue using the tunnelling device. The wire and dilator were then removed and the catheter inserted through the peel-away sheath to deliver it into the superior vena cava. The depth of the device was checked using the C-arm and the tip of the device was noted to be in the distal superior vena cava. The exterior portion of the catheter was then trimmed and attached to the port using the strain relief collar. A final image showed good position of the catheter with no kinks. The port was then tucked into the subcutaneous pocket and the sutures were tied to secure the device. The port was then accessed using the Choi needle and it was noted that the device isis and flushed easily without resistance. Approximately 4 mL of heparinized saline were injected into the device. The skin incisions were closed with 3-0 Vicryl and 4-0 Monocryl. Steri-Strips were applied patient was awakened and brought to recovery room EBL: 25 mL Ultrasound: The right internal jugular vein was patent. The right carotid artery was visualized adjacent to the vein. Venipuncture was visualized in real-time using the ultrasound. Fluoroscopy: The device was positioned appropriately with the distal end of the catheter near the atriocaval junction. There were no kinks in the catheter. Specimen: Left breast Dandy BAUM provided assistance with exposure, retraction and closure of incisions. Post-operative Condition: stable Disposition: PACU
[2024-06-12] MEDS: BENZOCAINE/MENTHOL 1 LOZ PKT 1 EACH PO (17:34)
--- NOTE | 2024-06-12 19:38 | PC.NURSE ---
Addendum entered by Nicole Quan R.N. 06/12/24 19:39: Had not voided for 13 hrs prior to coming to floor at 1800. Bladder scanned for 96mls. Original Note: Limb alert bracelet applied to lt arm.
[2024-06-12 20:39] LABS: BUN Creatinine Ratio 14.1 (6-22); Blood Urea Nitrogen 11 mg/dL (7-17); Calcium 8.9 mg/dL (8.4-10.2); Carbon Dioxide 20 mmol/L (22-32); Chloride 106 mmol/L (98-107); Estimated Glomerular Filt Rate > 60 mL/min (>60); Glucose 267 mg/dL (80-110); HEMOLYSIS < 15 (0-50); Potassium 3.8 mmol/L (3.4-5.1); Sodium 138 mmol/L (137-145)
[2024-06-12] MEDS: ACETAMINOPHEN 325 MG TABLET 650 MG PO (21:13)
[2024-06-12] MEDS: ATORVASTATIN 20 MG TABLET 10 MG PO (21:14)
[2024-06-12] MEDS: ALPRAZolam 0.25 MG TABLET 1 MG PO (21:15)
[2024-06-12] MEDS: HYDROCODONE/ACET 5/325 TABLET 1 TAB PO (23:55)
[2024-06-13 01:00] VITALS: BP 104/57; PULSE 99; RESP 18; TEMP 36.6; O2SAT 94
[2024-06-13 05:00] VITALS: BP 104/66; PULSE 91; RESP 18; TEMP 36.6; O2SAT 97
[2024-06-13 07:20] VITALS: O2SAT 97
[2024-06-13] MEDS: HYDROCODONE/ACET 5/325 TABLET 1 TAB PO (07:55)
[2024-06-13] MEDS: SERTRALINE 50 MG TABLET PO (09:03)
[2024-06-13] MEDS: allopurinoL 100 MG TABLET 300 MG PO (09:05)
[2024-06-13 09:06] VITALS: BP 115/59; PULSE 105
[2024-06-13] MEDS: lisinopriL 20 MG TABLET PO (09:06)
[2024-06-13] MEDS: hydroCHLOROthiazide 25 MG TABLET PO (09:06)
[2024-06-13] MEDS: PROPRANOLOL 10 MG TABLET PO (09:06)
[2024-06-13] MEDS: IBUPROFEN 600 MG TABLET PO (11:48)
--- NOTE | 2024-06-13 11:52 | CM.DANOTE ---
Initial DCP Assessment Visit Note Reviewed EMR and team rounds for pt's medical status and needs. Met with pt/spouse in at bedside to introduce self and role, pt was found to be alert/oriented, able to discuss her plans for post-discharge and recovery. Pt lives independent at baseline with her spouse in their own home here in [place]. Her spouse will also transport her home this afternoon, as she has been medically cleared for dc. She denies any CM assistance/resource needs at this time. Payor: Medicare Attending: Dr. Logan Pt is a 78 year-old F post-op day 1 from a L-sided mastectomy. She had a lumpectomy a few weeks ago, however they needed to go back in due to the invasive margins. Pt is already established with an Oncologist at [facility], and has a f/u plan for both chemo and radiation therapy. Her spouse is very supportive, and will be caring for her postoperatively until she can be cleared to begin chemo after about 5-6 weeks. She also states that she has very good voodoo and community support for coping and assistance as needed. Discharge Planning/Care Management CM Discharge Assessment Start: 06/13/24 11:50 Freq: Status: Active Protocol: Document 06/13/24 11:50 DPL (Rec: 06/13/24 11:52 DPL [id number]) Discharge Planning Assessment Assigned Nutrition Instructor JENNIFER Goodman Advance Directives? Yes: Advance directive. Advance Directives on File Yes History Provided By Patient,Significant Other, Medical Record Has Patient been admitted in last 30 No days? Household Members spouse Type of transporation used prior to Drives own vehicle admit Independent with ADL's Yes Is patient alert and oriented? Yes Comment N/A Caregiver for Another No Comment OP Oncology Barriers to Discharge No Discharge Plan Home Transportation Arrangement Spouse Referrals Initiated None needed Whiteboard Updated in Patient Room with Yes name and ext. # of Nutrition Instructor Review Status In Process Please Provide Date Initial DC 06/13/24 Assessment Was Performed Pre-Anesthesia Assessment Start: 06/07/24 10:57 Freq: Status: Active Protocol: Document 06/07/24 10:57 LB (Rec: 06/07/24 11:06 LB [id number]) Pre-Anesthesia Assessment PAC Comment 06/07/24 Chart review. Patient Information Reviewed Via Chart Review Diagnostic Results BMP/CMP,CBC,Urinalysis Comment 11/06/23 at . Primary Care Provider Sae Connolly Seen Specialist in Last 12 Months Yes Specialist Seen Emergency,General surgeon, Orthopedist Primary Language Lithuanian Preferred Language Lithuanian Corrugator Helper Required No Hearing Ability Use of Hearing Aid Dentition Type Full- Upper Anesthesia Review Requested No Fund Controller No alcohol intake current Smoking Status Former smoker how long ago did patient quit smoking Quit 1967. Substance Use Type [#R] does not use Patient is completely paralyzed or No completely immobile Is patient on oxygen? No Does patient have SHAIKH/SOB Yes: A little r/t asthma, PE Hx Sleep Apnea No Currently Taking a Beta Keyon Propranolol 10mg qd. Can You Climb a Flight of Stairs Without No SOB Hx Chest Pain No Hx SOB Yes: A little r/t asthma, PE Hx Syncope or Dizziness No Anti-Coagulant Therapy Yes: Aspirin 81mg qd. Has a Library Science Professor No Cardiac Testing Yes: Echo 12/27/22. Hx Pacemaker/ICD No Diet Type At Home Regular Dysphagia Yes: sometimes with pills Bladder Pattern Incontinent, Stress Hx Urinary Self Catheterization No Diabetes No HgbA1C 5.9 Date 11/06/23 Patient No Lactating No Presence of External or Internal Medical Yes: bilateral hip, bilat IOL, Devices left knee. Received a COVID vaccine? Yes Marital Status Lives With spouse Patient Discharge Plan Description Return Home Emergency Contact Name Ramos Barnard - . Emergency Contact Advance Directives? Yes: Advance directive. Advance Directives on File Yes Power of Journalism Internship No Power of Journalism Internship Name Ramos Barnard - . Power of Journalism Internship
--- NOTE | 2024-06-13 11:54 | P.PN_ITS ---
Subjective Subjective Date Patient Seen: 06/13/24 Time Patient Seen: 11:55 Interval history: Doing well. Pain controlled. Exam Vital Signs (past 8 hours): - 06/13/24 05:00 06/13/24 09:06 Temperature 98 F Pulse Rate 91 H 105 H Respiratory Rate 18 Blood Pressure 104/66 115/59 L Pulse Oximetry 97 Oxygen Flow Rate 0 Oxygen Delivery Method Room Air Oxygen Flow Rate 0 Const General: No acute distress Other: Dressing remains in place without blood staining Objective Labs 06/12/24 20:12 Labs: Laboratory Results - last 24 hr 06/12/24 20:12 Sodium 138 Potassium 3.8 Chloride 106 Carbon Dioxide 20 L BUN 11 Creatinine 0.78 Estimated GFR > 60 BUN/Creatinine Ratio 14.1 Glucose 267 H Calcium 8.9 PFSH Medical History (Updated 04/01/24 @ 12:09 by Dilshad Logan MD) Hearing loss History of COVID-19 (~2019) Pulmonary embolism, bilateral (2022) Depression, controlled Depression Allergic rhinitis (Unknown) Asthma (Unknown) Eczema (Unknown) Foot pain (Unknown) Fractures (Unknown) Lumbar disc disease (Unknown) Shoulder pain (Unknown) Ankle pain (Unknown) Carpal tunnel syndrome (Unknown) Chronic back pain (Unknown) Cataracts, bilateral (~2014) Painful menstrual periods (~1958) Heavy menstrual period (~1958) Hyperlipemia (Unknown) Osteopenia (Unknown) Asthma (Unknown) Glaucoma (2012) Hypertension (Unknown) Surgical History (Updated 06/07/24 @ 11:06 by Karla Buckner RN) S/P bilateral breast lumpectomy (05/22/24) History of total left knee replacement (11/14/23) History of total right hip replacement (2016) History of colonoscopy (2020) Hx of appendectomy (2015) Hx of cataract surgery (2014) Hx of tonsillectomy (~1953) History of left hip replacement (2015) Family History Child Age: 47 Heart disease Hypertension Stroke Mother Hypertension Stroke High cholesterol Father Heart disease Grandmother Heart disease Grandmother No problems noted. Social History marital status: household members: spouse occupational status: employed Smoking Status: Former smoker Tobacco: How many years used: 5 alcohol intake: current substance use type: does not use Assessment & Plan Assessment and plan (1) Bilateral breast cancer: Qualifiers: Breast location: unspecified site of breast Estrogen receptor status: p ositive Patient sex: female Qualified Code(s): C50.911 - Malignant neoplasm of unspecified site of right female breast; C50.912 - Malignant neoplasm of unspecified site of left female breast; Z17.0 - Estrogen receptor positive status [ER+] Status: Acute Plan Home today Drain can be removed in about 1 week when output has decreased to less than 15mL per day Time-Based Coding :: [TOTAL MINUTES] spent with patient and on the chart (including review of chart, obtaining history, exam, reviewing outside data, placing orders, documenting exam and treatment plan, and counseling patient) on [DATE]. Quality VTE Deep Vein Thrombosis/Pulmonary Embolism Present on Admission: No IH PROFEE Biology Adjunct Instructor Document charge(s): No
== END 2024-06-13 13:30 | disposition home or self-care (01) ==
LOC: OR 09:35 → AC 09:39
PROVIDERS: PCP Family Medicine; Referring Provider Surgery; Visit Provider Surgery
PROC: 0HTU0ZZ Resection of Left Breast, Open Approach (ICD-10-PCS; CPT 19303; principal; 2024-06-12 11:45)
PROC: (CPT 19303; 2024-06-12 11:45)
DX: C50.912 Malignant neoplasm of unspecified site of left female breast (principal); Z17.0 Estrogen receptor positive status [ER+]; Z87.891 Personal history of nicotine dependence
CPT/HCPCS: 19303; 36561; 71045; 76000; 80048; 94762; C1788; J0690; J1100; J1644; J2250; J2405; J2704; J3010

== ENCOUNTER → 2024-09-17 17:48 | Outpatient (CLI) | payer MEDICARE, SELFPAY ==
[2024-06-12 09:59] VITALS: BMI 34.3
--- NOTE | 2024-09-17 17:56 | DI.RAD.S_ITS ---
PROCEDURE: XR CHEST 2V INDICATIONS: cough TECHNIQUE: 2 views of the chest were acquired. COMPARISON: [facility], CT, CT ANGIO CHEST PE, 04/18/2024, 11:46. [facility], CR, XR CHEST 1V, 06/12/2024, 16:05. FINDINGS: Surgical changes and devices: A stable right-sided chest port is seen, with the tip within the right atrium. Bilateral chest wall clips are seen. Lungs and pleura: Lungs are clear, yet hyperexpanded. No pleural effusions or pneumothorax. Mediastinum: The cardiac contours are within normal limits. The aorta demonstrates calcification and tortuosity. Bones and chest wall: No suspicious bony abnormalities. Age-appropriate bony degenerative changes are seen. Accentuated thoracic kyphosis is seen. Soft tissues appear unremarkable. IMPRESSION: Hyperexpanded lungs, without an acute cardiopulmonary process identified. No focal infiltrates are seen. Postoperative and degenerative changes are seen. Dictated by: Deejay Solorzano M.D. on 09/19/2024 at 10:33 Approved by: Deejay Solorzano M.D. on 09/19/2024 at 10:35
== END ==
LOC: DI 17:54
PROVIDERS: PCP Family Medicine; Referring Provider Family Medicine; Visit Provider Family Medicine
DX: R05.9 Cough, unspecified (principal); I70.0 Atherosclerosis of aorta; M40.204 Unspecified kyphosis, thoracic region
CPT/HCPCS: 71046

== ENCOUNTER 2024-10-08 16:02 | Emergency (ER) | payer MEDICARE, SELFPAY ==
[2024-06-12 09:59] VITALS: BMI 34.3
[2024-10-08 16:19] VITALS: BP 118/60; PULSE 111; RESP 20; TEMP 37.2; O2SAT 96; BMI 29.2
--- NOTE | 2024-10-08 16:25 | DI.RAD.S_ITS ---
PROCEDURE: XR CHEST 1V INDICATIONS: Shortness of breath TECHNIQUE: One view of the chest was acquired. COMPARISON: [facility], ANIRUDH, XR CHEST 1V, 06/12/2024, 16:05. [facility], CR, XR CHEST 1V, 12/27/2022, 9:52. FINDINGS: Surgical changes and devices: Right chest Port-A-Cath in stable position. Surgical clips project over the breasts bilaterally. Lungs and pleura: Bilateral chronic interstitial prominence. No pleural effusions or pneumothorax. Mediastinum: Mediastinal contours appear normal. Heart size is normal. Bones and chest wall: No suspicious bony lesions. Overlying soft tissues appear unremarkable. IMPRESSION: No acute cardiopulmonary abnormality is seen. Approved by: Ihsan Gibbons M.D. on 10/08/2024 at 16:55
--- NOTE | 2024-10-08 16:25 | EKG_ITS ---
[address] [address] Test Date: 2024-10-08 Pat Name: Jody Barnard Department: Room: Gender: Female Head Of Marketing Adometry: RICHY : 1945 Requested By: Order Number: [id number] Reading MD: Cosme Meléndez Measurements Intervals [place] Rate: 110 P: 46 OK: 130 QRS: 6 QRSD: 72 T: 71 QT: 322 QTc: 435 Interpretive Statements Sinus tachycardia with premature atrial complexes Electronically Signed On 10-10-2024 13:35:50 PDT by Cosme Meléndez
[2024-10-08 18:25] LABS: Hematocrit 34.8 % (36-46); Hemoglobin 11.6 g/dL (12.0-16.0); Mean Corpuscular HGB Conc 33.3 % (30-36); Mean Corpuscular Hemoglobin 31.3 PG (26-34); Mean Corpuscular Volume 94.0 fL (80-100); Platelet Count 280 X10^3/uL (150-400)
[2024-10-08 18:26] VITALS: BP 120/57; PULSE 106; RESP 16; TEMP 37.1; O2SAT 98
[2024-10-08 18:28] LABS: Add Manual Diff / Slide Review YES; INR 1.2 (0.9-1.3); Prothrombin Time 13.5 SECONDS (9.4-12.5)
[2024-10-08 18:30] LABS: Lactate (Lactic Acid) 1.4 mmol/L (0.7-2.1)
[2024-10-08 18:31] LABS: Alanine Aminotransferase 19 IU/L (<35); Albumin 4.1 g/dL (3.5-5.0); Albumin Globulin Ratio 1.3 (1.0-2.8); Alkaline Phosphatase 181 U/L (38-126); Blood Urea Nitrogen 9 mg/dL (7-17); Calcium 9.1 mg/dL (8.4-10.2); Carbon Dioxide 23 mmol/L (22-32); Chloride 101 mmol/L (98-107); Estimated Glomerular Filt Rate > 60 mL/min (>60); Globulin 3.2 g/dL (1.7-4.1); Glucose 104 mg/dL (70-99); Sodium 135 mmol/L (137-145); Total Protein 7.3 g/dL (6.3-8.2)
[2024-10-08 18:32] LABS: HEMOLYSIS 92 (0-50); Potassium 4.0 mmol/L (3.4-5.1)
[2024-10-08 18:41] LABS: Anisocytosis 2+; Band Neutrophils Percent 7.0 % (3-7); Lymphocytes Percent Manual 4.0 % (25-45); Monocytes Percent Manual 4.0 % (2-11); Neutrophils Absolute Manual 30636 /uL (3000-5900); Segmented Neutrophils Percent 85.0 % (38-70); Total Cells Counted 100
[2024-10-08 18:42] LABS: NT-proBNP (BNP-Adult 18+) 41 pg/mL (<450); Troponin I < 0.012 ng/mL (0.01-0.034)
--- NOTE | 2024-10-08 19:33 | ED.SOB ---
HPI - SOB/Dyspnea General Chief Complaint: Shortness of Breath/Dyspnea Stated Complaint: SOB, chest tightness post chemo Time Seen by Provider: 10/08/24 18:03 Source: patient and family Mode of arrival: Wheelchair History of Present Illness HPI Narrative: 78-year-old female history of bilateral PEs no longer on anticoagulation, current history of bilateral mastectomy with breast cancer on chemo and about to start radiation presents with a nonproductive cough for the past few days along with shortness breath dyspnea on exertion. She denies active chest, pain fever, chills, body aches, sore throat, leg pain or swelling. She has not done anything for this nothing makes it better or worse. Other than what is stated 14 point review of system is negative. Related Data Home Medications ?Medication ?Instructions ?Recorded ?Confirmed albuterol sulfate 90 mcg/actuation 2 puff INH Q4HP PRN Shortness Of 06/15/17 06/24/24 aerosol inhaler (Ventolin HFA) Breath ##0 multivitamin 1 tab PO DAILY 12/03/17 06/24/24 simvastatin 20 mg tablet 20 mg PO BEDTIME 03/01/18 06/24/24 allopurinol 300 mg tablet 300 mg PO DAILY 11/05/19 06/24/24 propranolol 10 mg tablet 10 mg PO DAILY 12/27/22 06/24/24 sertraline 50 mg tablet 50 mg PO DAILY 12/27/22 06/24/24 lisinopril 20 1 tab PO DAILY 11/14/23 06/24/24 mg-hydrochlorothiazide 25 mg tablet aspirin 81 mg tablet,delayed 81 mg PO DAILY 05/10/24 06/24/24 release alprazolam 1 mg tablet (Xanax) 1 mg PO BEDTIME PRN anxiety 06/12/24 06/24/24 Previous Rx's ?Medication ?Instructions ?Recorded hydrocodone 5 mg-acetaminophen 325 1 tab PO Q8H PRN pain #10 tabs 06/13/24 mg tablet azithromycin 250 mg tablet 250 mg PO DAILY 4 days #4 tabs 10/08/24 cefpodoxime 200 mg tablet 200 mg PO BID #14 tabs 10/08/24 doxycycline hyclate 100 mg capsule 100 mg PO BID #10 caps 10/08/24 Allergies Allergy/AdvReac Type Severity Reaction Status Date / Time peanut (PEANUT) Allergy Severe ASTHMA Verified 06/24/24 09:11 REACTION Sulfa (Sulfonamide Allergy Severe WELTS Verified 06/24/24 09:11 Antibiotics) (SULFA (SULFONAMIDE ANTIBIOTICS)) oyster extract (OYSTER Allergy Intermediate Mild Verified 06/24/24 09:11 EXTRACT) throat swelling morphine (MORPHINE) AdvReac Mild NAUSEA, Verified 06/24/24 09:11 DID NOT WORK FOR PAIN Penicillins (PENICILLINS) AdvReac Mild DIARRHEA Verified 06/24/24 09:11 Review of Systems Review of Systems ROS Unobtainable: All systems reviewed & are unremarkable except as noted in HPI and below Patient History Medical History (Updated 10/08/24 @ 22:41 by Manny Thorpe, DO) Hearing loss History of COVID-19 (~2019) Pulmonary embolism, bilateral (2022) Depression, controlled Depression Allergic rhinitis (Unknown) Asthma (Unknown) Eczema (Unknown) Foot pain (Unknown) Fractures (Unknown) Lumbar disc disease (Unknown) Shoulder pain (Unknown) Ankle pain (Unknown) Carpal tunnel syndrome (Unknown) Chronic back pain (Unknown) Cataracts, bilateral (~2014) Painful menstrual periods (~1958) Heavy menstrual period (~1958) Hyperlipemia (Unknown) Osteopenia (Unknown) Asthma (Unknown) Glaucoma (2012) Hypertension (Unknown) Surgical History (Updated 06/07/24 @ 11:06 by Karla Buckner RN) S/P bilateral breast lumpectomy (05/22/24) History of total left knee replacement (11/14/23) History of total right hip replacement (2016) History of colonoscopy (2020) Hx of appendectomy (2015) Hx of cataract surgery (2014) Hx of tonsillectomy (~1953) History of left hip replacement (2015) Family History Child Age: 47 Heart disease Hypertension Stroke Mother Hypertension Stroke High cholesterol Father Heart disease Grandmother Heart disease Grandmother No problems noted. Social History marital status: household members: spouse occupational status: employed Tobacco: How many years used: 5 alcohol intake: current substance use type: does not use alcohol intake frequency: a few times a month Exam Narrative Exam Narrative: GENERAL: [78] year old patient appears stated age. Well-developed patient, in mild distress. HEAD: Atraumatic. Normocephalic. EYES: Pupils equal round and reactive. Extraocular motions intact. No scleral icterus. No injection or drainage. ENT: Nose without bleeding, purulent drainage. Throat without erythema, tonsillar hypertrophy or exudate. Airway patent. Left maxillary sinus tender to palpate NECK: Trachea midline. Non tender CARDIOVASCULAR: Regular rate and rhythm without murmurs, gallops, or rubs. RESPIRATORY: Bilateral crackles at the base GASTROINTESTINAL: Abdomen soft, non-tender, nondistended. EXTREMITIES: No edema or joint tenderness. BACK: Nontender without deformity or crepitance. No flank tenderness. NEURO: AOx3. SKIN: No rash or erythema of visible areas Initial Vital Signs Initial Vital Signs: Vital Signs Temperature 99.0 F 10/08/24 16:19 Pulse Rate 111 H 10/08/24 16:19 Respiratory Rate 20 10/08/24 16:19 Blood Pressure 118/60 10/08/24 16:19 Pulse Oximetry 96 10/08/24 16:19 Oxygen Delivery Method Room Air 10/08/24 16:19 Course Orders Ordered: ED Orders 10/08/24 16:25 XR chest 1V Stat EKG-12 Lead Stat Measure peak expiratory flow STAT RT Consult Eval and Treat STAT 10/08/24 18:12 Complete Blood Count AUTO DIFF Stat Comprehensive Metabolic Panel Stat Lactate (Lactic Acid) Stat NT-proBNP (BNP-Adult 18+) Stat Prothrombin Time INR Stat Troponin I Stat Vital Signs Vital signs: Vital Signs - 8 hr 10/08/24 16:19 10/08/24 18:26 Temperature 99.0 F 98.8 F Pulse Rate 111 H 106 H Respiratory Rate 20 16 Blood Pressure 118/60 120/57 L Pulse Oximetry 96 98 Oxygen Delivery Method Room Air MDM - SOB/Dyspnea Lab Data 10/08/24 18:12 10/08/24 18:12 Labs: Lab Results 10/08/24 Range/Units 18:12 WBC 33.3 H* (4.5-11.0) X10^3/uL RBC 3.71 L (4.0-5.2) X10^6/uL Hgb 11.6 L (12.0-16.0) g/dL Hct 34.8 L (36-46) % MCV 94.0 (80-100) fL MCH 31.3 (26-34) PG MCHC 33.3 (30-36) % RDW 19.3 H (11.6-14.8) % Plt Count 280 (150-400) X10^3/uL Neut % (Auto) Not Reportable Lymph % (Auto) Not Reportable [place] % (Auto) Not Reportable Eos % (Auto) Not Reportable Baso % (Auto) Not Reportable Lymph # (Auto) Not Reportable [place] # (Auto) Not Reportable Baso # (Auto) Not Reportable Total Counted 100 Seg Neutrophils % 85.0 H (38-70) % Band Neutrophils % 7.0 (3-7) % Lymphocytes % (Manual) 4.0 L (25-45) % Monocytes % (Manual) 4.0 (2-11) % Neutrophils # (Manual) 88560 H (0798-5010) /uL RBC Morphology See below Anisocytosis 2+ H PT 13.5 H (9.4-12.5) SECONDS INR 1.2 (0.9-1.3) Sodium 135 L (137-145) mmol/L Potassium 4.0 (3.4-5.1) mmol/L Chloride 101 (98-107) mmol/L Carbon Dioxide 23 (22-32) mmol/L BUN 9 (7-17) mg/dL Creatinine 0.77 (0.52-1.04) mg/dL Estimated GFR > 60 (>60) mL/min BUN/Creatinine Ratio 11.7 (6-22) Glucose 104 H (70-99) mg/dL Lactate 1.4 (0.7-2.1) mmol/L Calcium 9.1 (8.4-10.2) mg/dL Total Bilirubin 0.9 (0.2-1.3) mg/dL AST 36 (14-36) IU/L ALT 19 (<35) IU/L Alkaline Phosphatase 181 H (38-126) U/L Troponin I < 0.012 (0.01-0.034) ng/mL NT-Pro-B Natriuret Pep 41 (<450) pg/mL Total Protein 7.3 (6.3-8.2) g/dL Albumin 4.1 (3.5-5.0) g/dL Globulin 3.2 (1.7-4.1) g/dL Albumin/Globulin Ratio 1.3 (1.0-2.8) Imaging Data CT scan - chest: Radiologist's Impression: [address] [address] [address] Scan Report Signed Patient: Jody Barnard MR#: [id number] : 1945 Acct:[id number] Age/Sex: 78 / F Date of Service: 10/08/24 Loc: ED Accession Number: [id number] Procedure: CT angio chest PE protocol Ordering Provider: Manny Thorpe D.O. PROCEDURE: CT ANGIO CHEST PE PROTOCOL INDICATIONS: chest pain sob /hx of breast cancer TECHNIQUE: After the administration of intravenous contrast, 2 mm thick sections acquired from the pulmonary apices to the posterior costophrenic angles. 3-dimensional maximum intensity projection (MIP) coronal and sagittal reformats were then acquired through the thorax. For radiation dose reduction, the following was used: automated exposure control, adjustment of mA and/or kV according to patient size. COMPARISON: [facility], CT, ABDOMEN/PELVIS WITH CONTRAST, 08/08/2015, 22:18. [facility], CT, CT ANGIO CHEST PE, 04/18/2024, 11:46. [facility], CT, CT ANGIO CHEST PE PROTOCOL, 12/27/2022, 10:06. FINDINGS: Image quality: Diagnostic. Pulmonary arteries: Pulmonary arteries are normal in size, and demonstrate no intraluminal filling defects to suggest central pulmonary embolism. Lower Neck: No enlarged lymph nodes. Thyroid: No thyroid nodules which require sonographic follow up, per consensus guidelines. Axillae: No enlarged lymph nodes. Chest Wall: Right chest wall port tip terminates in the low SVC. Right breast lumpectomy and left breast mastectomy. Bones: Scattered dense bony lesions of the spine, new from 2016. Lungs and Pleura: No pneumothorax or pleural effusions. Stable 6 mm juxtapleural nodule in the right lower lobe compared with 2016, statistically benign. Stable pulmonary micro nodules in the left lower lobe compared to 2016, statistically benign. Mild smooth interstitial thickening and patchy ground-glass . Mild bronchial thickening. Heart: Heart size is normal. No pericardial effusion. Thoracic Vessels: No aortic aneurysm. Mediastinum and Jen: No enlarged lymph nodes. Esophagus: No wall thickening. No hiatal hernia. Upper Abdomen: Hepatic cysts, stable from 2016. IMPRESSION: No pulmonary embolus. Mild smooth interstitial thickening and bronchial thickening, suggestive of pulmonary edema. This could be drug induced. Patchy ground-glass scattered throughout the lungs, possibly air trapping or atypical infection or drug induced pneumonitis. Bilateral surgical changes of the breasts. Suspected osseous metastatic disease, with scattered sclerotic foci of the spine which are new from 2016. Dictated by: Abdoul Cramer M.D. on 10/08/2024 at 20:01 Chest x-ray: Radiologist's Impression: [address] [address] XRay Report Signed Patient: Jody Barnard MR#: [id number] : 1945 Acct:[id number] Age/Sex: 78 / F Date of Service: 10/08/24 Loc: ED Accession Number: [id number] Procedure: XR chest 1V Ordering Provider: Eduard Bates MD PROCEDURE: XR CHEST 1V INDICATIONS: Shortness of breath TECHNIQUE: One view of the chest was acquired. COMPARISON: [facility], CR, XR CHEST 1V, 06/12/2024, 16:05. [facility], CR, XR CHEST 1V, 12/27/2022, 9:52. FINDINGS: Surgical changes and devices: Right chest Port-A-Cath in stable position. Surgical clips project over the breasts bilaterally. Lungs and pleura: Bilateral chronic interstitial prominence. No pleural effusions or pneumothorax. Mediastinum: Mediastinal contours appear normal. Heart size is normal. Bones and chest wall: No suspicious bony lesions. Overlying soft tissues appear unremarkable. IMPRESSION: No acute cardiopulmonary abnormality is seen. MDM Narrative Medical decision making narrative: Vital signs nurse triage note medication list previous ER visits in all imaging study reviewed. WBC 33.3, hemoglobin 11.6, platelet 280 sodium 135 glucose 104 troponin normal BNP normal. CTA showed patchy ground-glass scattered throat lungs possibly air trapping or atypical infection or drug-induced pneumonitis. Mild smooth interstitial thickening and bronchial thickening suggestive of pulmonary edema. Patient given Rocephin Zithromax here. We will be DC on Augmentin and Zithromax. Patient was offered admission at this time but agreeable to come back if any new worsening symptoms. Differential diagnosis includes PE pneumonia sepsis UTI CHF. Discharge Plan Departure Patient Disposition: Home Clinical Impression: Pneumonia Qualifiers: Pneumonia type: due to unspecified organism Laterality: bilateral Lung location: lower lobe of lung Qualified Code(s): J18.9 - Pneumonia, unspecified organism Instructions: DI for Pneumonia -- Adult Activity Restrictions/Additional Instructions: Return with new or worsening symptoms. Follow up with PCP 1-2 weeks if no improvement in symptoms. Take your medicines as directed Prescriptions: New doxycycline hyclate 100 mg capsule 100 mg PO BID Qty: 10 0RF cefpodoxime 200 mg tablet 200 mg PO BID Qty: 14 0RF Rx Instructions: must administer with a meal/food azithromycin 250 mg tablet 250 mg PO DAILY 4 Days Qty: 4 0RF Rx Instructions: start on day 2 of therapy No Action multivitamin Tablet 1 tab PO DAILY Patient Comments: 1 tab PO QDAY albuterol sulfate [Ventolin HFA] 90 MCG/PUFF HFA aerosol inhaler 2 puff INH Q4HP PRN (Reason: Shortness Of Breath) Qty: 0 allopurinol 300 mg tablet 300 mg PO DAILY lisinopril-hydrochlorothiazide 20-25 mg Tablet 1 tab PO DAILY alprazolam [Xanax] 1 mg tablet 1 mg PO BEDTIME PRN (Reason: anxiety) Rx Instructions: she reports that she took a grain this morning. less than 0.25mg. hydrocodone-acetaminophen 5-325 mg tablet 1 tab PO Q8H PRN (Reason: pain) Qty: 10 0RF simvastatin 20 mg tablet 20 mg PO BEDTIME sertraline 50 mg Tablet 50 mg PO DAILY propranolol 10 mg tablet 10 mg PO DAILY aspirin 81 mg Tablet,Delayed Release (Dr/Ec) 81 mg PO DAILY Referrals: Sae Connolly MD [Primary Care Provider, Family Practice] Stand Alone Forms: Patient Portal/API
--- NOTE | 2024-10-08 19:36 | PC.NURSE ---
Pt had last chemo treatment on 09/26/24, and about 2 weeks after she starts to feel bad. But this time is different she is having difficulty breathing with excertion. Monday10/11/24 she will have a scan prior to the start of radiation. Hx: of 2 lymph nodes removed in left axilla, prior to that lump removed from right breast.
[2024-10-08 20:24] VITALS: BP 173/72; PULSE 106; RESP 17; O2SAT 97
[2024-10-08] MEDS: AZITHROMYCIN 500 MG in DEXTROSE 5% IN WATER 250 ML 250 MG IV (21:49)
[2024-10-08 22:00] VITALS: BP 120/94; PULSE 102; RESP 15; O2SAT 96
--- NOTE | 2024-10-08 23:42 | PC.NURSE ---
Pt given vegetable broth, 1 pudding vanilla, 1 jello, and multiple cups of ice chips.
[2024-10-08 23:54] VITALS: BP 121/58; PULSE 100; RESP 19; O2SAT 95
== END 2024-10-08 23:57 | disposition home or self-care (01) ==
PROVIDERS: Emergency Medicine; Emergency Provider Family Medicine; PCP Family Medicine
DX: J18.9 Pneumonia, unspecified organism (principal); R07.9 Chest pain, unspecified; Z85.3 Personal history of malignant neoplasm of breast
CPT/HCPCS: 71045; 71275; 80053; 83605; 83880; 84484; 85007; 85025; 85610; 93005; 96365; 99283; 99284; J0696; Q9967